=== PATIENT | female | born 1945 | race Caucasian/White ===

== ENCOUNTER 2020-08-25 13:16 | Emergency (ER) | payer MEDICARE, SELFPAY ==
[2020-08-25] VITALS (12 sets, daily range): BP systolic 143–194; BP diastolic 70–112; PULSE 69–114; RESP 18–33; TEMP 36.7; O2SAT 84–100; BMI 46.3
--- NOTE | 2020-08-25 14:34 | XR_ITS ---
WS: [id number] PORTABLE CHEST HISTORY: dyspnea/cough COMPARISON: 08/12/2012 Bilateral patchy scattered opacifications and interstitial thickening. New since 08/12/2012. Lung volu mes are slightly decreased. No pleural effusion or pneumothorax. Cardiac size: Normal. Mediastinum/Aorta: Mild atherosclerosis aorta. No osseous abnormality seen. XR/XR chest 1V portable [id number] IMPRESSION: Bilateral interstitial thickening and patchy opacifications. Consistent with mi ld fluid overload or viral pneumonia.
--- NOTE | 2020-08-25 15:05 | W.ED.COVID ---
Documented by User: Milton Storm DO 08/28/20 06:34 HPI - COVID General: Chief Complaint: Shortness of Breath/Dyspnea Stated Complaint: COVID SYMPTOMS Time Seen by Provider: 08/25/20 15:05 Triage information: Has fever, cough or shortness of breath. No known COVID + exposure last 14 days History of Present Illness: HPI Narrative: 75 yo female female presents emergency room with complaint of cough and shortness of breath. 2 weeks ago she had known exposure to COVID-19. She normally is not on oxygen. She presents today with increasing cough and shortness of breath early on in the course she had some diarrhea but that is already resolved. She denies fevers or chills cough is been nonproductive. MD complaint: reported COVID exposure and has COVID symptoms Prior covid testing: no COVID 19 common symptoms: positive fever(s), chills, cough, non-productive cough, dyspnea, fatigue and body aches; negative throat pain, nasal congestion, nausea, vomiting or diarrhea COVID 19 other sytmptoms: positive chest pressure, requiring oxygen and lethargy; negative chest pain Onset (ago): day(s) Severity: severe Pertinent comorbid conditions: diabetes, hypertension, COPD/respiratory disease and obesity Treatment prior to arrival: none COVID Results: SARS-CoV-2 Antigen (Rapid) Positive (Negative) H 08/25/20 16:10 08/25/20 Review of Systems Const: Reports: fever(s), chills, body aches and fatigue ENMT: Denies: throat pain, ear or mastoid pain, nasal discharge or nasal congestion Card: Denies: chest pain, edema, dyspnea on exertion or orthopnea Resp: Reports: dyspnea and non-productive cough GI: Denies: abdominal pain, nausea, vomiting, hematemesis, coffee ground emesis, diarrhea, constipation, bloating, hematochezia or melena : Denies: flank pain, difficulty voiding, dysuria, urinary frequency or urinary urgency Skin/Breast: Denies: rash or pruritus PFSH ED PFSH: Medical History (Updated 08/25/20 @ 17:34 by Milton Storm DO) COPD (chronic obstructive pulmonary disease) Diabetes mellitus Hypertension Physical Exam Const: COMMON NORMALS: no acute distress GENERAL APPEARANCE: cooperative and comfortable ORIENTATION/CONSCIOUSNESS: Yes awake, Yes oriented to person, Yes oriented to place and Yes oriented to time HENMT: COMMON NORMALS: normocephalic, atraumatic and hearing grossly normal bilaterally HEAD & SCALP: normocephalic and atraumatic Eye: COMMON NORMALS: Equal, round and reactive pupils present, EOMs intact bilaterally, conjunctivae normal and no scleral icterus CONJUNCTIVA: Yes conjunctivae normal PUPIL: Yes Equal, round and reactive pupils present Neck/C-Spine: COMMON NORMALS: no JVD Resp: AUSCULTATION: rhonchi and wheezes Cardio: COMMON NORMALS: no JVD, regular rate, regular rhythm and No murmurs present (Cardio) RATE: regular rate RHYTHM: regular rhythm GI: COMMON NORMALS: Soft to palpation and No hepatosplenomegaly present AUSCULTATION: Yes normoactive bowel sounds PALPATION: Yes Soft to palpation, No Tenderness to palpation present (GI), No Guarding due to palpation present (GI) and Yes No hepatosplenomegaly present Extremity: COMMON NORMALS: normal to inspection, capillary refill normal, no clubbing, cyanosis or edema, no calf tenderness and no pedal edema Neuro: SENSORIUM/ORIENTATION: Yes oriented to person, Yes oriented to place and Yes oriented to time Skin: COMMON NORMALS: no rashes or lesions noted GENERAL SKIN EXAM: no rashes or lesions noted Course Vital Signs: Vital signs: Vital Signs Temperature 98.1 F 08/26/20 02:32 Pulse Rate 93 08/26/20 02:32 Respiratory Rate 25 H 08/26/20 02:32 Blood Pressure 170/97 08/26/20 02:32 Pulse Oximetry 92 08/26/20 02:32 MDM - COVID MDM Narrative: Medical decision making narrative: Patient will require VICU due to increased oxygen needs. She has been given remdesivir and dexamethasone as well as Lovenox because her D-dimer is greater than 20. At this time are waiting on a CTA of the chest anticipate transfer to appropriate facility once bed is found. Care transferred to Dr. Denton at change of shift. Lab Data: Labs: Lab Results 08/25/20 08/25/20 08/25/20 Range/Units 15:32 15:32 15:32 WBC 9.0 (4.0-10.0) 10^3/ uL RBC 3.87 L (4.1-5.3) 10^6/u L Hgb 10.9 L (11.5-15.3) g/dL Hct 35.3 L (37.0-47.0) % MCV 91.2 (81-99) fL MCH 28.2 (28.0-34.0) pg MCHC 30.9 (30.0-36.0) g/dL RDW 15.5 H (12.1-15.1) % Plt Count 152 (130-400) 10^3/c mm MPV 11.1 H (7.4-10.4) fL Neut % (Auto) 72.9 % Lymph % (Auto) 9.0 % Graves % (Auto) 13.5 % Eos % (Auto) 1.9 % Baso % (Auto) 0.4 % Neut # (Auto) 6.56 (1.8-7.7) 10^3/u L Lymph # (Auto) 0.8 (0.8-4.8) 10^3/u L Graves # (Auto) 1.2 H (0.2-0.9) 10^3/u L Eos # (Auto) 0.2 (0.0-0.8) 10^3/u L Baso # (Auto) 0.0 (0.0-0.1) 10^3/u L Nucleated RBC % (a uto) 0.6 % Nucleated RBCs # 0.1 /100WBC Fibrinogen 426 (174-498) mg/dL D-Dimer >= 20.00 H (0-0.59) ug/mIFE U Specimen Type Sample Site ABG pH (7.35-7.45) ABG pCO2 (35-45) mmHg ABG pO2 (80.0-100.0) mmH g ABG HCO3 (22-26) mmol/L ABG Base Excess (-2.0-2.0) mmol/ L Silas Test Hematocrit (37-47) % O2 Delivery Device O2 Liters/Min % FiO2 % Special Effects Technician ID Sodium 142 (136-145) mmol/L Potassium 3.6 (3.5-5.1) mmol/L Chloride 102 (98-107) mmol/L Carbon Dioxide 25 (22-29) mmol/L Anion Gap 18.6 (5-19) BUN 27 H (8-23) mg/dL Creatinine 1.0 H (0.5-0.9) mg/dL GFR Calculation Not Reportable Glucose 277 H (65-115) mg/dL POC Glucose (70-110) mg/dL Calculated Osmolal ity 309 H (285-295) mOsm/k g Lactic Acid (0.5-2.2) mmol/L Calcium 9.1 (8.5-10.5) mg/dL Total Bilirubin 0.5 (0.15-1.2) mg/dL AST 16 (0-32) U/L ALT 12 (0-33) U/L Alkaline Phosphata se 122 H (35-105) IU/L Lactate Dehydrogen ase 485 H (135-214) U/L C-Reactive Protein 226.8 H (0.0-4.9) mg/L Total Protein 6.9 (6.6-8.7) g/dL Albumin 3.3 L (3.5-5.2) g/dL Globulin 3.6 (1.3-4.6) g/dL Procalcitonin 0.29 (0-0.5) ng/mL SARS-CoV-2 Ag (Rap id) (Negative) 08/25/20 08/25/20 08/25/20 Range/Units 15:32 16:10 16:37 WBC (4.0-10.0) 10^3/ uL RBC (4.1-5.3) 10^6/u L Hgb (11.5-15.3) g/dL Hct (37.0-47.0) % MCV (81-99) fL MCH (28.0-34.0) pg MCHC (30.0-36.0) g/dL RDW (12.1-15.1) % Plt Count (130-400) 10^3/c mm MPV (7.4-10.4) fL Neut % (Auto) % Lymph % (Auto) % Graves % (Auto) % Eos % (Auto) % Baso % (Auto) % Neut # (Auto) (1.8-7.7) 10^3/u L Lymph # (Auto) (0.8-4.8) 10^3/u L Graves # (Auto) (0.2-0.9) 10^3/u L Eos # (Auto) (0.0-0.8) 10^3/u L Baso # (Auto) (0.0-0.1) 10^3/u L Nucleated RBC % (a uto) % Nucleated RBCs # /100WBC Fibrinogen (174-498) mg/dL D-Dimer (0-0.59) ug/mIFE U Specimen Type Arterial Sample Site Radial, left ABG pH 7.38 (7.35-7.45) ABG pCO2 44.8 (35-45) mmHg ABG pO2 73.7 L (80.0-100.0) mmH g ABG HCO3 26.6 H (22-26) mmol/L ABG Base Excess 1.2 (-2.0-2.0) mmol/ L Silas Test Pos Hematocrit 33.6 L (37-47) % O2 Delivery Device Nc O2 Liters/Min % FiO2 36.0 % Special Effects Technician ID Cak Sodium (136-145) mmol/L Potassium (3.5-5.1) mmol/L Chloride (98-107) mmol/L Carbon Dioxide (22-29) mmol/L Anion Gap (5-19) BUN (8-23) mg/dL Creatinine (0.5-0.9) mg/dL GFR Calculation Glucose (65-115) mg/dL POC Glucose (70-110) mg/dL Calculated Osmolal ity (285-295) mOsm/k g Lactic Acid 1.9 (0.5-2.2) mmol/L Calcium (8.5-10.5) mg/dL Total Bilirubin (0.15-1.2) mg/dL AST (0-32) U/L ALT (0-33) U/L Alkaline Phosphata se (35-105) IU/L Lactate Dehydrogen ase (135-214) U/L C-Reactive Protein (0.0-4.9) mg/L Total Protein (6.6-8.7) g/dL Albumin (3.5-5.2) g/dL Globulin (1.3-4.6) g/dL Procalcitonin (0-0.5) ng/mL SARS-CoV-2 Ag (Rap id) Positive H (Negative) 08/25/20 08/26/20 08/26/20 Range/Units 20:24 00:41 02:01 WBC (4.0-10.0) 10^3/ uL RBC (4.1-5.3) 10^6/u L Hgb (11.5-15.3) g/dL Hct (37.0-47.0) % MCV (81-99) fL MCH (28.0-34.0) pg MCHC (30.0-36.0) g/dL RDW (12.1-15.1) % Plt Count (130-400) 10^3/c mm MPV (7.4-10.4) fL Neut % (Auto) % Lymph % (Auto) % Graves % (Auto) % Eos % (Auto) % Baso % (Auto) % Neut # (Auto) (1.8-7.7) 10^3/u L Lymph # (Auto) (0.8-4.8) 10^3/u L Graves # (Auto) (0.2-0.9) 10^3/u L Eos # (Auto) (0.0-0.8) 10^3/u L Baso # (Auto) (0.0-0.1) 10^3/u L Nucleated RBC % (a uto) % Nucleated RBCs # /100WBC Fibrinogen (174-498) mg/dL D-Dimer (0-0.59) ug/mIFE U Specimen Type Arterial Sample Site Brachial, right ABG pH 7.37 (7.35-7.45) ABG pCO2 44.1 (35-45) mmHg ABG pO2 78.0 L (80.0-100.0) mmH g ABG HCO3 25.6 (22-26) mmol/L ABG Base Excess 0.1 (-2.0-2.0) mmol/ L Silas Test Pos Hematocrit 33.8 L (37-47) % O2 Delivery Device Nc O2 Liters/Min 6.0 % FiO2 44.0 % Special Effects Technician ID [id number] Sodium (136-145) mmol/L Potassium (3.5-5.1) mmol/L Chloride (98-107) mmol/L Carbon Dioxide (22-29) mmol/L Anion Gap (5-19) BUN (8-23) mg/dL Creatinine (0.5-0.9) mg/dL GFR Calculation Glucose (65-115) mg/dL POC Glucose 344 284 (70-110) mg/dL Calculated Osmolal ity (285-295) mOsm/k g Lactic Acid (0.5-2.2) mmol/L Calcium (8.5-10.5) mg/dL Total Bilirubin (0.15-1.2) mg/dL AST (0-32) U/L ALT (0-33) U/L Alkaline Phosphata se (35-105) IU/L Lactate Dehydrogen ase (135-214) U/L C-Reactive Protein (0.0-4.9) mg/L Total Protein (6.6-8.7) g/dL Albumin (3.5-5.2) g/dL Globulin (1.3-4.6) g/dL Procalcitonin (0-0.5) ng/mL SARS-CoV-2 Ag (Rap id) (Negative) COVID Results: SARS-CoV-2 Antigen (Rapid) Positive (Negative) H 08/25/20 16:10 08/25/20 Discharge Plan Discharge Patient Disposition: Xfer Short-Term Hosp Clinical Impression: Pneumonia due to 2019-nCoV, Diabetes mellitus, COPD (chronic obstructive pulmonary disease), Hypertension Condition: Stable Referrals: Chinmay Mendoza [Primary Care Provider] - Coding Level of Care Code ED Telecommunications Equipment Installer for Chg Fwd Exam Comprehensive Documented by User: Abisai Denton DO 08/26/20 04:41 HPI - COVID General: Chief Complaint: Shortness of Breath/Dyspnea Stated Complaint: COVID SYMPTOMS Time Seen by Provider: 08/25/20 15:05 COVID Results: SARS-CoV-2 Antigen (Rapid) Positive (Negative) H 08/25/20 16:10 08/25/20 PFS ED PFSH: Medical History (Updated 08/25/20 @ 17:34 by Milton Storm DO) COPD (chronic obstructive pulmonary disease) Diabetes mellitus Hypertension Course Vital Signs: Vital signs: Vital Signs Temperature 98.1 F 08/26/20 02:32 Pulse Rate 93 08/26/20 02:32 Respiratory Rate 25 H 08/26/20 02:32 Blood Pressure 170/97 08/26/20 02:32 Pulse Oximetry 92 08/26/20 02:32 MDM - COVID MDM Narrative: Medical decision making narrative: 75-year-old female checked out to me at shift change by Dr. Storm. This lady is COVID-19 positive. She does not have a pulmonary embolus, but does have significant infiltrates on CTA. She is requiring quite a bit of oxygen, 5 to 6 L by oxygen mask at this point. Her blood pressure is 165/89. We have no viral ICU beds available in our hospital system currently. We have called multiple facilities. We have an accepting physician at bed at [facility]. She has been quite stable here, but has desaturations frequently with any activity such as getting up to the bedside commode. She is received remdesivir here, as well as dexamethasone. She is awaiting EMS transfer. Helicopter transfer has been requested, but denied due to weather. Lab Data: Labs: Lab Results 08/25/20 08/25/20 08/25/20 Range/Units 15:32 15:32 15:32 WBC 9.0 (4.0-10.0) 10^3/ uL RBC 3.87 L (4.1-5.3) 10^6/u L Hgb 10.9 L (11.5-15.3) g/dL Hct 35.3 L (37.0-47.0) % MCV 91.2 (81-99) fL MCH 28.2 (28.0-34.0) pg MCHC 30.9 (30.0-36.0) g/dL RDW 15.5 H (12.1-15.1) % Plt Count 152 (130-400) 10^3/c mm MPV 11.1 H (7.4-10.4) fL Neut % (Auto) 72.9 % Lymph % (Auto) 9.0 % Graves % (Auto) 13.5 % Eos % (Auto) 1.9 % Baso % (Auto) 0.4 % Neut # (Auto) 6.56 (1.8-7.7) 10^3/u L Lymph # (Auto) 0.8 (0.8-4.8) 10^3/u L Graves # (Auto) 1.2 H (0.2-0.9) 10^3/u L Eos # (Auto) 0.2 (0.0-0.8) 10^3/u L Baso # (Auto) 0.0 (0.0-0.1) 10^3/u L Nucleated RBC % (a uto) 0.6 % Nucleated RBCs # 0.1 /100WBC Fibrinogen 426 (174-498) mg/dL D-Dimer >= 20.00 H (0-0.59) ug/mIFE U Specimen Type Sample Site ABG pH (7.35-7.45) ABG pCO2 (35-45) mmHg ABG pO2 (80.0-100.0) mmH g ABG HCO3 (22-26) mmol/L ABG Base Excess (-2.0-2.0) mmol/ L Silas Test Hematocrit (37-47) % O2 Delivery Device O2 Liters/Min % FiO2 % Special Effects Technician ID Sodium 142 (136-145) mmol/L Potassium 3.6 (3.5-5.1) mmol/L Chloride 102 (98-107) mmol/L Carbon Dioxide 25 (22-29) mmol/L Anion Gap 18.6 (5-19) BUN 27 H (8-23) mg/dL Creatinine 1.0 H (0.5-0.9) mg/dL GFR Calculation Not Reportable Glucose 277 H (65-115) mg/dL POC Glucose (70-110) mg/dL Calculated Osmolal ity 309 H (285-295) mOsm/k g Lactic Acid (0.5-2.2) mmol/L Calcium 9.1 (8.5-10.5) mg/dL Total Bilirubin 0.5 (0.15-1.2) mg/dL AST 16 (0-32) U/L ALT 12 (0-33) U/L Alkaline Phosphata se 122 H (35-105) IU/L Lactate Dehydrogen ase 485 H (135-214) U/L C-Reactive Protein 226.8 H (0.0-4.9) mg/L Total Protein 6.9 (6.6-8.7) g/dL Albumin 3.3 L (3.5-5.2) g/dL Globulin 3.6 (1.3-4.6) g/dL Procalcitonin 0.29 (0-0.5) ng/mL SARS-CoV-2 Ag (Rap id) (Negative) 08/25/20 08/25/20 08/25/20 Range/Units 15:32 16:10 16:37 WBC (4.0-10.0) 10^3/ uL RBC (4.1-5.3) 10^6/u L Hgb (11.5-15.3) g/dL Hct (37.0-47.0) % MCV (81-99) fL MCH (28.0-34.0) pg MCHC (30.0-36.0) g/dL RDW (12.1-15.1) % Plt Count (130-400) 10^3/c mm MPV (7.4-10.4) fL Neut % (Auto) % Lymph % (Auto) % Graves % (Auto) % Eos % (Auto) % Baso % (Auto) % Neut # (Auto) (1.8-7.7) 10^3/u L Lymph # (Auto) (0.8-4.8) 10^3/u L Graves # (Auto) (0.2-0.9) 10^3/u L Eos # (Auto) (0.0-0.8) 10^3/u L Baso # (Auto) (0.0-0.1) 10^3/u L Nucleated RBC % (a uto) % Nucleated RBCs # /100WBC Fibrinogen (174-498) mg/dL D-Dimer (0-0.59) ug/mIFE U Specimen Type Arterial Sample Site Radial, left ABG pH 7.38 (7.35-7.45) ABG pCO2 44.8 (35-45) mmHg ABG pO2 73.7 L (80.0-100.0) mmH g ABG HCO3 26.6 H (22-26) mmol/L ABG Base Excess 1.2 (-2.0-2.0) mmol/ L Silas Test Pos Hematocrit 33.6 L (37-47) % O2 Delivery Device Nc O2 Liters/Min % FiO2 36.0 % Special Effects Technician ID Cak Sodium (136-145) mmol/L Potassium (3.5-5.1) mmol/L Chloride (98-107) mmol/L Carbon Dioxide (22-29) mmol/L Anion Gap (5-19) BUN (8-23) mg/dL Creatinine (0.5-0.9) mg/dL GFR Calculation Glucose (65-115) mg/dL POC Glucose (70-110) mg/dL Calculated Osmolal ity (285-295) mOsm/k g Lactic Acid 1.9 (0.5-2.2) mmol/L Calcium (8.5-10.5) mg/dL Total Bilirubin (0.15-1.2) mg/dL AST (0-32) U/L ALT (0-33) U/L Alkaline Phosphata se (35-105) IU/L Lactate Dehydrogen ase (135-214) U/L C-Reactive Protein (0.0-4.9) mg/L Total Protein (6.6-8.7) g/dL Albumin (3.5-5.2) g/dL Globulin (1.3-4.6) g/dL Procalcitonin (0-0.5) ng/mL SARS-CoV-2 Ag (Rap id) Positive H (Negative) 08/25/20 08/26/20 08/26/20 Range/Units 20:24 00:41 02:01 WBC (4.0-10.0) 10^3/ uL RBC (4.1-5.3) 10^6/u L Hgb (11.5-15.3) g/dL Hct (37.0-47.0) % MCV (81-99) fL MCH (28.0-34.0) pg MCHC (30.0-36.0) g/dL RDW (12.1-15.1) % Plt Count (130-400) 10^3/c mm MPV (7.4-10.4) fL Neut % (Auto) % Lymph % (Auto) % Graves % (Auto) % Eos % (Auto) % Baso % (Auto) % Neut # (Auto) (1.8-7.7) 10^3/u L Lymph # (Auto) (0.8-4.8) 10^3/u L Graves # (Auto) (0.2-0.9) 10^3/u L Eos # (Auto) (0.0-0.8) 10^3/u L Baso # (Auto) (0.0-0.1) 10^3/u L Nucleated RBC % (a uto) % Nucleated RBCs # /100WBC Fibrinogen (174-498) mg/dL D-Dimer (0-0.59) ug/mIFE U Specimen Type Arterial Sample Site Brachial, right ABG pH 7.37 (7.35-7.45) ABG pCO2 44.1 (35-45) mmHg ABG pO2 78.0 L (80.0-100.0) mmH g ABG HCO3 25.6 (22-26) mmol/L ABG Base Excess 0.1 (-2.0-2.0) mmol/ L Silas Test Pos Hematocrit 33.8 L (37-47) % O2 Delivery Device Nc O2 Liters/Min 6.0 % FiO2 44.0 % Special Effects Technician ID [id number] Sodium (136-145) mmol/L Potassium (3.5-5.1) mmol/L Chloride (98-107) mmol/L Carbon Dioxide (22-29) mmol/L Anion Gap (5-19) BUN (8-23) mg/dL Creatinine (0.5-0.9) mg/dL GFR Calculation Glucose (65-115) mg/dL POC Glucose 344 284 (70-110) mg/dL Calculated Osmolal ity (285-295) mOsm/k g Lactic Acid (0.5-2.2) mmol/L Calcium (8.5-10.5) mg/dL Total Bilirubin (0.15-1.2) mg/dL AST (0-32) U/L ALT (0-33) U/L Alkaline Phosphata se (35-105) IU/L Lactate Dehydrogen ase (135-214) U/L C-Reactive Protein (0.0-4.9) mg/L Total Protein (6.6-8.7) g/dL Albumin (3.5-5.2) g/dL Globulin (1.3-4.6) g/dL Procalcitonin (0-0.5) ng/mL SARS-CoV-2 Ag (Rap id) (Negative) COVID Results: SARS-CoV-2 Antigen (Rapid) Positive (Negative) H 08/25/20 16:10 08/25/20 Discharge Plan Discharge Patient Disposition: Xfer Short-Term Hosp Clinical Impression: Pneumonia due to 2019-nCoV, Diabetes mellitus, COPD (chronic obstructive pulmonary disease), Hypertension Condition: Stable Referrals: Chinmay Mendoza [Primary Care Provider] - Coding Level of Care Code ED Telecommunications Equipment Installer for Chg Fwd Exam Comprehensive
--- NOTE | 2020-08-25 15:40 | CTR_ITS ---
PROCEDURE INFORMATION: Exam: CT Angiography Chest With Contrast Exam date and time: 08/25/2020 5:56 PM Age: 75 years old Clinical indication: Cough and shortness of breath; Patient HX: Covid+ w cough and SOB; Additional info: Dyspnea TECHNIQUE: Imaging protocol: Computed tomographic angiography of the chest with intravenous contrast. 3D rendering (Not supervised by radiologist): MIP and/or 3D reconstructed images were created by the technologist. Radiation optimization: All CT scans at this facility use at least one of these dose optimization techniques: automated exposure control; mA and/or kV adjustment per patient size (includes targeted exams where dose is matched to clinical indication); or iterative reconstruction. Contrast material: VISI 320; Contrast volume: 58 ml; Contrast route: INTRAVENOUS (IV); COMPARISON: CR XR chest 1V portable [id number] 08/25/2020 2:44 PM RADIATION DOSE METRICS: Total DLP (mGy-cm): 520.82 FINDINGS: Pulmonary arteries: There is no pulmonary embolus. Aorta: Unremarkable. No aortic aneurysm. No aortic dissection. Lungs: Bilateral multifocal ground-glass/airspace opacities are noted in the lungs. Pleural space: Unremarkable. No pneumothorax. No pleural effusion. Heart: The heart is enlarged. Lymph nodes: Multiple subcentimeter lymph nodes are noted in the mediastinum. There is no pathologic adenopathy. Gallbladder and bile ducts: There has been a cholecystectomy. There is pneumobilia. Bones/joints: Unremarkable. No acute fracture. Soft tissues: Unremarkable. CT/CT angio chest PE protcl [id number] IMPRESSION: 1. There is no pulmonary embolus. 2. Bilateral multifocal ground-glass/airspace opacities are noted in the lungs. Commonly reported imaging features of COVID-19 pneumonia are present. Other processes such as influenza pneumonia and organizing pneumonia, as can be seen with drug toxicity and connective tissue disease, can cause a similar imaging pattern. (Reference: Meir) REFERENCES: Meir Lopez, et al., Radiological Society of [place] Expert Consensus Statement on Reporting Chest CT Findings Related to COVID-19. Endorsed by the Society of Thoracic Radiology, the [place] [employer], and RSNA. Published December 29, 2019. Radiation Dose CTDIVOL = (mGy): DLP = 520.82 (mGy-cm)
[2020-08-25 15:48] LABS: Basophils % 0.4 %; Eosinophils # 0.2 10^3/uL (0.0-0.8); Eosinophils % 1.9 %; Hematocrit 35.3 % (37.0-47.0); Hemoglobin 10.9 g/dL (11.5-15.3); Lymphocytes # 0.8 10^3/uL (0.8-4.8); Mean Corpuscular HGB Conc 30.9 g/dL (30.0-36.0); Mean Corpuscular Hemoglobin 28.2 pg (28.0-34.0); Mean Corpuscular Volume 91.2 fL (81-99); Mean Platelet Volume 11.1 fL (7.4-10.4); Monocytes # 1.2 10^3/uL (0.2-0.9); Monocytes % 13.5 %; Neutrophils # 6.56 10^3/uL (1.8-7.7); Neutrophils % 72.9 %; Nucleated Red Blood Cells # 0.1 /100WBC; Nucleated Red Blood Cells % 0.6 %; Platelet Count 152 10^3/cmm (130-400); Red Blood Count 3.87 10^6/uL (4.1-5.3); Red Cell Distribution Width 15.5 % (12.1-15.1)
[2020-08-25 15:59] LABS: Fibrinogen 426 mg/dL (174-498)
[2020-08-25 16:12] LABS: D Dimer >= 20.00 ug/mIFEU (0-0.59)
[2020-08-25] MEDS: dexamethasone 4 mg/mL INJ 6 MG IVP (16:18)
[2020-08-25 16:19] LABS: Procalcitonin 0.29 ng/mL (0-0.5)
[2020-08-25 16:25] LABS: Lactic Sepsis W/Reflex 1.9 mmol/L (0.5-2.2)
--- NOTE | 2020-08-25 16:32 | ECG_ITS ---
[facility] Test Date: 2020-08-25 Pat Name: Aga Dalton Department: Room: Gender: Female Systems Integration Analyst: : 1945 Requested By: Milton Silva Order Number: [id number] Philipp MD: Madiha Ryan M.D. Measurements Intervals [place] Rate: 103 P: 48 [place]: 148 QRS: -1 QRSD: 90 T: 31 QT: 337 QTc: 443 Interpretive Statements SINUS TACHYCARDIA MODERATE ST DEPRESSION [0.05+ mV ST DEPRESSION] No previous ECG available for comparison Electronically Signed On 08-25-2020 19:45:57 SCHOOL CHILDCARE ATTENDANT by Madiha Ryan M.D. [id number]
[2020-08-25 16:48] LABS: SARS Covid-2 Antigen Positive (Negative)
[2020-08-25 16:49] LABS: ABG PCO2 44.8 mmHg (35-45); ABG PH Result 7.38 (7.35-7.45); Arterial Blood Gas Hematocrit 33.6 % (37-47); Base Excess ABG 1.2 mmol/L (-2.0-2.0); Blood Gas Allen Test Pos; Blood Gas Operator Identificat CAK; Blood Gas Sample Site Radial, left; Blood Gas Sample Type Arterial; HCO3 ABG 26.6 mmol/L (22-26); Oxygen Device NC; PO2 ABG 73.7 mmHg (80.0-100.0)
[2020-08-25 17:27] LABS: Alanine Aminotransferase 12 U/L (0-33); Albumin Level 3.3 g/dL (3.5-5.2); Alkaline Phosphatase 122 IU/L (35-105); Anion Gap 18.6 (5-19); Aspartate Amino Transferase 16 U/L (0-32); Blood Urea Nitrogen 27 mg/dL (8-23); C Reactive Protein 226.8 mg/L (0.0-4.9); Calcium 9.1 mg/dL (8.5-10.5); Carbon Dioxide 25 mmol/L (22-29); Chloride 102 mmol/L (98-107); Globulin 3.6 g/dL (1.3-4.6); Glucose 277 mg/dL (65-115); Lactate Dehydrogenase 485 U/L (135-214); Osmolality Calculated 309 mOsm/kg (285-295); Potassium 3.6 mmol/L (3.5-5.1); Sodium 142 mmol/L (136-145); Total Bilirubin 0.5 mg/dL (0.15-1.2); Total Protein 6.9 g/dL (6.6-8.7)
[2020-08-25] MEDS: iodixanol 320 mg/mL 100mL Btl IV (18:00)
[2020-08-25] MEDS: LORazepam 2 mg/mL INJ 1 mL 1 MG IVP (18:20)
[2020-08-25] MEDS: enoxaparin 120 mg/0.8 mL Syringe SUBCUT (18:21)
--- NOTE | 2020-08-25 19:50 | ECG_ITS ---
[facility] Test Date: 2020-08-25 Pat Name: Aga Dalton Department: Room: Gender: Female Senior Principal Process Engineer: : 1945 Requested By: Abisai Hanson Order Number: [id number] Segal MD: Madiha Ryan M.D. Measurements Intervals [place] Rate: 111 P: 44 OR: 168 QRS: -9 QRSD: 93 T: 22 QT: 348 QTc: 474 Interpretive Statements SINUS TACHYCARDIA POSSIBLE LEFT ATRIAL ENLARGEMENT [-0.1mV P WAVE IN V1/V2] MODERATE ST DEPRESSION [0.05+ mV ST DEPRESSION] Compared to ECG 08/25/2020 16:49:17 No significant changes Electronically Signed On 08-25-2020 23:18:02 PORTFOLIO CONSULTANT by Madiha Ryan M.D. [id number] f
--- NOTE | 2020-08-25 20:05 | PC.NURSE ---
While giving patient her medication she started asking if we found that pill out there. When she was asked what she meant patient began telling me to go out and tell him to measure that and starting asking if Karen was coming in. Physician notified of change in mental status.
[2020-08-25] MEDS: metoprolol tartrate 1 mg/1 mL SDV 5 mL 5 MG IV ×2 (20:06→23:23)
[2020-08-25 20:35] LABS: ABG PCO2 44.1 mmHg (35-45); ABG PH Result 7.37 (7.35-7.45); Arterial Blood Gas Hematocrit 33.8 % (37-47); Base Excess ABG 0.1 mmol/L (-2.0-2.0); Blood Gas Allen Test Pos; Blood Gas Sample Site Brachial, right; Blood Gas Sample Type Arterial; HCO3 ABG 25.6 mmol/L (22-26); Oxygen Device NC
[2020-08-25] MEDS: enalaprilat 1.25 mg/mL Inj IVP (23:23)
[2020-08-26] VITALS: BP 174/74; PULSE 95; RESP 29; O2SAT 98
[2020-08-26 00:15] VITALS: BP 174/74; PULSE 93; RESP 26; O2SAT 97
[2020-08-26 00:45] VITALS: BP 141/82; PULSE 92; RESP 26; O2SAT 97
[2020-08-26 00:46] LABS: Glucose Point of Care 344 mg/dL (70-110)
[2020-08-26 01:00] VITALS: BP 126/86; PULSE 106; RESP 15; O2SAT 94
[2020-08-26] MEDS: insulin regular-human 100 units/1 mL 6 UNIT IVP (01:00)
[2020-08-26 01:30] VITALS: BP 164/73; PULSE 92; RESP 27; O2SAT 97
[2020-08-26 02:08] LABS: Glucose Point of Care 284 mg/dL (70-110)
[2020-08-26] MEDS: insulin regular-human 100 units/1 mL 8 UNIT IVP (02:16)
[2020-08-26 02:32] VITALS: BP 170/97; PULSE 93; RESP 25; TEMP 36.7; O2SAT 92
--- NOTE | 2020-08-26 03:27 | PC.SOCIAL ---
Multiple facilities contacted seeking a [facility] ICU bed. Availability at [facility], they spoke to Dr. Denton and accepted.
== END 2020-08-26 02:32 | disposition short-term general hospital (02) ==
PROVIDERS: Family Medicine; Emergency Provider Emergency Medicine; PCP Family Medicine
DX: J44.0 Chronic obstructive pulmonary disease with (acute) lower respiratory infection (principal); J12.89 Other viral pneumonia; U07.1 COVID-19; E11.9 Type 2 diabetes mellitus without complications; I10 Essential (primary) hypertension
CPT/HCPCS: 12345; 36415; 36416; 36600; 71045; 71275; 80053; 82803; 82962; 83605; 83615; 84145; 85025; 85378; 85384; 86140; 87426; 93005; 96365; 96372; 96375; 96376; 99284; 99285; J1100; J1650; J1815; J2060; J3490; Q9967

== ENCOUNTER → 2021-02-12 08:52 | Outpatient (BNVA) | payer MEDICARE, SELFPAY | PROVIDERS: PCP Family Medicine; Visit Provider Nurse Practitioner Family | DX: M15.4 Erosive (osteo)arthritis (principal); M79.645 Pain in left finger(s) | CPT/HCPCS: 73140; 84550 ==

== ENCOUNTER → 2022-09-12 16:57 | Outpatient (BNVA) | payer MEDICARE, SELFPAY | PROVIDERS: PCP Family Medicine; Visit Provider Family Medicine | DX: L03.011 Cellulitis of right finger (principal); K92.1 Melena; E10.69 Type 1 diabetes mellitus with other specified complication | CPT/HCPCS: 83550; 85025 ==

== ENCOUNTER → 2022-12-09 10:49 | Outpatient (BNVA) | payer MEDICARE, SELFPAY | PROVIDERS: PCP Family Medicine; Visit Provider Podiatrist Foot & Ankle Surgery | DX: I73.9 Peripheral vascular disease, unspecified (principal); E10.69 Type 1 diabetes mellitus with other specified complication; B35.1 Tinea unguium; L84 Corns and callosities | CPT/HCPCS: 11056; 11721; 73630; 99204 ==

== ENCOUNTER → 2023-01-08 09:57 | Outpatient (BNVA) | payer MEDICARE, SELFPAY | PROVIDERS: PCP Family Medicine; Visit Provider Family Medicine | DX: R10.2 Pelvic and perineal pain (principal); R82.998 Other abnormal findings in urine; E11.9 Type 2 diabetes mellitus without complications; N39.0 Urinary tract infection, site not specified | CPT/HCPCS: 81003; 83036; 87086 ==

== ENCOUNTER 2023-01-14 08:40 | Outpatient (CLI) | payer MEDICARE, SELFPAY ==
--- NOTE | 2023-01-14 09:00 | USCV_ITS ---
Aga Dalton Age: 78 Gender: F : 1945 Exam Date: 01/14/2023 09:11 Ordering Phys: Chinmay Segovia DPM Technologist: Exam Location: [facility] [place] Indication: pad RIGHT LEFT Brachial 182.00 mmHg Brachial 178.00 mmHg Pressure (mmHg) Waveform Pressure (mmHg) Waveform 220.00 BARREL CLEANER 220.00 220.00 DPA 220.00 70.00 Pre-Exercise Toe Pressure 64.00 0.38 Pre-Exercise Toe/Brachial Index 0.35 FINDINGS Noncompressible ankle vessels bilaterally Preexercise toe-brachial index of 0.38 on the right and 0.35 on the left CONCLUSIONS 1. Features of extensive arterial sclerosis bilaterally 2. Abnormal toe brachial indices bilaterally suggesting moderate peripheral arterial disease possibly involving the distal vessels Dr Jeet Lynn MD [facility] (Electronically Signed) Final Date: 14 January 2023 17:21 S
== END 2023-01-14 08:41 | disposition home or self-care (01) ==
LOC: RAD 08:44
PROVIDERS: PCP Family Medicine; Visit Provider Podiatrist Foot & Ankle Surgery
DX: I73.9 Peripheral vascular disease, unspecified (principal); I25.10 Atherosclerotic heart disease of native coronary artery without angina pectoris
CPT/HCPCS: 93923

== ENCOUNTER → 2023-01-27 09:26 | Outpatient (BNVA) | payer MEDICARE, SELFPAY | PROVIDERS: PCP Family Medicine; Visit Provider Family Medicine | DX: N39.0 Urinary tract infection, site not specified (principal); M25.511 Pain in right shoulder; M25.512 Pain in left shoulder; E10.69 Type 1 diabetes mellitus with other specified complication; J44.9 Chronic obstructive pulmonary disease, unspecified; E11.9 Type 2 diabetes mellitus without complications; I10 Essential (primary) hypertension; K92.1 Melena | CPT/HCPCS: 80053; 81003; 83540; 85025 ==

== ENCOUNTER → 2023-02-10 11:39 | Outpatient (BNVA) | payer MEDICARE, SELFPAY | PROVIDERS: PCP Family Medicine; Visit Provider Family Medicine | DX: M75.31 Calcific tendinitis of right shoulder (principal); M25.511 Pain in right shoulder | CPT/HCPCS: 73030 ==

== ENCOUNTER → 2023-04-09 14:35 | Outpatient (BNVA) | payer MEDICARE, SELFPAY | PROVIDERS: PCP Family Medicine; Visit Provider Nurse Practitioner Family | DX: R82.998 Other abnormal findings in urine (principal); R06.02 Shortness of breath | CPT/HCPCS: 71046; 81003; 87077; 87086; 87184 ==

== ENCOUNTER → 2023-07-11 16:07 | Outpatient (BNVA) | payer MEDICARE, SELFPAY | PROVIDERS: PCP Family Medicine; Visit Provider Nurse Practitioner Family | DX: I10 Essential (primary) hypertension; E10.69 Type 1 diabetes mellitus with other specified complication | CPT/HCPCS: 80053; 80061; 83036 ==

== ENCOUNTER → 2023-08-04 10:20 | Outpatient (BNVA) | payer MEDICARE, SELFPAY | PROVIDERS: PCP Family Medicine; Visit Provider Podiatrist Foot & Ankle Surgery | DX: B35.1 Tinea unguium (principal); E11.8 Type 2 diabetes mellitus with unspecified complications; I73.9 Peripheral vascular disease, unspecified; L84 Corns and callosities; Z79.4 Long term (current) use of insulin | CPT/HCPCS: 11721 ==

== ENCOUNTER 2023-08-11 14:54 | Outpatient (CLI) | payer MEDICARE, SELFPAY ==
[2023-08-11 15:37] LABS: Urine Appearance Hazy (CLEAR); Urine Color Yellow (Yellow); pH Urine 6 (5-7)
[2023-08-11 15:38] LABS: Add Urine Culture? Yes; Add Urine Microscopic? YES; Bacteria Urine 3+ /hpf; Bilirubin Urine Neg (Negative); Blood Urine Neg (Negative); Glucose Urine UA Norm (Normal); Ketones Urine 1+ (Negative); Leukocyte Esterase Urine 1+ (Negative); Nitrate Urine Negative (Negative); Protein Urine Neg (Negative); Squamous Epithelial Cell Urine 0-4 /hpf (0-5); Urobilinogen Urine Norm (Negative); WBC Urine >100 /hpf (0-5)
== END 2023-08-11 14:55 | disposition home or self-care (01) ==
LOC: LAB 14:58
PROVIDERS: PCP Family Medicine; Visit Provider Family Medicine
DX: Z01.89 Encounter for other specified special examinations (principal)
CPT/HCPCS: 81001; 87077; 87086; 87186

== ENCOUNTER → 2023-09-30 09:56 | Outpatient (BNVA) | payer MEDICARE, SELFPAY | PROVIDERS: PCP Family Medicine; Visit Provider Nurse Practitioner Family | DX: R10.9 Unspecified abdominal pain (principal); N39.0 Urinary tract infection, site not specified; R31.9 Hematuria, unspecified; E10.69 Type 1 diabetes mellitus with other specified complication; I10 Essential (primary) hypertension; Z71.3 Dietary counseling and surveillance | CPT/HCPCS: 81003; 87077; 87086; 87184 ==

== ENCOUNTER → 2023-10-31 10:41 | Outpatient (BNVA) | payer MEDICARE, MEDICAID, SELFPAY | PROVIDERS: PCP Family Medicine; Visit Provider Nurse Practitioner Family | DX: E10.69 Type 1 diabetes mellitus with other specified complication (principal); I10 Essential (primary) hypertension | CPT/HCPCS: 83036 ==

== ENCOUNTER → 2023-12-02 10:59 | Outpatient (BNVA) | payer MEDICARE, MEDICAID, SELFPAY | PROVIDERS: PCP Family Medicine; Visit Provider Nurse Practitioner Family | DX: R39.9 Unspecified symptoms and signs involving the genitourinary system (principal) | CPT/HCPCS: 81000; 81003; 87077; 87086; 87184 ==

== ENCOUNTER → 2024-01-01 10:53 | Outpatient (BNVA) | payer MEDICARE, SELFPAY | PROVIDERS: PCP Family Medicine; Referring Provider Family Medicine; Visit Provider Podiatrist Foot & Ankle Surgery | DX: B35.1 Tinea unguium (principal); E10.69 Type 1 diabetes mellitus with other specified complication; I73.9 Peripheral vascular disease, unspecified; L84 Corns and callosities; Z79.4 Long term (current) use of insulin | CPT/HCPCS: 11721 ==

== ENCOUNTER 2024-01-16 13:15 | Outpatient (CLI) | payer MEDICARE, SELFPAY ==
--- NOTE | 2024-01-16 14:30 | XR_ITS ---
WS: [id number] DEXA (DUAL ENERGY X-RAY ABSORPTIOMETRY) Bone mineral density was performed using a [employer] machine. HISTORY: Z78.0 - Asymptomatic menopausal state COMPARISON: None available. Lumbar spine BMD (L1-L4): 1.472 g/cm2 T score: 2.4 Z score: 3.1 Left forearm BMD: 0.727 g/cm2. T score: -1.7 Z score: 1.1 IMPRESSION: OSTEOPENIA based upon the WHO classification for females.
== END 2024-01-16 13:16 | disposition home or self-care (01) ==
LOC: RAD 13:16
PROVIDERS: PCP Family Medicine; Visit Provider Nurse Practitioner Family
DX: Z78.0 Asymptomatic menopausal state (principal); M85.80 Other specified disorders of bone density and structure, unspecified site
CPT/HCPCS: 77080

== ENCOUNTER → 2024-01-26 10:43 | Outpatient (BNVA) | payer MEDICARE, SELFPAY | PROVIDERS: PCP Family Medicine; Visit Provider Nurse Practitioner Family | DX: R10.9 Unspecified abdominal pain (principal); R30.9 Painful micturition, unspecified; M10.9 Gout, unspecified; K92.1 Melena | CPT/HCPCS: 81000; 84550; 85025; 87077; 87086; 87184 ==

== ENCOUNTER → 2024-02-27 10:18 | Outpatient (BNVA) | payer MEDICARE, SELFPAY | PROVIDERS: PCP Family Medicine; Visit Provider Nurse Practitioner Family | DX: R79.82 Elevated C-reactive protein (CRP) (principal); M25.50 Pain in unspecified joint; M15.2 Bouchard's nodes (with arthropathy); M15.1 Heberden's nodes (with arthropathy); M19.042 Primary osteoarthritis, left hand; M19.041 Primary osteoarthritis, right hand | CPT/HCPCS: 73130; 80053; 85651; 86038; 86140; 86200; 86431 ==

== ENCOUNTER → 2024-06-21 10:28 | Outpatient (BNVA) | payer MEDICARE, SELFPAY | PROVIDERS: PCP Nurse Practitioner Family; Visit Provider Family Medicine | DX: N39.0 Urinary tract infection, site not specified (principal) | CPT/HCPCS: 81000; 81003; 87086 ==

== ENCOUNTER → 2024-08-04 10:20 | Outpatient (BNVA) | payer MEDICARE, SELFPAY | PROVIDERS: PCP Family Medicine; Visit Provider Family Medicine | DX: I10 Essential (primary) hypertension (principal); E55.9 Vitamin D deficiency, unspecified; I77.6 Arteritis, unspecified; N39.0 Urinary tract infection, site not specified; E10.69 Type 1 diabetes mellitus with other specified complication; R30.9 Painful micturition, unspecified | CPT/HCPCS: 80053; 80061; 81003; 82306; 82607; 83036; 84443; 85025; 85651; 86038; 86431; 87077; 87086; 87184 ==

== ENCOUNTER → 2024-10-13 09:35 | Outpatient (BNVA) | payer MEDICARE, SELFPAY | PROVIDERS: PCP Family Medicine; Visit Provider Family Medicine | DX: R30.0 Dysuria (principal); E10.69 Type 1 diabetes mellitus with other specified complication; J44.9 Chronic obstructive pulmonary disease, unspecified; E55.9 Vitamin D deficiency, unspecified; N39.0 Urinary tract infection, site not specified; L08.9 Local infection of the skin and subcutaneous tissue, unspecified; L03.011 Cellulitis of right finger; R79.89 Other specified abnormal findings of blood chemistry | CPT/HCPCS: 80053; 81000; 82306; 82607; 83036; 84443; 87086 ==

== ENCOUNTER → 2025-01-04 14:08 | Outpatient (BNVA) | payer MEDICARE, SELFPAY | PROVIDERS: PCP Family Medicine; Visit Provider Nurse Practitioner Family | DX: L30.9 Dermatitis, unspecified (principal); L60.3 Nail dystrophy; L85.3 Xerosis cutis; L94.2 Calcinosis cutis; I73.00 Raynaud's syndrome without gangrene; L57.8 Other skin changes due to chronic exposure to nonionizing radiation; L57.0 Actinic keratosis; Z08 Encounter for follow-up examination after completed treatment for malignant neoplasm; Z85.828 Personal history of other malignant neoplasm of skin | CPT/HCPCS: 99204 ==

== ENCOUNTER 2025-01-06 11:51 | Outpatient (CLI) | payer MEDICARE, SELFPAY ==
[2025-01-06 12:49] LABS: Erythrocyte Sedimentation Rate 8 mm/hr (0-15)
[2025-01-06 12:58] LABS: C Reactive Protein 3.2 mg/L (0.0-4.9); Calcium 9.4 mg/dL (8.5-10.5)
[2025-01-07 07:21] LABS: Centromere B Antibody <1.0 NEG AI (<1.0 NEG); SCL 70 <1.0 NEG AI (<1.0 NEG)
== END 2025-01-06 11:52 | disposition home or self-care (01) ==
PROVIDERS: PCP Family Medicine; Visit Provider Dermatology
DX: M34.1 CR(E)ST syndrome (principal)
CPT/HCPCS: 36415; 82310; 85651; 86140; 86235

== ENCOUNTER → 2025-01-13 10:41 | Outpatient (BNVA) | payer MEDICARE, SELFPAY | PROVIDERS: PCP Family Medicine; Visit Provider Family Medicine | DX: R30.0 Dysuria (principal) | CPT/HCPCS: 81000; 87086 ==

== ENCOUNTER → 2025-01-19 10:23 | Outpatient (BNVA) | payer MEDICARE, SELFPAY | PROVIDERS: PCP Family Medicine; Visit Provider Dermatology | DX: L98.499 Non-pressure chronic ulcer of skin of other sites with unspecified severity (principal); I73.00 Raynaud's syndrome without gangrene; M34.1 CR(E)ST syndrome; Z08 Encounter for follow-up examination after completed treatment for malignant neoplasm; Z85.828 Personal history of other malignant neoplasm of skin | CPT/HCPCS: 99214 ==

== ENCOUNTER → 2025-03-01 13:25 | Outpatient (BNVA) | payer MEDICARE, SELFPAY | PROVIDERS: PCP Family Medicine; Visit Provider Internal Medicine Rheumatology | DX: M34.1 CR(E)ST syndrome (principal); W57.XXXA Bitten or stung by nonvenomous insect and other nonvenomous arthropods, initial encounter; M19.071 Primary osteoarthritis, right ankle and foot; M79.672 Pain in left foot | CPT/HCPCS: 36415; 73630; 80076; 82306; 82565; 83036; 83520; 85025; 85651; 86140; 86160; 86162; 86235; 86255; 86376; 86480; 86618; 86666; 86704; 86757; 86803; 87340 ==

== ENCOUNTER → 2025-03-16 11:52 | Outpatient (BNVA) | payer MEDICARE, SELFPAY | PROVIDERS: PCP Family Medicine; Visit Provider Family Medicine | DX: R19.7 Diarrhea, unspecified (principal); A04.72 Enterocolitis due to Clostridium difficile, not specified as recurrent | CPT/HCPCS: 87493 ==

== ENCOUNTER 2025-03-17 12:46 | Outpatient (CLI) | payer MEDICARE, SELFPAY ==
--- NOTE | 2025-03-17 13:15 | CTR_ITS ---
PROCEDURE INFORMATION: Exam: CT Chest Without Contrast; Diagnostic Exam date and time: 03/17/2025 1:08 PM Age: 80 years old Clinical indication: Condition or disease; Lung condition and disease; Other: Cr(e)st syndrome; Follow up crest syndrom; Additional info: M34.1 - cr(e)st syndrome TECHNIQUE: Imaging protocol: Diagnostic computed tomography of the chest without contrast. Radiation optimization: All CT scans at this facility use at least one of these dose optimization techniques: automated exposure control; mA and/or kV adjustment per patient size (includes targeted exams where dose is matched to clinical indication); or iterative reconstruction. COMPARISON: CT angio chest PE protcl [id number] 08/25/2020 5:49 PM RADIATION DOSE METRICS: Total DLP (mGy-cm): 495.72 FINDINGS: Lungs: There is no consolidation. Minimal subpleural reticular opacity in the lung bases consistent with subsegmental atelectasis. Mild tracheobronchial calcification. No significant wall thickening or luminal narrowing. Mild peripheral bronchiectasis in both lower lobes. Moderate mosaic perfusion of the lung parenchyma diffusely bilaterally. Pleural spaces: There is no pleural effusion or pneumothorax. Heart: There is mild cardiac enlargement. Marked mitral annular calcification. There is no pericardial effusion. Coronary arteries: There is mild coronary artery calcification. Lymph nodes: There is no mediastinal or hilar lymphadenopathy. Vasculature: There is mild aortic atherosclerotic disease. Gallbladder and biliary ducts: Pneumobilia noted. Cholecystectomy noted. Bones/joints: Bones are unremarkable. Soft tissues: The extrathoracic soft tissues are unremarkable. 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
== END 2025-03-17 12:47 | disposition home or self-care (01) ==
LOC: RAD 12:49
PROVIDERS: PCP Family Medicine; Visit Provider Internal Medicine Rheumatology
DX: M34.1 CR(E)ST syndrome (principal); Z86.16 Personal history of COVID-19
CPT/HCPCS: 71250

== ENCOUNTER → 2025-04-04 10:10 | Outpatient (BNVA) | payer MEDICARE, SELFPAY | PROVIDERS: PCP Family Medicine; Visit Provider Family Medicine | DX: R30.0 Dysuria (principal); N39.0 Urinary tract infection, site not specified | CPT/HCPCS: 81000; 87086 ==

== ENCOUNTER 2025-04-26 14:34 | Emergency (ER) | payer OTHER, MEDICAID, SELFPAY ==
--- OUTSIDE RECORDS SUMMARY | 2024-10-15 02:30 | XMS_ITS ---
Author Organization [facility] Address [address] [place] [address] Care Team Providers Care Mangle Catcher Name Role Phone Dr Ganga Marley DO Primary Care Provider Talib Villagran Unavailable [phone] Christian Zhong Unavailable Unavailable Joseluis Ganin Unavailable [phone] REASON FOR VISIT 3m. repeat EGD for GAVE Encounters Encounter Location Date Provider Diagnosis [facility] [address] [address] 10/15/2024 Abodunrin Badtawny Plan Of Treatment No Information Progress Notes * Aga DALTON RDOB: [birth year] (80 yo F)Acc No.[id number]:10/15/2024 History and Physical Patient: John galan Aga Dozier Provider: Shasta Gan MD :1945 A ge:79 Y S ex:Female Date:10/15/2024 Address:[address], [id number] Pcp:Dr Ganga Marley DO Subjective: * Chief Complaints: * 3 m. repeat EGD for GAVE * Electronic signature of Carl Gan MD on 04/26/2025 at 02:44 PM CDT Sign off status: Pending * Provider: Shasta Gan MD Date: 0 10/15/2024 Generated for Suhaili cynthia/Faalisa/eTransmitting on: 0 04/26/2025 02:44 PM CDT
[2025-04-26 14:39] VITALS: PULSE 83; RESP 16; TEMP 36.8; O2SAT 95; BMI 33.3
--- OUTSIDE RECORDS SUMMARY | 2025-04-26 14:44 | XMS_ITS | Encounter Summary ---
Author Organization [facility] Address [address] [place] [address] Care Team Providers Care Facer Operator Name Role Phone Chinmay Mendoza MD Primary Care Provider [phone] Encounter Details Date Type Department Care Team (Late st Contact Info) Description 03/27/1999 Outpatient Historical [facility] O[facility]-[place] [address] [place] [address] Nidia Gallardo MD [address] [facility], [facility] [address] [place] [address] Observ-suspect cond NEC (Primary Dx); Uterovaginal prolapse, unspecified; 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 Social History Tobacco Use Types Packs/Day Years Used Date Smoking Tobacco: Never Assessed Comments Unknown Sex and Gender Information Value Date Recorded Sex Assigned at Not on file 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 Gender Identity Not on file Sexual Orientation Not on file documented as of this encounter Plan of Treatment Not on file documented as of this encounter Visit Diagnoses Diagnosis Observ-suspect cond NEC- Primary Observation and evaluation for other specified suspected conditions Uterovaginal prolapse, unspecified 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 documented in this encounter Care Teams Facer Operator Relationship Specialty Start Date End Date Chinmay Mendoza MD [address] [place] [phone] PCP - General Family Practice 06/22/19 documented as of this encounter
--- OUTSIDE RECORDS SUMMARY | 2025-04-26 14:44 | XMS_ITS | Encounter Summary ---
Author Organization [facility] Address [address] [place] [address] Care Team Providers Care Industrial Automation Engineer Name Role Phone Chinmay Mendoza MD Primary Care Provider Encounter Details Date Type Department Care Team (Late st Contact Info) Description 03/08/1999 Outpatient Historical [facility] OBGYN[place] [address] [place] [address] Nidia Gallardo MD [address] 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 Gender Identity Not on file Sexual Orientation Not on file documented as of this encounter Plan of Treatment Not on file documented as of this encounter Visit Diagnoses Diagnosis Observ-suspect cond NEC- Primary Observation and evaluation for other specified suspected conditions 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 Uterovaginal prolapse, unspecified documented in this encounter Care Teams Industrial Automation Engineer Relationship Specialty Start Date End Date Chinmay Mendoza MD [address] [place] [phone] PCP - General Family Practice 06/22/19 documented as of this encounter
--- OUTSIDE RECORDS SUMMARY | 2025-04-26 14:44 | XMS_ITS | Encounter Summary ---
Author Organization [facility] Address [address] [place] [address] Care Team Providers Care Sap Bpc Architect Name Role Phone Chinmay Mendoza MD Primary Care Provider [phone] Encounter Details Date Type Department Care Team (Late st Contact Info) Description 05/10/1999 Outpatient Historical [facility]BGYN-[place] [address] [place] [phone] Nidia Gallardo MD [address] [facility] [address] [place] [address] Follow-up examination following surgery (Primary Dx); 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; Candidiasis of vulva and vagina Social History Tobacco Use Types Packs/Day Years Used Date Smoking Tobacco: Never Assessed Comments Unknown Sex and Gender Information Value Date Recorded Sex Assigned at Not on file 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
--- OUTSIDE RECORDS SUMMARY | 2025-04-26 14:44 | XMS_ITS | Encounter Summary ---
Author Organization [facility] Address [address] [place] [address] Care Team Providers Care Business Executive Name Role Phone Chinmay Mendoza MD Primary Care Provider Encounter Details Date Type Department Care Team (Latest Contact Info) Description 02/12/[address] 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
--- OUTSIDE RECORDS SUMMARY | 2025-04-26 14:44 | XMS_ITS | Encounter Summary ---
Author Organization [facility] Address [address] [place] [address] Care Team Providers Care Anesthesiology Physician Name Role Phone Chinmay Mendoza MD Primary Care Provider Reason for Referral * Outpatient Services (Routine) - Closed Specialty Diagnoses / Procedures Referred By Gayatri gillette Referred To Contact Radiology Diagnoses Choledocholithiasis Abnormal findings on diagnostic imaging of liver and biliary tract Procedures US GUIDE NEEDLE PLACEMENT Florian Quintero MD [address] [phone] Phone: tel: fax: [facility] Ultrasound [address] [place] [address] Phone: tel: fax: Referral ID Status Reason Start Date Expiration Date Visits Re quested Visits Authorized [id number] Closed 06/23/2018 07/24/2019 1 1 Encounter Details Date Type Department Care Team (Late st Contact Info) Description 06/23/2018 Ancillary Orders [facility] Gastroenterology- [place] [address] 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 Procedure Note Brayan Hamlin MD - 06/23/2018 Findings are included on separately dictated percutaneous transhepatic cholangiogram report. us Florian Quintero MD US ORDERABLES Final Result documented in this encounter Visit Diagnoses Diagnosis Choledocholithiasis Calculus of bile duct without mention of cholecystitis or obstruction Abnormal findings on diagnostic imaging of liver and biliary tract Choledocholithiasis Calculus of bile duct without mention of cholecystitis or obstruction Abnormal findings on diagnostic imaging of liver and biliary tract documented in this encounter Care Teams Anesthesiology Physician Relationship Specialty Start Date End Date Chinmay Mendoza MD [address] [place] [phone] PCP - General Family Practice 06/22/19 documented as of this encounter
--- OUTSIDE RECORDS SUMMARY | 2025-04-26 14:44 | XMS_ITS | Encounter Summary ---
Author Organization [facility] Address [address] [place] [address] Care Team Providers Care Drum Sander Offbearer Name Role Phone Chinmay Mendoza MD Primary Care Provider Encounter Details Date Type Department Care Team (Latest Contact Info) Description 03/27/1999 Outpatient Historical [facility] Urology- [place] 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
--- OUTSIDE RECORDS SUMMARY | 2025-04-26 14:44 | XMS_ITS | Patient Health Record ---
Author Organization [facility] Address [address] [place] [address] Care Team Providers Care Production Associate Name Role Phone Dr Ganga Marley DO Primary Care Provider Talib Villagran Unavailable [phone] Christian Zhong Unavailable Unavailable Leonardo Gan Unavailable [phone] Migration, Provider Unavailable Unavailable Christian Zhong Unavailable [phone] Thalia Callejas Unavailable [phone] Allergies Allergen (clinical drug ingredient) Drug/Non Drug Allergy documented on EMR Reaction Allergy Type Onset Date Status Levaquin Unknown Drug Allergy Active codeine Codeine Unknown Drug Allergy Active Results Component Value Reference Range Flag Notes IP[facility] Saliva Drug Screen Reviewed date:09/22/2024 11:15:03 AM Interpretation: Performing Lab: Notes/Report: Urine Drug Screen (cup read) - [id number] Reviewed date:01/19/2025 12:09:05 PM Interpretation: Performing Lab: Notes/Report: BZO + OXY + Urine Confirmation Panel (in strument) - [id number] Reviewed date:01/26/2025 02:50:38 PM Interpretation: Performing Lab: Notes/Report: 6-Acetylmorphine 0 <6 ng/mL N This jackie t was developed and its performance characteristics determined by [facility]. It has not been cleared or approved by the U.S. Food and Drug Administration. 7-Aminoclonazepam 0 <60 ng/mL N This te st was developed and its performance characteristics determined by [facility]. It has not been cleared or approved by the U.S. Food and Drug Administration. Alprazolam 0 <60 ng/mL N This test was developed and its performance characteristics determined by [facility]. It has not been cleared or approved by the U.S. Food and Drug Administration. Amphetamine 0 <75 ng/mL N This test was developed and its performance characteristics determined by [facility]. It has not been cleared or approved by the U.S. Food and Drug Administration. aOH-Alprazolam 0 <60 ng/mL N This test was developed and its performance characteristics determined by [facility]. It has not been cleared or approved by the U.S. Food and Drug Administration. Buprenorphine 0.0 <7.5 ng/mL N This test w as developed and its performance characteristics determined by [facility]. It has not been cleared or approved by the U.S. Food and Drug Administration. Norbuprenorphine 0.0 <37.5 ng/mL N This te st was developed and its performance characteristics determined by [facility]. It has not been cleared or approved by the U.S. Food and Drug Administration. Carisoprodol 0 <75 ng/mL N This test wa s developed and its performance characteristics determined by [facility]. It has not been cleared or approved by the U.S. Food and Drug Administration. Codeine 0 <75 ng/mL N This test was developed and its performance characteristics determined by [facility]. It has not been cleared or approved by the U.S. Food and Drug Administration. EDDP 0 <75 ng/mL N This test was developed and its performance characteristics determined by [facility]. It has not been cleared or approved by the U.S. Food and Drug Administration. Fentanyl 0 <6 ng/mL N This test was developed and its performance characteristics determined by [facility]. It has not been cleared or approved by the U.S. Food and Drug Administration. Hydrocodone 0 <75 ng/mL N This test was developed and its performance characteristics determined by [facility]. It has not been cleared or approved by the U.S. Food and Drug Administration. Hydromorphone 0 <75 ng/mL N This test w as developed and its performance characteristics determined by [facility]. It has not been cleared or approved by the U.S. Food and Drug Administration. Lorazepam 0 <60 ng/mL N This test was developed and its performance characteristics determined by [facility]. It has not been cleared or approved by the U.S. Food and Drug Administration. MDMA 0 <75 ng/mL N This test was developed and its performance characteristics determined by [facility]. It has not been cleared or approved by the U.S. Food and Drug Administration. Meperidine 0.0 <37.5 ng/mL N This test was developed and its performance characteristics determined by [facility]. It has not been cleared or approved by the U.S. Food and Drug Administration. Meprobamate 0 <75 ng/mL N This test was developed and its performance characteristics determined by [facility]. It has not been cleared or approved by the U.S. Food and Drug Administration. Methamphetamine 0 <75 ng/mL N This test was developed and its performance characteristics determined by [facility]. It has not been cleared or approved by the U.S. Food and Drug Administration. Methadone 0 <75 ng/mL N This test was developed and its performance characteristics determined by [facility]. It has not been cleared or approved by the U.S. Food and Drug Administration. Morphine 0 <75 ng/mL N This test was developed and its performance characteristics determined by [facility]. It has not been cleared or approved by the U.S. Food and Drug Administration. Nordiazepam 0 <60 ng/mL N This test was developed and its performance characteristics determined by [facility]. It has not been cleared or approved by the U.S. Food and Drug Administration. Norfentanyl 0 <6 ng/mL N This test was developed and its performance characteristics determined by [facility]. It has not been cleared or approved by the U.S. Food and Drug Administration. Normeperidine 0.0 <37.5 ng/mL N This test was developed and its performance characteristics determined by [facility]. It has not been cleared or approved by the U.S. Food and Drug Administration. O-desmethyltramadol 0 <75 ng/mL N This test was developed and its performance characteristics determined by [facility]. It has not been cleared or approved by the U.S. Food and Drug Administration. Oxazepam 0 <60 ng/mL N This test was developed and its performance characteristics determined by [facility]. It has not been cleared or approved by the U.S. Food and Drug Administration. Oxycodone 1341.8 <37.5 ng/mL H This test was developed and its performance characteristics determined by [facility]. It has not been cleared or approved by the U.S. Food and Drug Administration. Oxymorphone 0 <75 ng/mL N This test was developed and its performance characteristics determined by [facility]. It has not been cleared or approved by the U.S. Food and Drug Administration. Phencyclidine 0.0 <7.5 ng/mL N This test w as developed and its performance characteristics determined by [facility]. It has not been cleared or approved by the U.S. Food and Drug Administration. Tapentadol 0.0 <37.5 ng/mL N This test was developed and its performance characteristics determined by [facility]. It has not been cleared or approved by the U.S. Food and Drug Administration. Temazepam 0 <60 ng/mL N This test was developed and its performance characteristics determined by [facility]. It has not been cleared or approved by the U.S. Food and Drug Administration. Tramadol 0 <75 ng/mL N This test was developed and its performance characteristics determined by [facility]. It has not been cleared or approved by the U.S. Food and Drug Administration. Norhydrocodone 0 <75 ng/mL N This test was developed and its performance characteristics determined by [facility]. It has not been cleared or approved by the U.S. Food and Drug Administration. Noroxycodone >2500 <38 ng/mL > This test wa s developed and its performance characteristics determined by [facility]. It has not been cleared or approved by the U.S. Food and Drug Administration. Pregabalin 6077 <225 ng/mL H This test was developed and its performance characteristics determined by [facility]. It has not been cleared or approved by the U.S. Food and Drug Administration. Gabapentin 0 <225 ng/mL N This test was developed and its performance characteristics determined by [facility]. It has not been cleared or approved by the U.S. Food and Drug Administration. Benzoylecgonine 0.0 <37.5 ng/mL N This jackie t was developed and its performance characteristics determined by [facility]. It has not been cleared or approved by the U.S. Food and Drug Administration. 4-Hydroxy Xylazine 0 <25 ng/mL N This t est was developed and its performance characteristics determined by [facility]. It has not been cleared or approved by the U.S. Food and Drug Administration. Glucometer WBG--[id number] Reviewed date:06/21/2024 01:52:41 PM Interpretation: Performing Lab: Notes/Report: Glucometer WBG 124 65-110 MG/DL HI Asymptom atic~Meter: [id number]~Wireless Sales Consultant: [id number] KRISTI STEELE Glucometer WBG--[id number] Reviewed date:09/22/2024 05:11:15 PM Interpretation: Performing Lab: Notes/Report: Glucometer WBG 146 65-110 MG/DL HI Asymptom atic~Meter: [id number]~Wireless Sales Consultant: [id number] TANVI PATINO Tox Results Reviewed date:01/26/2025 03:30:57 PM Interpretation: Performing Lab: Notes/Report: Reason For Referral No Information Medications Medication SIG (Take, Route, Frequency, Duration) Notes Start Date End Date Status Eye Multivit (lutein-zeaxan) *Reorder from [facility] for eRx and Interaction Alerts* Active pantoprazole *Reorder from [facility] for eRx and Interaction Alerts* Not-Taking Estradiol 0.1 MG/GM Cream as directed Vaginal Active Oxygen - Home Use 2 L NC PRN A ctive cholecalciferol (vitamin D3) *Reorder from [facility] for eRx and Interaction Alerts* Active Betamethasone Dipropionate *Pick strength-form from [facility] for eRX* Not-Taking Ondansetron *Pick strength-form from [facility] for eRX* Not-Taking Atenolol 25 MG Tablet 1 tablet Orally Once a day Unknown Flonase Allergy Relief 50 MCG/ACT Suspension 1 spray in each nostril Nasally Once a day Active Aspirin EC 81 MG Tablet Delayed Release 1 tablet Orally Once a day Unknown Ferrous Sulfate *Pick strength-form from [facility] for eRX* Active Famotidine *Pick strength-form from [facility] for eRX* Active Acetaminophen 325 MG Capsule 2 capsules prn Orally every 6 hrs Unknown Atenolol *Pick strength-form from [facility] for eRX* Not-Taking Aspirin *Pick strength-form from [facility] for eRX* Not-Taking Omeprazole 20 MG Capsule Delayed Release 1 capsule 30 minutes before morning meal Orally Once a day Active Albuterol Sulfate HFA 108 (90 Base) MCG/ACT Aerosol Solution 2 puffs prn Inhalation every 6 hours Active NovoLIN N FlexPen 100 UNIT/ML Suspension Pen-injector as directed Subcutaneous Active Vitamin C *Pick strength-form from [facility] for eRX* Not-Taking Vitamin B 12 500 MCG Tablet 2 tablet Orally Once a day Active tramadol *Reorder from [facility] for eRx and Interaction Alerts* Not-Taking rOPINIRole HCl 1 MG Tablet 1 tablet 1 to 3 hours before bedtime Orally Once a day Active Zinc Citrate *Pick strength-form from [facility] for eRX* Not-Taking Vitamin E *Pick strength-form from [facility] for eRX* Not-Taking Vitamin D3 25 MCG (1000 UT) Tablet 1 tablet Orally Once a day Active Naloxone *Reorder from [facility] for eRx and Interaction Alerts* Not-Taking traMADol HCl 50 MG Tablet 1 tablet as needed Orally Once a day Unknown Loratadine 10 MG Tablet 1 tablet Orally Once a day Active Lantus SoloStar 100 UNIT/ML Solution Pen-injector as directed Subcutaneous Active Ipratropium-Albuterol 0.5-2.5 (3) MG/3ML Solution 3 mL as needed Inhalation every 6 hrs Active Acetaminophen *Pick strength-form from [facility] for eRX* Active Pregabalin 200 MG Capsule 1 capsule 1 to 3 hours before bedtime Orally Once a day Active Potassium Chloride ER 10 MEQ Tablet Extended Release 1 tablet with food Orally Twice a day Active NIFEdipine ER 30 MG Tablet Extended Release 24 Hour 1 tablet on an empty stomach Orally Once a day Active Pentoxifylline ER 400 MG Tablet Extended Release 1 tablet with meals Orally Twice a day Not-Taking Vision Formula 2 - Capsule as directed Orally Unknown Trelegy Ellipta 200-62.5-25 MCG/ACT Aerosol Powder Breath Activated 1 puff Inhalation Once a day Unknown Indomethacin 50 MG Capsule 1 capsule with food or milk Orally Twice a day Not-Taking HYDROcodone-Acetamino phen 5-325 MG Tablet 1 tablet as needed Orally every 6 hrs Not-Taking glipiZIDE 10 MG Tablet 1 tablet 30 minutes before breakfast Orally Once a day Active Furosemide 40 MG Tablet 1 tablet Orally Once a day Active Ondansetron HCl 4 MG Tablet 1 tablet Orally every 8 hours Unknown Narcan 4 MG/0.1ML Liquid as directed Nasally Unknown Cyanocobalamin 100 MCG Tablet as directed Orally Unknown Betamethasone Dipropionate 0.05 % Ointment 1 application Externally Once a day Unknown Pregabalin 100 MG Capsule 1 capsule Orally Once a day in the morning Unknown Pentoxifylline ER 400 MG Tablet Extended Release 1 tablet with meals Orally Twice a day Unknown Social History Tobacco Use: Social History Observation Description Date Details (start date - stop date) Never Smoker NA - NA Social History Drugs/Alcohol: Social Info Question Answer Notes Alcohol Screen (Audit-C) Did you have a drink containing alcohol in the past year? No Points 0 Interpretation Negative Tobacco Use: Social Info Question Answer Notes Tobacco Control (Standard) Tobacco use: Nonsmoker Additional Details Category Social Info Options Details Drugs/Alcohol: Do you drink alcohol? 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) Active confirmed Problem Age-related osteoporosis (970221337) Age-related osteoporosis without current pathological fracture (M81.0) Active confirmed Problem Late effect of medical and surgical care complication (495008866) Pain due to internal orthopedic prosthetic devices, implants and grafts, sequela (T84.84XS) Active confirmed Problem Long-term current use of insulin (614653831) meterman (current) use of insulin (Z79.4) Active confirmed Problem Artificial knee joint present (299548004575) Presence of left artificial knee joint (Z96.652) Active confirmed Problem Cervical disc disorder (105788444) DDD (degenerative disc disease), cervical (M50.30) Active confirmed Problem C-reactive protein abnormal (059906573) CRP elevated (R79.82) Active confirmed Problem Post-laminectomy syndrome (89488654) Failed back syndrome of lumbar spine (M96.1) Active confirmed Problem Morbid obesity (256205783) Morbid obesity (E66.01) Active confirmed Problem Gastric ulcer without hemorrhage, without perforation AND without obstruction (34906037) Gastric ulcer without hemorrhage or perforation, unspecified chronicity (K25.9) Active confirmed Problem Chronic obstructive pulmonary disease (14729986) COPD, mild (J44.9) Active confirmed Problem Abnormal gait (03999773) Abnormality of gait and mobility (R26.9) Active confirmed Problem Angiodysplasia of duodenum (486309906) 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) Active confirmed Problem Cervical fusion syndrome (5380523) Cervical fusion syndrome (Q76.1) Active confirmed Problem Localized, primary osteoarthritis of the shoulder region (656896894) Osteoarthritis of shoulder, unspecified laterality, unspecified osteoarthritis type (M19.019) Active confirmed Problem Fracture of vertebra due to osteoporosis with routine healing (M80.08XD) Active confirmed Problem Chronic multifocal osteomyelitis of left femur (M86.352) Active confirmed Vital Signs Height-cm 165.10 cm 01/19/2025 Weight-kg 92.53 kg 11/22/2024 Height 65.00 in 01/19/2025 Weight 204 lbs 11/22/2024 BMI 33.94 kg/m2 11/22/2024 Encounters Encounter Location Date Provider Diagnosis [facility] [address] [place] [address] 06/18/2024 Abodutamerain Malik GAVE (gastric antral vascular ectasia) K31.819 [facility] [address] [address] 09/21/2024 Abodunrin Malik GAVE (gastric antral vascular ectasia) K31.819 [facility] [address] [address] 07/01/2024 Thalia Callejas [facility] [place] [address] [place] [address] 09/15/2024 Talib Galicia Chronic pain syndrome G89.4 ; DDD (degenerative disc disease), cervical M50.30 ; Osteoarthritis of shoulder, unspecified laterality, unspecified osteoarthritis type M19.019 ; Fracture of vertebra due to osteoporosis with routine healing M80.08XD and meterman (current) use of opiate analgesic Z79.891 [facility] [address] [place] [address] 11/22/2024 Talib Galicia Chronic pain syndrome G89.4 ; DDD (degenerative disc disease), cervical M50.30 ; Fracture of vertebra due to osteoporosis with routine healing M80.08XD ; Arthritis of right shoulder M19.011 and meterman (current) use of opiate analgesic Z79.891 [facility] [address] [address] 01/19/2025 Talib Galicia Chronic pain syndrome G89.4 ; DDD (degenerative disc disease), cervical M50.30 ; Fracture of vertebra due to osteoporosis with routine healing M80.08XD ; Arthritis of right shoulder M19.011 and [facility] (current) use of opiate analgesic Z79.891 [facility] 0 0 07/31/2024 Provider Migration [facility] 0 0 08/01/2024 Provider Migration [facility] [address] [place] [address] 04/28/2024 [facility] [address] [place] [address] 06/22/2024 [facility] GAVE (gastric antral vascular ectasia) K31.819 [facility] [address] [place] [address] 08/02/2024 [facility] [address] [address] 08/23/2024 Talib Galicia [facility] [address] [address] 09/01/2024 Talib Galicia Chronic pain syndrome G89.4 [facility] [address] [place] [address] 10/18/2024 Christian Zhong [facility] [address] [address] 11/15/2024 Talib Galicia Assessments Encounter Date Diagnosis (ICD Code) Assessment Notes Treatment Notes Treatment Clinical Notes Section Notes 06/18/2024 GAVE (gastric antral vascular ectasia) (ICD-10 - K31.819) Repeat EGD today for repeat GAVE treatment. 09/15/2024 Chronic pain syndrome (ICD-10 - G89.4) I had a nice visit with the patient today regarding her chronic pain issues. She says she is doing alright and the pain medication works for her when she takes some Tylenol with it so we discussed just switching her over to the Percocet and she figured this was a reasonable option. We will try that and cut down the quantity because she doesn't take 3 per day every day. We will see her back in a couple of months. 09/21/2024 GAVE (gastric antral vascular ectasia) (ICD-10 - K31.819) EGD today. 11/22/2024 Chronic pain syndrome (ICD-10 - G89.4) I had a nice visit with the patient today regarding her chronic pain issues. Overall, she seems to be doing about the same. It sounds like she has sometimes when the Percocet doesn't work as well as the oxycodone used to but after further discussion it was clear she was taking 1000mg of Tylenol at times with the oxycodone, so certainly this would account for some of the change there. She's going to try and take a Tylenol if necessary at times along with the Percocet, which would be fine at her current dosage. Otherwise we will continue these unchanged for the next couple of months and proceed accordingly. 11/22/2024 DDD (degenerative disc disease), cervical (ICD-10 - M50.30) 01/19/2025 Chronic pain syndrome (ICD-10 - G89.4) I had a nice visit with the patient today regarding her chronic pain issues. OVerall, she seems to be doing about the same. 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 She is supposed to have some results today to know a little bit further so hopefully they will be able to assist with her joint pain and controlling that.She is tolerating the medications well and she continues to use them 2-3 times a day and thinks everything is adequate from that standpoint. For now, we will continue her medications unchanged and proceed accordingly. 09/15/2024 DDD (degenerative disc disease), cervical (ICD-10 - M50.30) 06/22/2024 GAVE (gastric antral vascular ectasia) (ICD-10 - K31.819) 01/19/2025 DDD (degenerative disc disease), cervical (ICD-10 - M50.30) 11/22/2024 Fracture of vertebra due to osteoporosis with routine healing (ICD-10 - M80.08XD) 09/01/2024 Chronic pain syndrome (ICD-10 - G89.4) 09/15/2024 Osteoarthritis of shoulder, unspecified laterality, unspecified osteoarthritis type (ICD-10 - M19.019) 09/15/2024 Fracture of vertebra due to osteoporosis with routine healing (ICD-10 - M80.08XD) 01/19/2025 Fracture of vertebra due to osteoporosis with routine healing (ICD-10 - M80.08XD) 11/22/2024 Arthritis of right shoulder (ICD-10 - M19.011) 09/15/2024 [facility] (current) use of opiate analgesic (ICD-10 - Z79.891) 01/19/2025 Arthritis of right shoulder (ICD-10 - M19.011) 11/22/2024 meterman (current) use of opiate analgesic (ICD-10 - Z79.891) 01/19/2025 [facility] (current) use of opiate analgesic (ICD-10 - Z79.891) RECOMMEND URINE TESTING TODAY Urine drug screening will be performed today to monitor compliance with opioid therapy or to serve as a baseline screen for a patient who may be a candidate for opioid therapy in the future, pending UDS results. We will monitor with in-office testing (rapid testing) today and review the results prior to dispensing prescription. All positive results will be sent for quantitative analysis to ensure accuracy and quantify amounts. Any expected positive results that return negative will also be sent for quantitative analysis. Any questionable read or any medication we cannot test for in the office confidently will be sent for quantitative analysis, as well. Patient has been made aware of this policy and agrees to abide by our urine testing policy. 09/15/2024 Other Micky Thrasher am scribing for Talib Galicia. Talib Thrasher, personally performed the services described in this documentation, as scribed by Micky Palomares, and it is both accurate and complete. 11/22/2024 Micky Quiroga am scribing for Dr. Talib Galicia. I, Dr. Talib Galicia, personally performed the services described in this documentation, as scribed by Micky Palomares, and it is both accurate and complete. 01/19/2025 Other I, Micky Palomares, am scribing for Dr. Talib Galicia. I, Dr. Talib Galicia, personally performed the services described in this documentation, as scribed by Micky Palomares, and it is both accurate and complete. Plan Of Treatment Pending Test Test Name Order Date Lumbosacral Spine AP/Lat-[id number] 3 MRI Lumbar Spine w/o [id number] 08/21/20 23 MRI Lumbar Spine w/o Cont-[id number] 08/21/20 23 I[facility] Lumbosacral Spine AP/Lat - [id number] 09/06 Future Test Test Name Order Date EGD, Upper GI Diagnostic-[id number] 4 EGD, Upper GI Diagnostic-[id number] 4 EGD, Upper GI Diagnostic-[id number] 5 Insurance Providers Payer Name Payer Address Payer Phone Subscriber Number Group Number Insured Name Patient Relationship to Insured Coverage Start Date Coverage End Date [employer] Medicare Replacement [address] [address] [place] [address] [id number] Aga Dalton Self - patient is the insured Medical (General) History Medical History History ICD Code diabetes copd gerd neuropathy hypertension hyperlipidemia chronic pain nausea pancreatitis covid GAVE Watermelon stomach measles mumps Chicken Pox whooping cough (pertussis) Pneumonia anemia diabetes arthritis Back Trouble High Blood Pressure hemorrhoids bronchitis cancer Surgical History Surgery Date(Month/Year) appendectomy 1959 right ear surgery- masatoid 1970 cholecystectomy 1972 tubal ligastion 1972 back surgery 1983 knee surgery x 3 2012 [place] right hand 1996 bladder sling 1999 left breast biopsy 2003 right hip replacement 2004 left hip replacement 2004 back surgery 2004 Back surgeries x 3 Appendectomy Since 1958 Ear surgery Since 1969 Gallbladder removal Since 1972 Hysterectomy Since 1972 right carpal tunnel Since 1993 Bladder surgery Since 1998 Breast biopsy Since 2003 Left Hip Replacement Since 2003 right hip replacement Since 2003 Skin cancer surgery Since 2003 left knee replacement Since 2011 Finger amputation Since 2022 Hospitalization History Reason Date(Month/Year) see surgery list
--- OUTSIDE RECORDS SUMMARY | 2025-04-26 14:44 | XMS_ITS | Encounter Summary ---
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
--- OUTSIDE RECORDS SUMMARY | 2025-04-26 14:44 | XMS_ITS | Encounter Summary ---
Author Organization [facility] Address [address] [place] [address] Care Team Providers Care Plastics Fabricator Name Role Phone Chinmay Mendoza MD Primary Care Provider Encounter Details Date Type Department Care Team (Late st Contact Info) Description 05/28/1999 Outpatient Historical [facility] [address] [place] [phone] Nidia Gallardo MD [address] [facility], [facility] [address] [place] [address] Follow-up examination following surgery (Primary Dx); 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 Social History Tobacco Use Types Packs/Day Years Used Date Smoking Tobacco: Never Assessed Comments Unknown Sex and Gender Information Value Date Recorded Sex Assigned at Not on file 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
--- OUTSIDE RECORDS SUMMARY | 2025-04-26 14:44 | XMS_ITS | Encounter Summary ---
Author Organization [facility] Address [address] [place] [address] Care Team Providers Care Radiology Therapist Name Role Phone Chinmay Mendoza MD Primary Care Provider Encounter Details Date Type Department Care Team (Late st Contact Info) Description 06/23/2018 Ancillary Orders [facility] Imaging Services [address] 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
--- OUTSIDE RECORDS SUMMARY | 2025-04-26 14:44 | XMS_ITS | Encounter Summary ---
Author Organization [facility] Address [address] [place] [address] Care Team Providers Care Salvationist Name Role Phone Chinmay Mendoza MD Primary Care Provider [phone] Encounter Details Date Type Department Care Team (Latest Contact Info) Description 02/19/1999 Outpatient Historical [facility] [address] [facility] [address] [place] [address] Jacquelyn Brody MD NO ADDRESS ON FILE Family history of malignant neoplasm of breast (Primary Dx) Social History Tobacco Use Types Packs/Day Years Used Date Smoking Tobacco: Never Assessed Comments Unknown Sex and Gender Information Value Date Recorded Sex Assigned at Not on file 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
--- OUTSIDE RECORDS SUMMARY | 2025-04-26 14:44 | XMS_ITS | Encounter Summary ---
Author Organization [facility] Address [address] [place] [address] Care Team Providers Care Environmental Sampler Name Role Phone Chinmay Mendoza MD Primary Care Provider [phone] Encounter Details Date Type Department Care Team (Late st Contact Info) Description 02/11/2020 Ancillary Orders [facility] Medicine [address] [address] Jasmyn Atkins FNP NO ADDRESS ON FILE Acute hip pain, bilateral Social History Tobacco Use Types Packs/Day Years Used Date Smoking Tobacco: Never Smokeless Tobacco: Never Alcohol Use Standard Drinks/Week Comments No 0 (1 standard drink = 0.6 oz pur e alcohol) Comments No Sex and Gender Information Value Date Recorded Sex Assigned at Not on file 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 No / Unsure 02/08/2020 1:01 PM CDT documented as of this encounter Plan of Treatment Not on file documented as of this encounter Results * XR HIPS BILATERAL 2 VIEWS (02/11/2020 7:29 AM CDT) Anatomical Region Laterality Modality Lower Extremity Computed Radiogr aphy 02/11/2020 7:30 AM CDT Impressions 02/11/2020 7:43 AM CDT IMPRESSION: Please see below. Exam: XR HIPS BILATERAL 2 VIEWS Date/Time of Exam: 02/11/2020 7:29 AM Reason For Exam: See Diagnosis. Diagnosis: Acute hip pain, bilateral; Acute hip pain, bilateral. 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 No apparent acute osseous pathology of imaged skeleton. 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 IMPRESSION: No apparent acute pathology. Narrative Procedure Note Janell Chester MD - 02/11/2020 IMPRESSION: Please see below. Exam: XR HIPS BILATERAL 2 VIEWS Date/Time of Exam: 02/11/2020 7:29 AM Reason For Exam: See Diagnosis. Diagnosis: Acute hip pain, bilateral; Acute hip pain, bilateral. 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 No apparent acute osseous pathology of imaged skeleton. 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 IMPRESSION: No apparent acute pathology. Jasmyn Atkins MAKEUP ARTIST DIAGNOSTIC IMAGING ORDERAB LES Final Result documented in this encounter Visit Diagnoses Diagnosis Acute hip pain, bilateral Acute hip pain, bilateral documented in this encounter Additional Health Concerns Assessment Noted Time PHQ-9 Depression Total Score: 2 02/08/20 20 4:00 PM CDT documented as of this encounter Care Teams Environmental Sampler Relationship Specialty Start Date End Date Chinmay Mendoza MD [facility] [address] [phone] PCP - General Family Practice 06/22/19 documented as of this encounter
--- OUTSIDE RECORDS SUMMARY | 2025-04-26 14:45 | XMS_ITS | Encounter Summary ---
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 (Primary Dx) Social History Tobacco Use Types Packs/Day Years Used Date Smoking Tobacco: Never Assessed Comments Unknown Sex and Gender Information Value Date Recorded Sex Assigned at Not on file 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
--- OUTSIDE RECORDS SUMMARY | 2025-04-26 14:45 | XMS_ITS | Encounter Summary ---
Author Organization [facility] Address [address] [place] [address] Care Team Providers Care Brief Writer Name Role Phone Chinmay Mendoza MD Primary Care Provider [phone] Encounter Details Date Type Department Care Team (Late st Contact Info) Description 02/22/2000 Outpatient Historical [facility] [address] 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
--- OUTSIDE RECORDS SUMMARY | 2025-04-26 14:45 | XMS_ITS | Encounter Summary ---
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 (Primary Dx) Social History Tobacco Use Types Packs/Day Years Used Date Smoking Tobacco: Never Assessed Comments Unknown Sex and Gender Information Value Date Recorded Sex Assigned at Not on file Legal Sex Female 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
--- OUTSIDE RECORDS SUMMARY | 2025-04-26 14:45 | XMS_ITS | Clinical Summary ---
Author Organization [facility] Zeenat Address [address] [address] Care Team Providers Care Fire Prevention Chief Name Role Phone Chinmay Mendoza MD Primary Care Provider [phone] Allergies Active Allergy Reactions Criticality Noted Date Comments Codeine Nausea and Vomiting Low 03/26/2018 Levofloxacin Seizure High 03/26/2018 Medications vit A/C/E/zinc/selen ium/copper (VISION FORMULA ORAL) Take by mouth. Activ e ferrous sulfate (Iron) 325 mg (65 mg iron) Capsule, Sustained Release Take 325 mg by mouth. Active cyanocobalamin, vitamin B-12, (VITAMIN B-12) 5,000 mcg Tablet, Sublingual Place under tongue. Active cholecalciferol, vitamin D3, (VITAMIN D3 ORAL) Take by mouth. Activ e pravastatin (PRAVACHOL) 10 mg tabletIndication s:Type 2 diabetes mellitus with diabetic polyneuropathy, with long-term current use of insulin ([facility]),Dyslip idemia, goal LDL below 70 Take 1 Tablet (10 mg) by mouth daily at bedtime. 90 Tablet 3 03/13/20 20 Active budesonide-formo teroL (SYMBICORT) 160-4.5 mcg/actuation HFA Aerosol InhalerIndicatio ns:Chronic obstructive pulmonary disease, unspecified COPD type (CMS/HCC),Shortn ess of breath at rest Take 2 Puffs by inhalation 2 times daily. 12 Gram 3 03/13/20 20 Active fluticasone propionate (FLONASE) 50 mcg/spray [place], Suspension nasal inhalerIndicatio ns:Acute maxillary sinusitis, recurrence not specified Administer 1 [place] in each nostril 2 times daily. 16 Gram 2 03/13/20 20 Active HYDROcodone-acet aminophen (NORCO) 5-325 mg tabletIndication s:Chronic pain syndrome,Fibromy algia,History of left knee replacement Take 1 Tablet by mouth 4 times daily as needed for Pain. 30 day supply Max Daily Amount: 4 Tablets 60 Tablet 03/17/20 20 Active Insulin Syringe-Needle U-100 0.3 mL 31 gauge x 5/16 Syringe Test twice daily 100 Each 3 06/19/20 20 Active Nebulizer & Compressor For Neb DeviceIndication s:Chronic obstructive pulmonary disease, unspecified COPD type (CMS/HCC) For PRN breathing treatments for shortness of breath 1 Each 08/24/20 20 Active ipratropium-albu teroL (DUONEB) 0.5 mg-3 mg(2.5 mg base)/3 mL Solution for NebulizationIndi cations:Chronic obstructive pulmonary disease, unspecified COPD type (CMS/HCC) Take 3 mL by inhalation every 4 hours as needed for Shortness of Breath. 90 Each 08/24/20 20 Active Nebulizer Accessories KitIndications:C hronic obstructive pulmonary disease, unspecified COPD type (CMS/HCC) For breathing treatments every 4 hours duoneb as needed for shortness of breath 1 Kit 08/24/20 Active albuterol HFA 90 mcg inhaler Take 2 Puffs by inhalation. 09/03/20 20 Active loratadine (CLARITIN) 10 mg tablet Take 10 mg by mouth. Active Iron 18 mg Tablet Take 1 Tablet by mouth. Active furosemide (LASIX) 20 mg tablet Take 20 mg by mouth 2 times daily. Active lisinopriL (PRINIVIL) 10 mg tabletIndication s:Essential hypertension Take 1 Tablet (10 mg) by mouth daily. 90 Tablet 3 10/02/20 20 Active glipiZIDE (GLUCOTROL) 10 mg tabletIndication s:Type 2 diabetes mellitus with diabetic polyneuropathy, with long-term current use of insulin (CMS/HCC) Take 1 Tablet (10 mg) by mouth 2 times daily with meals. 180 Tablet 3 10/02/20 20 Active rOPINIRole (REQUIP) 1 mg tabletIndication s:Restless leg syndrome TAKE 1 TABLET EVERY DAY 90 Tablet 3 10/02/20 20 Active insulin glargine (Lantus Solostar U-100 Insulin) 100 unit/mL pen syringeIndicatio ns:Type 2 diabetes mellitus with diabetic polyneuropathy, with long-term current use of insulin ([facility]) Inject 24 Units by subcutaneous injection daily at bedtime. 15 mL 6 10/02/20 20 Active insulin regular (NovoLIN R Regular U-100 Insuln) 100 unit/mL vialIndications: Type 2 diabetes mellitus with diabetic polyneuropathy, with long-term current use of insulin ([facility]) INJECT 10 TO 15 UNITS SUBCUTANEOUSLY TWICE DAILY NEEDED FOR HIGH SUGAR DIRECTED. DISCARD VIAL 42 DAYS AFTER OPENING 30 mL 2 10/02/20 20 Active traMADoL (ULTRAM) 50 mg tabletIndication s:Fibromyalgia,C hronic pain syndrome,General ized abdominal pain Take 1 Tablet (50 mg) by mouth every 6 hours as needed for Pain. 60 Tablet 2 10/03/20 20 Active pregabalin (LYRICA) 100 mg Capsule Take 1 Capsule (100 mg) by mouth daily in the morning. 90 Capsule 1 11/07/19 21 Active ondansetron (Zofran ODT) 4 mg Tablet, Rapid DissolveIndicati ons:Bilious vomiting with nausea Take 1 Tablet (4 mg) by mouth every 8 hours as needed for Nausea/Emesis. Dissolve tablet on top of tongue, then swallow with saliva. 30 Tablet 1 12/07/19 21 Active Insulin Malo, Disposable, (Lite Touch Insulin Pen Malo) 31 gauge x 5/16 Needle Daily with insulin 100 Each 2 01/11/20 21 Active blood sugar diagnostic (True Metrix Glucose Test Strip) StripIndications :Type 2 diabetes mellitus with diabetic polyneuropathy, with long-term current use of insulin ([facility]) CHECK BLOOD SUGARS TWICE A DAY AND NEEDED. 300 Strip 2 01/11/20 21 Active pregabalin (LYRICA) 200 mg Capsule Take 1 tablet by mouth once daily in the evening (in addition to 100 mg in the morning) 90 Capsule 1 01/12/20 21 Active Additional Information Patient taking differently: 100 mg, Take 1 tablet by mouth once daily in the evening (in addition to 100 mg in the morning), Reported on 03/21/2021 Blood-Glucose MeterIndications :Type 2 diabetes mellitus with diabetic polyneuropathy, with long-term current use of insulin ([facility]) Check blood sugars twice a day and as needed. DX: E11.42 uses insulin 100 Each 2 01/20/20 21 Active famotidine (PEPCID) 20 mg tabletIndication s:RUQ abdominal pain,Bilious vomiting with nausea Take 1 Tablet (20 mg) by mouth 2 times daily. 180 Tablet 1 03/15/20 21 Active omeprazole (PriLOSEC) 20 mg Capsule, Delayed Release(E.C.)Ind ications:RUQ abdominal pain,Bilious vomiting with nausea Take 1 Capsule (20 mg) by mouth 2 times daily before meals. 180 Capsule 1 03/15/20 21 Active potassium chloride (MICRO-K EXTENCAPS) 10 mEq Extended Release capsule Take 2 Capsules (20 mEq) by mouth daily. 180 Capsule 3 03/15/20 21 Active oxygen home deliveryIndicati ons:Severe hypoxemia Home Oxygen Concentrator yes at 2 L/M Rest, 2 L/M Activity, - L/M Sleep, Delivery Device: Nasal Cannula Portability: yes, 2 L/M Rest, 2 L/M Activity, May provide device best for patient needs(E system,home fill, conserving device) Length of Need: 99 months 1 Each 03/15/20 21 Active overnight pulse oximetryIndicati ons:Severe hypoxemia Overnight pulse oximetry: One time overnight pulse oximetry test on room air or oxygen liter flow: Room air 1 Each 03/15/20 21 Active naloxone (NARCAN) 4 mg/spray [place], Non-Aerosol EMERGENCY USE ONLY: Administer 1 spray (4 mg) in one nostril one time. May repeat in alternating nostrils every 2-3 min until responsive or EMS arrives. 2 Each 3 03/16/20 21 Active acetaminophen (TYLENOL) 325 mg tablet Take 2 Tablets (650 mg) by mouth every 6 hours as needed for Other (See Comment) (See admin instructions). 03/23/20 21 Active aspirin (ECOTRIN EC) 81 mg Tablet, Delayed Release (E.C.) Take 1 Tablet (81 mg) by mouth daily. 03/24/20 21 Active amLODIPine (NORVASC) 5 mg tablet Take 1 Tablet (5 mg) by mouth daily. 30 Tablet 03/24/20 21 Active oxygen home delivery Home Oxygen Concentrator yes at 0 L/M Rest, 2 L/M Activity, 0 L/M Sleep, Delivery Device: Nasal Cannula Portability: yes, 0 L/M Rest, 2 L/M Activity, May provide device best for patient needs(E system,home fill, conserving device) Length of Need: 99 months 1 Each 03/23/20 21 Active Insulin Syringe-Needle U-100 (Droplet Insulin Syringe) 1 mL 30 gauge x 1/2 Syringe USE TWICE DAILY 200 Each 04/04/20 21 Active Active Problems Problem Noted Date Diagnosed Date Chest pain 03/21/2021 Dyspnea on exertion 03/21/2021 Leg swelling 03/21/2021 Pain of finger of left hand 03/21/2021 Left-sided chest wall pain 03/21/2021 Respiratory failure 03/16/2021 Heart palpitations 11/24/2020 Other primary thrombocytopenia 09/10/2020 Vitamin D deficiency 07/13/2020 Vitamin B12 deficiency (non anemic) 07/13/2020 Dyslipidemia, goal LDL below 70 03/13/2020 Chronic pain of both hips 03/13/2020 Chronic diarrhea 03/13/2020 External hemorrhoids 03/13/2020 COPD 02/08/2020 Bilateral hand pain 01/05/2019 Knee instability, left 01/05/2019 Decreased ambulation status 01/05/2019 Morbid obesity with BMI of 45.0-49.9, adult 07/07 Overview (07/28/2018): Per Ka[facility] DOS 10. Type 2 diabetes mellitus wit h diabetic polyneuropathy, with long-term current use of insulin 03/26/2018 Essential hypertension 03/26/2018 Chronic GERD 03/26/2018 Peripheral edema 03/26/2018 Venous stasis dermatitis of left lower extremity 03/26/2018 History of left knee replacement 03/26/2018 Iron deficiency 03/26/2018 Fibromyalgia 03/26/2018 Chronic pain syndrome 03/26/2018 Immunizations Immunization Administration Dates Next Due (PNEUMOVAX 23)(50 YRS UP) PN EUMOCOCCAL POLYSACCHARIDE (PPV23) 0.5 ML, IM 03/26/2018 (PREVNAR 13)(6 WKS UP) PNEUM OCOCCAL CONJUGATE (PCV13) 0.5 ML, IM 07/15/2019 INFLUENZA VACCINE HIGH DOSE QUADRIVALENT 65 YR U P PF IM 07/13/2020 Influenza Vaccine High Dose 65+ Yrs IM 9 Family History Medical History Relation Name Comments Heart Disease Father Diabetes Mother Hypertension Mother Stroke Mother Colon Cancer Neg Hx Relation Name Status Comments Father Mother Social History Tobacco Use Types Packs/Day Years Used Date Smoking Tobacco: Never Smokeless Tobacco: Never Alcohol Use Standard Drinks/Week Comments No 0 (1 standard drink = 0.6 oz pur e alcohol) Comments No Sex and Gender Information Value Date Recorded Sex Assigned at Not on file Legal Sex Female 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 Gender Identity Not on file Sexual Orientation Not on file Last Filed Vital Signs Vital Sign Reading Time Taken Comments Blood Pressure 128/72 03/27/2021 2:04 PM CDT Pulse 72 03/27/2021 2:04 PM CDT Temperature 36.1 C (96.9 F) 03/27/2021 2:04 PM CDT Respiratory Rate 22 03/23/2021 11:26 AM CDT Oxygen Saturation 91% 03/27/2021 2:04 PM CDT Inhaled Oxygen Concentration - - Weight 128.8 kg (284 lb) 03/23/2021 4:50 AM CDT Height 165.1 cm (5' 5 ) 03/27/2021 2:04 PM CDT Body Mass Index 47.26 03/21/2021 12:18 PM CDT Plan of Treatment Health Maintenance Due Date Last Done Comments DTAP/TDAP/TD VACCINES (1 - Tdap) 1962 ZOSTER VACCINE (1 of 2) 1993 OSTEOPOROSIS SCREENING 01/07/2008 RSV VACCINE (60+ or ) (1 - 1-dose 75+ series) 2018 DIABETES ANNUAL FOOT EXAM 03/26/2019 03/26/2018, DIABETES MICROALBUMIN ANNUAL SCREEN 07/13/2021 07/13/2020, 01/05/2019, 03/26/2018, Additional history exists DIABETES HBA1C Q 6 MONTHS 09/14/20212020, 08/26/2020, 07/13/2020, Additional history exists LDL CHOLESTEROL ANNUAL 03/15/2022 , 07/13/2020, 09/23/2019, Additional history exists DIABETES ANNUAL RETINAL EXAM 04/04/2023, 09/10/2021, 07/13/2020 Medicare Ad[place]age ([place]) Preventative Visit/Annual Wellness Visit 10/06/2024 INFLUENZA VACCINE (#1) 2025 07/13/2020, 2018 COLORECTAL SCREENING Discontinued 03/22/2002 Colorectal Cancer Screening Discontinued PNEUMOCOCCAL VACCINE 50+ YEARS Completed 07/15/2019 , 03/26/2018 FIT-DNA Q 3 years Discontinued FIT/FOBT Q 1 year Discontinued Flex Sig/CT Colonography Q 5 years Discontinued Procedures Procedure Name Priority Date/Time Associated Diagnosis Comments LIPID PANEL Routine 03/15/2021 3:35 PM CDT Pain and swelling of lower leg, left HEMOGLOBIN A1C Routine 03/15/2021 10:00 AM CDT MICROALBUMIN/CREATIN INE RATIO, RANDOM UR Routine 07/13/2020 9:37 AM CDT Essential hypertension Dyslipidemia, goal LDL below 70 Type 2 diabetes mellitus with diabetic polyneuropathy, with long-term current use of insulin ([facility]) DIABETES FOOT EXAM Routine 03/26/2018 from Last 3 Months or Most Recently Relevant to Health Maintenance Results * (ABNORMAL) LIPID PANEL (03/15/2021 3:35 PM CDT) CHOLESTEROL 151 <200 mg/dL [facility] HDL 48(L) > OR = 50 mg/dL [facility] TRIGLYCERIDE 95 <150 mg/dL [facility] LDL CALCULATED 84 mg/dL (calc) [facility] Comment: Reference range: <100 Desirable range <100 mg/dL for primary prevention; <70 mg/dL for patients with CHD or diabetic patients with > or = 2 CHD risk factors. LDL-C is now calculated using the Corin calculation, which is a validated novel method providing better accuracy than the Friedewald equation in the estimation of LDL-C. Rehan BEAUCHAMP et al. LAW. 2013;310(19): 9597-2937 (http://education.[employer]/faq/LOL346) CHOL/HDL RATIO 3.1 <5.0 (calc) [facility] TOTAL NON-HDL CHOL(LDL+VLDL) 103 <130 mg/dL (calc) [facility] Comment: For patients with diabetes plus 1 major ASCVD risk factor, treating to a non-HDL-C goal of <100 mg/dL (LDL-C of <70 mg/dL) is considered a therapeutic option. Test Performed at: [facility] [address] [facility] [place] [address] James Shaw D.O., MPH Blood 03/15/2021 3:35 PM CDT 03/16/2021 3:17 AM CDT Jasmyn Atkins [facility] CHEMISTRY ORDERABLES Final Result Performing Organization Address [facility]/ZIP Co de Phone Number [facility] [place] [address] [place] [address] * (ABNORMAL) HEMOGLOBIN A1C (03/15/2021 10:00 AM CDT) HEMOGLOBIN A1C 7.3(H) <5.7 % of total Hgb [facility] Comment: For someone without known diabetes, a hemoglobin A1c value of 6.5% or greater indicates that they may have diabetes and this should be confirmed with a follow-up test. For someone with known diabetes, a value <7% indicates that their diabetes is well controlled and a value greater than or equal to 7% indicates suboptimal control. A1c targets should be individualized based on duration of diabetes, age, comorbid conditions, and other considerations. Currently, no consensus exists regarding use of hemoglobin A1c for diagnosis of diabetes for children. Test Performed at: [facility] [address] [place] [address] James Shaw D.O., MPH 03/15/2021 10:0 0 AM CDT 03/19/2021 11:59 PM CDT Jasmyn Atkins [facility] CHEMISTRY ORDERABLES Final Result [facility] [address] [place] [place] [address] * MICROALBUMIN/CREATININE RATIO, RANDOM UR (07/13/2020 9:37 AM CDT) MICROALBUMIN, URINE <1.2 No Reference Range mg/dL 07/13/2020 9:54 PM CDT [facility] CREATININE, URINE 177.6 29.0 - 226.0 mg/dL 07/13/2020 9:54 PM CDT [facility] Comment:Reference Range vari es with fluid intake and diet. MICROALBUMIN/C REAT RATIO, UR <6.8 <25.0 mg/g 07/13/2020 9:54 PM CDT [facility] Urine URINE SPECIMEN OBTAINED BY CLEAN CATCH PROCEDURE / Unknown Collection / Unknown 07/13/2020 9:37 AM CDT 07/13/2020 8:03 PM CDT Narrative [facility] - 07/13/2020 9:54 PM CDT Condition Microalbumin/Creat ratio Normal Males <17 Normal Females <25 Microalbuminuria Males 17-299 Microalbuminuria Females 25-299 Overt proteinuria >=300 Jasmyn Atkins MANAGER UI URINE ORDERABLES Final Res ult [facility] CLIA# [id number] [address] [place] [address] * DIABETES FOOT EXAM (03/26/2018) Abstract Spg Provider HEALTH MAINTENANCE Final R esult from Last 3 Months or Most Recently Relevant to Health Maintenance Insurance [facility] Direct PLUS [id number] O Advance Directives For more information, please contact: [phone] * Full Code (Latest Code Status on File) Date Activated Date Inactivated Comments 03/21/2021 3:39 AM 03/23/2021 8:00 PM * Full Code Date Activated Date Inactivated Comments 06/23/2018 11:42 AM 06/23/2018 4:28 PM * Full Code Date Activated Date Inactivated Comments 06/23/2018 8:28 AM 06/23/2018 11:28 AM * Full Code Date Activated Date Inactivated Comments 06/23/2018 6:57 AM 06/23/2018 8:28 AM * Full Code Date Activated Date Inactivated Comments 05/20/2018 12:13 PM 05/20/2018 4:55 PM Care Teams Fire Prevention Chief Relationship Specialty Start Date End Date Chinmay Mendoza MD [address] [place] [address] NEEL Epperson [phone] PCP - General Family Practice 06/22/19
--- OUTSIDE RECORDS SUMMARY | 2025-04-26 14:45 | XMS_ITS | Encounter Summary ---
Author Organization [facility] Address [address] [place] [address] Care Team Providers Care Stack Matcher Name Role Phone Chinmay Mendoza MD Primary Care Provider Encounter Details Date Type Department Care Team (Latest Contact Info) Description 03/22/2002 Outpatient [facility] Gastroenterology[address] [place] [address] Peter Couch MD NO ADDRESS ON FILE Benign ruthie lg bowel (Primary Dx); PERS HX COLONIC POLYPS Social History Tobacco Use Types Packs/Day Years Used Date Smoking Tobacco: Never Assessed Comments Unknown Sex and Gender Information Value Date Recorded Sex Assigned at Not on file Legal 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
--- OUTSIDE RECORDS SUMMARY | 2025-04-26 14:45 | XMS_ITS | Encounter Summary ---
Author Organization [facility] Address [address] [facility] Attn: [place] [address] Care Team Providers Care Film Cleaner Name Role Phone Chinmay Mendoza MD Primary Care Provider [phone] Encounter Details Date Type Department Care Team (Late st Contact Info) Description 01/07/2000 Inpatient Historical Nidia Gallardo MD [address] [facility], [facility] [address] [place] [address] Social History Tobacco Use Types Packs/Day Years Used Date Smoking Tobacco: Never Assessed Comments Unknown Sex and Gender Information Value Date Recorded Sex Assigned at Not on file 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
--- OUTSIDE RECORDS SUMMARY | 2025-04-26 14:45 | XMS_ITS | Encounter Summary ---
Author Organization [facility] Address [address] [place] [address] Care Team Providers Care Scrum Project Manager Name Role Phone Chinmay Mendoza MD Primary Care Provider Encounter Details Date Type Department Care Team (Late st Contact Info) Description 01/07/2000 Outpatient Historical [facility] O[facility]-[place] [address] [place] [phone] Nidia Gallardo MD [address] 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
--- OUTSIDE RECORDS SUMMARY | 2025-04-26 14:45 | XMS_ITS | Encounter Summary ---
Author Organization [facility] Address [address] [facility] Attn: [place] [address] Care Team Providers Care Head Filter Press Tender Name Role Phone Chinmay Mendoza MD Primary Care Provider Encounter Details Date Type Department Care Team (Late st Contact Info) Description 12/13/1999 Outpatient Historical Fuad Mendez MD [address] [facility] [place] [address] [place] [phone] Social History Tobacco Use Types Packs/Day Years Used Date Smoking Tobacco: Never Assessed Comments Unknown Sex and Gender Information Value Date Recorded Sex Assigned at Not on file Legal Sex Female 3:37 AM RECOVERY RN Gender Identity Not on file Sexual Orientation Not on file documented as of this encounter Plan of Treatment Not on file documented as of this encounter Visit Diagnoses Not on filedocumented in this encounter Care Teams Head Filter Press Tender Relationship Specialty Start Date End Date Chinmay Mendoza MD [facility] [address] [phone] PCP - General Family Practice 06/22/19 documented as of this encounter
--- OUTSIDE RECORDS SUMMARY | 2025-04-26 14:45 | XMS_ITS | Encounter Summary ---
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 (Primary Dx) Social History Tobacco Use Types Packs/Day Years Used Date Smoking Tobacco: Never Assessed Comments Unknown Sex and Gender Information Value Date Recorded Sex Assigned at Not on file Legal Sex Female 3:37 AM CORN CUTTER Gender Identity Not on file Sexual Orientation Not on file documented as of this encounter Plan of Treatment Not on file documented as of this encounter Visit Diagnoses Diagnosis 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- Primary documented in this encounter Care Teams Indigo Mixer Relationship Specialty Start Date End Date Chinmay Mendoza MD [address] [place] [phone] PCP - General Family Practice 06/22/19 documented as of this encounter
--- OUTSIDE RECORDS SUMMARY | 2025-04-26 14:45 | XMS_ITS | Encounter Summary ---
Author Organization [facility] Address [address] [place] [address] Care Team Providers Care Collection Systems Worker Name Role Phone Chinmay Mendoza MD Primary Care Provider [phone] Encounter Details Date Type Department Care Team (Late st Contact Info) Description 02/22/2000 Outpatient Historical [facility] OBGYN-[place] [address] [place] [phone] Nidia Gallardo MD [address] [facility], [facility] [address] [place] [address] Follow-up examination following surgery (Primary Dx); 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 Social History Tobacco Use Types Packs/Day Years Used Date Smoking Tobacco: Never Assessed Comments Unknown Sex and Gender Information Value Date Recorded Sex Assigned at Not on file Legal Sex Female 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
--- OUTSIDE RECORDS SUMMARY | 2025-04-26 14:45 | XMS_ITS | Encounter Summary ---
Author Organization [facility] Address [address] [facility] Attn: [place] [address] Care Team Providers Care Office Assistant Receptionist Name Role Phone Chinmay Mendoza MD Primary Care Provider [phone] Encounter Details Date Type Department Care Team (Late st Contact Info) Description 03/22/2002 Outpatient Historical Peter Couch MD NO ADDRESS ON FILE Social History Tobacco Use Types Packs/Day Years Used Date Smoking Tobacco: Never Assessed Comments Unknown Sex and Gender Information Value Date Recorded Sex Assigned at Not on file Legal Sex Female 3:37 AM ORDER PACKER Gender Identity Not on file Sexual Orientation Not on file documented as of this encounter Plan of Treatment Not on file documented as of this encounter Visit Diagnoses Not on filedocumented in this encounter Care Teams Office Assistant Receptionist Relationship Specialty Start Date End Date Chinmay Mendoza MD [address] [place] [address] [place] [phone] PCP - General Family Practice 06/22/19 documented as of this encounter
--- OUTSIDE RECORDS SUMMARY | 2025-04-26 14:45 | XMS_ITS | Encounter Summary ---
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 (Primary Dx) Social History Tobacco Use Types Packs/Day Years Used Date Smoking Tobacco: Never Assessed Comments Unknown Sex and Gender Information Value Date Recorded Sex Assigned at Not on file 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
--- OUTSIDE RECORDS SUMMARY | 2025-04-26 14:45 | XMS_ITS | Encounter Summary ---
Author Organization [facility] Address [address] [facility] Attn: [place] [address] Care Team Providers Care Auto Porter Name Role Phone Chinmay Mendoza MD Primary Care Provider [phone] Encounter Details Date Type Department Care Team (Late st Contact Info) Description 01/22/2000 Outpatient Historical Valentin Shaw MD [address] [facility] [address] [place] [address] Social History Tobacco Use Types Packs/Day Years Used Date Smoking Tobacco: Never Assessed Comments Unknown Sex and Gender Information Value Date Recorded Sex Assigned at Not on file 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
--- OUTSIDE RECORDS SUMMARY | 2025-04-26 14:45 | XMS_ITS | Encounter Summary ---
Author Organization [facility] Address [address] [place] [address] Care Team Providers Care Fruit Bar Maker Name Role Phone Chinmay Mendoza MD Primary Care Provider Encounter Details Date Type Department Care Team (Late st Contact Info) Description 01/22/2000 Outpatient Historical [facility] OBGYN-[place] [address] [place] [phone] Nidia Gallardo MD [address] 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
--- OUTSIDE RECORDS SUMMARY | 2025-04-26 14:45 | XMS_ITS | Encounter Summary ---
Author Organization [facility] Address [address] [place] [address] Care Team Providers Care Associate Pastor Name Role Phone Chinmay Mendoza MD Primary Care Provider Encounter Details Date Type Department Care Team (Latest Contact Info) Description 12/13/1999 Outpatient Historical [facility] Urology- [address] Entrance [address], 3rd [place] [address] Fuad Mendez MD [facility] [address] [place] [address] Mixed incontinence urge and stress (male)(female) (Primary Dx) Social History Tobacco Use Types Packs/Day Years Used Date Smoking Tobacco: Never Assessed Comments Unknown Sex and Gender Information Value Date Recorded Sex Assigned at Not on file 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
--- NOTE | 2025-04-26 15:10 | W.ED.BACK ---
HPI - Back Pain/Injury General: Chief Complaint: Back Pain/Injury Stated Complaint: Back pain Time Seen by Provider: 04/26/25 14:52 History of Present Illness: 80-year-old female presents emergency room complaining of back pain began 3 weeks ago she bent over felt a popping sensation in her low back radiates over towards the right lower back. No urinary retention or fecal incontinence denies dysuria urgency or frequency no fever sweats or chills. Associated symptoms: Deny abdominal pain, chills, dysuria, fever(s) or urinary urgency Related Data Home Medications ?Medication ?Instructions ?Recorded ?Confirmed furosemide 40 mg tablet 40 mg PO DAILY 08/25/20 04/18/25 ropinirole 1 mg tablet 1 mg PO DAILY 08/25/20 04/18/25 loratadine 10 mg capsule (Allergy 10 mg PO DAILY 03/01/25 04/18/25 Relief (loratadine)) potassium chloride 10 mEq 10 meq PO BID 03/01/25 04/18/25 capsule,extended release Previous Rx's ?Medication ?Instructions ?Recorded diabetic shoes with 3 inserts #1 ea 01/01/24 cholecalciferol (vitamin D3) 125 125 mcg PO DAILY #90 caps 01/26/24 mcg (5,000 unit) capsule alcohol swabs (DropSafe Alcohol See Rx Instructions .Route 11/11/24 Prep Pads) .COMPLEX #300 swabs blood sugar diagnostic (True #300 strips 11/11/24 Metrix Glucose Test Strip) insulin syringe-needle U-100 0.3 #300 ea 11/11/24 mL 31 gauge x 5/16 (Droplet Insulin Syringe) lancets 33 gauge (TRUEplus Lancets) #300 ea 11/11/24 pen needle, diabetic 31 gauge x #100 ea 11/11/24 5/16 (Pen Needle) mycophenolate mofetil 500 mg 500 mg PO BID #60 tabs 03/14/25 tablet (CellCept) insulin glargine 100 unit/mL (3 18 unit (0.18 mL) SUBCUT DAILY #15 03/29/25 mL) subcutaneous pen (Lantus mL Solostar U-100 Insulin) nifedipine 30 mg tablet,extended 30 mg PO DAILY #90 tabs 03/29/25 release omeprazole 20 mg capsule,delayed 20 mg PO DAILY #90 caps 03/29/25 release pregabalin 200 mg capsule 200 mg PO DAILY #90 caps 03/29/25 amoxicillin 875 mg-potassium 1 tab PO BID #14 tabs 04/04/25 clavulanate 125 mg tablet azithromycin 250 mg tablet See Rx Instructions PO .COMPLEX #6 04/04/25 (Zithromax Z-Drake) tabs ipratropium 0.5 mg-albuterol 3 mg 3 ml inhalation Q4H PRN wheezing 04/04/25 (2.5 mg base)/3 mL nebulization #90 mL soln oxycodone-acetaminophen 5 mg-325 1 tab PO Q8H PRN pain 30 days #90 04/04/25 mg tablet tabs prednisone 20 mg tablet See Rx Instructions .Route 04/04/25 .COMPLEX #11 tabs insulin regular human 100 unit/mL See Rx Instructions .Route 04/25/25 injection solution (Humulin R .COMPLEX #10 mL Regular U-100 Insulin) Allergies Allergy/AdvReac Type Severity Reaction Status Date / Time codeine Allergy Intermediate Unknown Verified 04/18/25 14:49 levofloxacin Allergy ADR-Seizure Verified 04/18/25 14:49 Review of Systems Const: Denies: fever(s) or chills Card: Denies: chest pain Resp: Denies: dyspnea GI: Denies: abdominal pain : Denies: dysuria, urinary frequency or urinary urgency Musc: Reports: back pain; Denies: neck pain or extremity pain Skin/Breast: Denies: rash PFSH ED PFSH: Medical History Immunization counseling Tick bite High risk medication use CREST syndrome Scleroderma, 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 History of skin cancer Hypertension COPD (chronic obstructive pulmonary disease) Diabetes mellitus Surgical History History of appendectomy History of hip replacement, total bilateral History of hysterectomy History of bladder repair surgery Previous back surgery Social History Smoking and tobacco/nicotine status: never used tobacco/nicotine Alcohol intake: never Substance/Drug Use: never Female Reproductive History: Spontaneous abortions: No Physical Exam Const: GENERAL APPEARANCE: cooperative ORIENTATION/CONSCIOUSNESS: Yes awake, Yes oriented to person, Yes oriented to place and Yes oriented to time HENMT: COMMON NORMALS: normocephalic, atraumatic and hearing grossly normal bilaterally HEAD & SCALP: normocephalic and atraumatic Resp: COMMON NORMALS: normal respiratory effort, No retractions, No use of accessory muscles and clear to auscultation bilaterally AUSCULTATION: clear to auscultation bilaterally Cardio: COMMON NORMALS: regular rate, regular rhythm and No murmurs present (Cardio) RATE: regular rate RHYTHM: regular rhythm GI: COMMON NORMALS: Soft to palpation and No hepatosplenomegaly present AUSCULTATION: Yes normoactive bowel sounds PALPATION: Yes Soft to palpation, No Tenderness to palpation present (GI), No Guarding due to palpation present (GI) and Yes No hepatosplenomegaly present Extremity: COMMON NORMALS: normal to inspection, capillary refill normal, no clubbing, cyanosis or edema, no calf tenderness and no pedal edema Neuro: SENSORIUM/ORIENTATION: Yes oriented to person, Yes oriented to place and Yes oriented to time Skin: COMMON NORMALS: no rashes or lesions noted GENERAL SKIN EXAM: no rashes or lesions noted Course Vital Signs: Vital signs: Vital Signs Temperature 98.3 F 04/26/25 14:39 Pulse Rate 83 04/26/25 14:39 Respiratory Rate 16 04/26/25 14:39 Pulse Oximetry 95 04/26/25 14:39 Oxygen Delivery Me thod Nasal Cannula 04/26/25 14:39 Oxygen Flow Rate 2 04/26/25 14:39 MDM - Back Pain/Injury Medical Decision Making CT shows a L2 compression fracture. L3 compression fracture old or date. Will discharge patient home continue to use the oxycodone will set her up for outpatient evaluation with spine surgery for consideration of kyphoplasty. Medical Records I reviewed the patient's medical records. Labs I reviewed the patient's lab results. Radiology Impressions Lumbar Spine CT 04/26/25 15:14 IMPRESSION: 1. Acute L2 compression fracture with 3.6 mm retropulsion of the posterior superior endplate. Loss of height by approximately 20%. 2. Very slight anterior wedging of L3. Age-indeterminate fracture. 3. Multilevel osteophytic ridging and disc bulging and facet arthritis throughout the lumbar spine. No high-grade central stenosis. All radiology interpretation(s) finalized by discharge Discharge Plan Discharge Patient Disposition: Home Clinical Impression: Compression fracture of lumbar vertebra Condition: Stable Prescriptions: No Action (DME) diabetic shoes with 3 inserts See Rx Instructions .Route .MEDSUPPLY Qty: 1 0RF Rx Instructions: As directed to HOME medical supply cholecalciferol (vitamin D3) 125 mcg (5,000 unit) capsule 125 mcg PO DAILY Qty: 90 3RF potassium chloride 10 mEq capsule, extended release 10 meq PO BID Allergy Relief (loratadine) 10 mg capsule 10 mg PO DAILY prednisone 20 mg tablet See Rx Instructions .Route .COMPLEX Qty: 11 0RF Rx Instructions: Take 2 tabs PO x 3 days, then 1 tab PO x 3 days, then 1/2 tab x 3 days. amoxicillin-pot clavulanate 875-125 mg tablet 1 tab PO BID Qty: 14 0RF azithromycin [Zithromax Z-Drake] 250 mg tablet See Rx Instructions PO .COMPLEX Qty: 6 0RF Rx Instructions: take 500 mg today (day 1), then 250 mg for 4 days (days 2-5) PO ipratropium-albuterol 0.5 mg-3 mg(2.5 mg base)/3 mL solution for nebulization 3 ml inhalation Q4H PRN (Reason: wheezing) Qty: 90 0RF oxycodone-acetaminophen 5-325 mg tablet 1 tab PO Q8H PRN (Reason: pain) 30 Days Qty: 90 0RF (DME) pen needle, diabetic [Pen Needle] 31 gauge x 5/16 needle See Rx Instructions .MEDSUPPLY Qty: 100 12RF Rx Instructions: Use as directed for insulin administration (DME) insulin syringe-needle U-100 [Droplet Insulin Syringe] 0.3 mL 31 gauge x 5/16 syringe See Rx Instructions .ROUTE .COMPLEX Qty: 300 3RF Dose Instruction: USE DIRECTED Rx Instructions: USE DIRECTED (DME) True Metrix Glucose Test Strip Strip See Rx Instructions .ROUTE .COMPLEX Qty: 300 3RF Dose Instruction: USE DIRECTED Rx Instructions: USE DIRECTED (DME) lancets [TRUEplus Lancets] 33 gauge misc See Rx Instructions .ROUTE .COMPLEX Qty: 300 3RF Dose Instruction: USE DIRECTED Rx Instructions: USE DIRECTED alcohol swabs [DropSafe Alcohol Prep Pads] Pads, Medicated See Rx Instructions .ROUTE .COMPLEX Qty: 300 3RF Dose Instruction: USE DIRECTED Rx Instructions: USE DIRECTED mycophenolate mofetil [CellCept] 500 mg tablet 500 mg PO BID Qty: 60 3RF pregabalin 200 mg capsule 200 mg PO DAILY Qty: 90 0RF Lantus Solostar U-100 Insulin 100 unit/mL (3 mL) insulin pen 18 unit SUBCUT DAILY Qty: 15 3RF nifedipine 30 mg tablet extended release 30 mg PO DAILY Qty: 90 3RF omeprazole 20 mg capsule,delayed release(DR/EC) 20 mg PO DAILY Qty: 90 3RF Humulin R Regular U-100 Insuln 100 unit/mL solution See Rx Instructions .ROUTE .COMPLEX Qty: 10 10RF Dose Instruction: INJECT DIRECTED BS 0-150:0U, 151-200:2U, 201-250:4U, 251-300: 6U, 301-350:8U, 351-400:10U, 401+ CALL DR OR GO TO ER IF OFFICE CLOSED, MAX 30U/DAY Rx Instructions: INJECT DIRECTED BS 0-150:0U, 151-200:2U, 201-250:4U, 251-300: 6U, 301-350:8U, 351-400:10U, 401+ CALL DR OR GO TO ER IF OFFICE CLOSED, MAX 30U/DAY furosemide 40 mg tablet 40 mg PO DAILY ropinirole 1 mg tablet 1 mg PO DAILY Discharge Orders: Discharge ED (Routine); Ordered 04/26/25 Ordered By: Milton Storm Referrals: Ganga Marley, [Primary Care Provider, Family Practice] Discharge Diet: Usual diet Discharge Activity: Increase activity as tolerated Patient Instructions: Vertebral Compression Fracture (ED), Opioid Safety, Pain Management, Patient Portal & Niall Instructions Activity Restrictions/Additional Instructions: Thank you for choosing [facility] for your healthcare needs today. It is very important that you follow up as instructed or that you return to the Emergency Department should you have concerns or if your condition changes or worsens in any way. You were seen in the emergency room with complaints of pain in your low back CT shows a new acute compression fracture in your back. Case management make arrangements for you to follow-up with orthopedic spine surgery to evaluate for kyphoplasty. Use the oxycodone you have previously been prescribed for pain avoid lifting bending or stooping Print Language: Irish Coding Level of Care Code ED Measurement Technician for Nathan Grady
--- NOTE | 2025-04-26 15:14 | CT_ITS ---
WS: [id number] CT LUMBAR SPINE, noncontrast. HISTORY: pain - popping sensation TECHNIQUE: Contiguous 2.0 mm axial imaging are performed. Sagittal and coronal reformats are submitted and reviewed. All CT scans at [facility] use at least one of these dose optimization techniques: automated exposure control; mA and/or kV adjustment per patient size (includes targeted exams where dose is matched to clinical indication); or iterative reconstruction. IV contrast: None DLP: 886.14 mGy.cm COMPARISON: None available. Straightening of the normal lumbar lordosis. L2 anterolisthesis by 3 mm. L2: Acute L2 fracture with loss of height involving the anterior superior endplate by approximately 20%. Vacuum disc phenomenon at L1-2. There is slight retropulsion of the posterior endplate by 3.6 mm. There is very slight anterior wedging superior endplate of L3. L1-2: Mild osteophytic ridging. Mild annular disc bulging. Posterior retropulsion of the superior endplate of L2 with mild encroachment upon the thecal sac. Mild central and subarticular recess and foraminal stenosis. L2-3: Diffuse annular disc bulging with osteophytic ridging. Marked facet arthritis. Mild central, subarticular recess and foraminal stenosis. L3-4: Mild annular disc bulging, osteophytic ridging and facet arthritis. Mild central and subarticular recess narrowing. L4-5: Diffuse annular disc bulging with osteophytic ridging. Ligamentum flavum and facet arthritis. Mild bilateral subarticular recess encroachment and mild bilateral foraminal stenosis. L5-S1: Diffuse osteophytic ridging and facet arthritis. Osteophyte contact on the S1 nerve roots. Mild bilateral subarticular recess and foraminal stenosis. Prior cholecystectomy. Mild atherosclerosis aorta. Splenic artery atherosclerotic disease. Mesenteric arteries are calcified. Visualized sacrum is intact. Osteopenia. CT/CT lumbar spine wo con* [id number] IMPRESSION: 1. Acute L2 compression fracture with 3.6 mm retropulsion of the posterior sup erior endplate. Loss of height by approximately 20%. 2. Very slight anterior wedging of L3. Age-indeterminate fracture. 3. Multilevel osteophytic ridging and disc bulging and facet arthritis through out the lumbar spine. No high-grade central stenosis.
[2025-04-26 16:00] VITALS: BP 180/70; PULSE 78; O2SAT 92
[2025-04-26 16:30] VITALS: RESP 18
[2025-04-26] MEDS: oxyCODONE 5 mg IR Tab/Cap 10 MG PO (16:30)
[2025-04-26 16:53] VITALS: BP 147/68; PULSE 66; O2SAT 95
--- NOTE | 2025-04-27 12:37 | PC.NURSE ---
Ortho referral sent
== END 2025-04-26 16:54 | disposition home or self-care (01) ==
PROVIDERS: Emergency Provider Family Medicine; PCP Family Medicine
DX: S32.020A Wedge compression fracture of second lumbar vertebra, initial encounter for closed fracture (principal); Z79.4 Long term (current) use of insulin; E11.9 Type 2 diabetes mellitus without complications; J44.9 Chronic obstructive pulmonary disease, unspecified; I10 Essential (primary) hypertension; X58.XXXA Exposure to other specified factors, initial encounter
CPT/HCPCS: 72131; 99284; J9999

== ENCOUNTER → 2025-04-28 14:22 | Outpatient (BNVA) | payer OTHER, MEDICAID, SELFPAY | PROVIDERS: PCP Family Medicine; Visit Provider Orthopaedic Surgery | DX: S32.020A Wedge compression fracture of second lumbar vertebra, initial encounter for closed fracture (principal); X58.XXXA Exposure to other specified factors, initial encounter | CPT/HCPCS: 72100; 99203 ==

== ENCOUNTER → 2025-05-04 09:46 | Outpatient (BNVA) | payer OTHER, MEDICAID, SELFPAY | PROVIDERS: PCP Family Medicine; Visit Provider Podiatrist Foot & Ankle Surgery | DX: E10.69 Type 1 diabetes mellitus with other specified complication (principal); B35.1 Tinea unguium; I73.9 Peripheral vascular disease, unspecified; L84 Corns and callosities; L03.90 Cellulitis, unspecified; E10.621 Type 1 diabetes mellitus with foot ulcer; L97.512 Non-pressure chronic ulcer of other part of right foot with fat layer exposed; L97.522 Non-pressure chronic ulcer of other part of left foot with fat layer exposed; Z79.4 Long term (current) use of insulin | CPT/HCPCS: 11721; 99214 ==

== ENCOUNTER → 2025-06-28 11:06 | Outpatient (BNVA) | payer OTHER, MEDICAID, SELFPAY | PROVIDERS: PCP Family Medicine; Visit Provider Podiatrist Foot & Ankle Surgery | DX: E08.621 Diabetes mellitus due to underlying condition with foot ulcer (principal); L97.502 Non-pressure chronic ulcer of other part of unspecified foot with fat layer exposed | CPT/HCPCS: 87070; 87075; 87205 ==

== ENCOUNTER → 2025-07-07 09:52 | Outpatient (BNVA) | payer OTHER, MEDICAID, SELFPAY | PROVIDERS: PCP Family Medicine; Visit Provider Internal Medicine Rheumatology | DX: M34.9 Systemic sclerosis, unspecified (principal); M34.1 CR(E)ST syndrome; Z79.899 Other long term (current) drug therapy; W57.XXXA Bitten or stung by nonvenomous insect and other nonvenomous arthropods, initial encounter; Z71.85 Encounter for immunization safety counseling; Z86.39 Personal history of other endocrine, nutritional and metabolic disease | CPT/HCPCS: 36415; 73130; 73502; 80076; 82565; 85025; 85651; 86140; 86480; 99213; 99215 ==

== ENCOUNTER → 2025-07-28 10:38 | Outpatient (BNVA) | payer OTHER, MEDICAID, SELFPAY | PROVIDERS: PCP Family Medicine; Visit Provider Podiatrist Foot & Ankle Surgery | DX: I73.9 Peripheral vascular disease, unspecified (principal); B35.1 Tinea unguium; E10.69 Type 1 diabetes mellitus with other specified complication; L84 Corns and callosities; E10.621 Type 1 diabetes mellitus with foot ulcer; L97.512 Non-pressure chronic ulcer of other part of right foot with fat layer exposed; L03.116 Cellulitis of left lower limb; Z79.4 Long term (current) use of insulin; Z79.85 Long-term (current) use of injectable non-insulin antidiabetic drugs | CPT/HCPCS: 99214 ==

== ENCOUNTER → 2025-08-01 13:59 | Outpatient (BNVA) | payer OTHER, MEDICAID, SELFPAY | PROVIDERS: PCP Family Medicine; Visit Provider Thoracic Surgery (Cardiothoracic Vascular Surgery) | DX: E11.52 Type 2 diabetes mellitus with diabetic peripheral angiopathy with gangrene (principal); E11.621 Type 2 diabetes mellitus with foot ulcer; L97.512 Non-pressure chronic ulcer of other part of right foot with fat layer exposed; L97.511 Non-pressure chronic ulcer of other part of right foot limited to breakdown of skin; L97.522 Non-pressure chronic ulcer of other part of left foot with fat layer exposed; L97.521 Non-pressure chronic ulcer of other part of left foot limited to breakdown of skin; L89.312 Pressure ulcer of right buttock, stage 2 | CPT/HCPCS: 11042; 97597; 99203; A6210; A6212 ==

== ENCOUNTER 2025-08-04 11:13 | Emergency (ER) | payer OTHER, MEDICAID, SELFPAY ==
[2025-08-04] VITALS (10 sets, daily range): BP systolic 151–192; BP diastolic 65–89; PULSE 76–89; RESP 20–22; TEMP 36.9; O2SAT 83–100; BMI 31.6
--- NOTE | 2025-08-04 11:31 | W.ED.GENADLT ---
HPI - General Adult General: Chief complaint: Shortness of Breath/Dyspnea Stated complaint: migraine (sent by fabiano) Time Seen by Provider: 08/04/25 11:30 History of Present Illness: 80-year-old female patient presents emergency room with complaint of headache. She usually cannot walk she uses an electric wheelchair she uses oxygen continuously at home. No recent falls. She she has a frontal headache bilaterally. She also knows her blood pressure has been up lately no chest pain. No productive cough Associated symptoms: Reports dyspnea; Deny chest pain or rash Related Data Home Medications ?Medication ?Instructions ?Recorded ?Confirmed loratadine 10 mg capsule (Allergy 10 mg PO DAILY 03/01/25 08/04/25 Relief (loratadine)) Previous Rx's ?Medication ?Instructions ?Recorded diabetic shoes with 3 inserts #1 ea 01/01/24 cholecalciferol (vitamin D3) 125 125 mcg PO DAILY #90 caps 01/26/24 mcg (5,000 unit) capsule alcohol swabs (DropSafe Alcohol See Rx Instructions .Route 11/11/24 Prep Pads) .COMPLEX #300 swabs blood sugar diagnostic (True #300 strips 11/11/24 Metrix Glucose Test Strip) insulin syringe-needle U-100 0.3 #300 ea 11/11/24 mL 31 gauge x 5/16 (Droplet Insulin Syringe) lancets 33 gauge (TRUEplus Lancets) #300 ea 11/11/24 pen needle, diabetic 31 gauge x #100 ea 11/11/24 5/16 (Pen Needle) insulin glargine 100 unit/mL (3 18 unit (0.18 mL) SUBCUT DAILY #15 03/29/25 mL) subcutaneous pen (Lantus mL Solostar U-100 Insulin) nifedipine 30 mg tablet,extended 30 mg PO DAILY #90 tabs 03/29/25 release omeprazole 20 mg capsule,delayed 20 mg PO DAILY #90 caps 03/29/25 release ipratropium 0.5 mg-albuterol 3 mg 3 ml inhalation Q4H PRN wheezing 04/04/25 (2.5 mg base)/3 mL nebulization #90 mL soln insulin regular human 100 unit/mL See Rx Instructions .Route 04/25/25 injection solution (Humulin R .COMPLEX #10 mL Regular U-100 Insulin) furosemide 40 mg tablet 40 mg PO .COMPLEX #60 tabs 05/03/25 alcohol swabs 1 pad topical DIRECTED #200 ea 05/13/25 blood sugar diagnostic (Blood #200 ea 05/13/25 Glucose Test strips) blood-glucose meter #1 ea 05/13/25 lancets #200 ea 05/13/25 hospital bed #1 ea 06/15/25 potassium chloride 10 mEq 10 meq PO QDAY #100 caps 06/23/25 capsule,extended release ondansetron 4 mg disintegrating 4 mg PO Q8H PRN nausea and 07/06/25 tablet vomiting #30 tabs mycophenolate mofetil 500 mg 500 mg PO BID #180 tabs 07/07/25 tablet (CellCept) oxycodone-acetaminophen 10 mg-325 1 tab PO Q6H PRN pain 30 days #120 07/15/25 mg tablet tabs doxycycline hyclate 100 mg tablet 100 mg PO BID #14 tabs 08/01/25 pentoxifylline 400 mg 400 mg PO TID #90 tabs 08/01/25 tablet,extended release pregabalin 200 mg capsule 200 mg PO DAILY #90 caps 08/01/25 ropinirole 1 mg tablet 1 mg PO DAILY 90 days #90 tabs 08/02/25 semaglutide 0.25 mg or 0.5 mg (2 See Rx Instructions .Route 08/02/25 mg/3 mL) subcutaneous pen injector .COMPLEX #3 mL (Ozempic) metoprolol succinate 25 mg 25 mg PO DAILY #30 tabs 08/04/25 tablet,extended release 24 hr (Toprol XL) Allergies Allergy/AdvReac Type Severity Reaction Status Date / Time codeine Allergy Intermediate Unknown Verified 08/04/25 09:35 levofloxacin Allergy ADR-Seizure Verified 08/04/25 09:35 Review of Systems Const: Denies: fever(s) or chills Card: Denies: chest pain Resp: Reports: dyspnea; Denies: productive cough or non-productive cough GI: Denies: abdominal pain : Denies: dysuria, urinary frequency or urinary urgency Musc: Denies: neck pain or back pain Skin/Breast: Denies: rash PFSH ED PFSH: Medical History Immunization counseling Tick bite High risk medication use CREST syndrome Scleroderma, 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 History of skin cancer Hypertension COPD (chronic obstructive pulmonary disease) Diabetes mellitus Surgical History History of appendectomy History of hip replacement, total bilateral History of hysterectomy History of bladder repair surgery Previous back surgery Social History Smoking and tobacco/nicotine status: never used tobacco/nicotine Alcohol intake: never Substance/Drug Use: never Female Reproductive History: Spontaneous abortions: No Physical Exam Const: GENERAL APPEARANCE: cooperative ORIENTATION/CONSCIOUSNESS: Yes awake, Yes oriented to person, Yes oriented to place and Yes oriented to time HENMT: COMMON NORMALS: normocephalic, atraumatic and hearing grossly normal bilaterally HEAD & SCALP: normocephalic and atraumatic Resp: COMMON NORMALS: normal respiratory effort, No retractions, No use of accessory muscles and clear to auscultation bilaterally AUSCULTATION: clear to auscultation bilaterally Cardio: COMMON NORMALS: regular rate, regular rhythm and No murmurs present (Cardio) RATE: regular rate RHYTHM: regular rhythm GI: COMMON NORMALS: Soft to palpation and No hepatosplenomegaly present AUSCULTATION: Yes normoactive bowel sounds PALPATION: Yes Soft to palpation, No Tenderness to palpation present (GI), No Guarding due to palpation present (GI) and Yes No hepatosplenomegaly present Extremity: COMMON NORMALS: normal to inspection, capillary refill normal, no clubbing, cyanosis or edema, no calf tenderness and no pedal edema Neuro: SENSORIUM/ORIENTATION: Yes oriented to person, Yes oriented to place and Yes oriented to time Skin: COMMON NORMALS: no rashes or lesions noted GENERAL SKIN EXAM: no rashes or lesions noted Course Vital Signs: Vital signs: Vital Signs Temperature 98.4 F 08/04/25 11:41 Pulse Rate 89 08/04/25 17:25 Respiratory Rate 20 H 08/04/25 13:25 Blood Pressure 155/65 08/04/25 17:25 Pulse Oximetry 100 08/04/25 17:25 Oxygen Delivery Me thod Nasal Cannula 08/04/25 17:00 Oxygen Flow Rate 3 08/04/25 13:23 [facility] - General Adult Medical Decision Making CT head negative. Laboratory test unremarkable blood gas did not show any significant hypoxia. States her headache is improved some CT will go ahead and discharge patient home. Follow-up with her primary care doctor. Reviewed findings with her including chest x-ray which was normal Medical Records I reviewed the patient's medical records. Lab Data I reviewed the patient's lab results. 08/04/25 14:43 08/04/25 14:43 Radiology Impressions Chest X-Ray 08/04/25 11:40 IMPRESSION: 1. No acute cardiopulmonary finding. Head CT 08/04/25 13:00 IMPRESSION: 1. No acute intracranial hemorrhage or edema. 2. Very mild cerebral cerebral atrophy and small vessel disease. 3. Prior LEFT mastoidectomy. Laboratory Results WBC 4.72 10^3/uL (3.29-11.43) 08/04/25 14:43 RBC 4.38 10^6/uL (3.85-5.65) 08/04/25 14:43 Hgb 11.80 g/dL (11.27-16.99) 08/04/25 14:43 Hct 40.4 % (36-47) 08/04/25 14:43 MCV 92.2 fl (85-98) 08/04/25 14:43 MCH 26.9 pg (27-33) L 08/04/25 14:43 MCHC 29.2 g/dL (30-55) L 08/04/25 14:43 RDW 15.2 % (12.1-15.1) H 08/04/25 14:43 Plt Count 147 10^3/cmm (157-399) L 08/04/25 14:43 MPV 11.3 fL (7.4-10.4) H 08/04/25 14:43 Neut % (Auto) 90.3 % 08/04/25 14:43 Lymph % (Auto) 5.9 % 08/04/25 14:43 Pershing % (Auto) 1.9 % 08/04/25 14:43 Eos % (Auto) 0.0 % 08/04/25 14:43 Baso % (Auto) 0.2 % 08/04/25 14:43 Neut # (Auto) 4.26 10^3/uL (1.8-7.7) 08/04/25 14:43 Lymph # (Auto) 0.3 10^3/uL (0.8-4.8) L 08/04/25 14:43 Pershing # (Auto) 0.1 10^3/uL (0.2-0.9) L 08/04/25 14:43 Eos # (Auto) 0.0 10^3/uL (0.0-0.8) 08/04/25 14:43 Baso # (Auto) 0.0 10^3/uL (0.0-0.1) 08/04/25 14:43 Nucleated RBC % (auto) 0 % 08/04/25 14:43 Nucleated RBCs # 0.0 /100WBC 08/04/25 14:43 Specimen Type Arterial 08/04/25 11:51 Sample Site Brachial, right 08/04/25 11:51 ABG pH 7.45 (7.35-7.45) 08/04/25 11:51 ABG pCO2 44.8 mmHg (35-45) 08/04/25 11:51 ABG pO2 108.0 mmHg (80.0-100.0) H 08/04/25 11:51 ABG PO2/FiO2 Ratio 337 08/04/25 11:51 ABG HCO3 31.3 mmol/L (22-26) H 08/04/25 11:51 ABG O2 Saturation 99.1 08/04/25 11:51 ABG Base Excess 6.5 mmol/L (-2.0-2.0) H 08/04/25 11:51 Silas Test Pos 08/04/25 11:51 A-a O2 Gradient 8.4 mmHg (5-10) 08/04/25 11:51 Hematocrit 34.2 % (37-47) L 08/04/25 11:51 Hgb O2 Saturation 97.4 % (95-100) 08/04/25 11:51 Carboxyhemoglobin 1.5 %THgb (0.4-20.1) 08/04/25 11:51 Methemoglobin 0.2 % (0.4-1.5) L 08/04/25 11:51 Total Hemoglobin 11.1 g/dL (12-16) L 08/04/25 11:51 Sodium 138.0 mmol/L (131-143) 08/04/25 11:51 Potassium 3.3 mmol/L (3.5-5.0) L 08/04/25 11:51 Glucose 153.0 mg/dL (70-115) H 08/04/25 11:51 Ionized Calcium 1.2 mmol/L (1.1-1.4) 08/04/25 11:51 O2 Delivery Device Nc 08/04/25 11:51 O2 Liters/Min 3.0 % 08/04/25 11:51 FiO2 32.0 % 08/04/25 11:51 Automotive Worker ID Monro 08/04/25 11:51 Sodium 134 mmol/L (136-145) L 08/04/25 14:43 Potassium 4.2 mmol/L (3.5-5.1) 08/04/25 14:43 Chloride 97 mmol/L (98-107) L 08/04/25 14:43 Carbon Dioxide 22 mmol/L (22-29) 08/04/25 14:43 Anion Gap 19.2 (5-19) H 08/04/25 14:43 BUN 12 mg/dL (8-23) 08/04/25 14:43 Creatinine 0.4 mg/dL (0.5-0.9) L 08/04/25 14:43 GFR Calculation Not Reportable 08/04/25 14:43 Glucose 163 mg/dL (65-115) H 08/04/25 14:43 Calculated Osmolality 281 mOsm/kg (285-295) L 08/04/25 14:43 Calcium 9.0 mg/dL (8.5-10.5) 08/04/25 14:43 Total Bilirubin 0.5 mg/dL (0.15-1.2) 08/04/25 14:43 AST 19 U/L (0-32) 08/04/25 14:43 ALT 7 U/L (0-33) 08/04/25 14:43 Alkaline Phosphatase 131 U/L (35-105) H 08/04/25 14:43 Total Protein 7.4 g/dL (6.6-8.7) 08/04/25 14:43 Albumin 3.7 g/dL (3.5-5.2) 08/04/25 14:43 Globulin 3.7 g/dL (1.3-4.6) 08/04/25 14:43 Influenza A (PCR) Negative (Negative) 08/04/25 11:43 Influenza Type B (PCR) Negative (Negative) 08/04/25 11:43 RSV (PCR) Negative (Negative) 08/04/25 11:43 SARS-CoV-2 (PCR) Negative (Negative) 08/04/25 11:43 All radiology interpretation(s) finalized by discharge Discharge Plan Discharge Patient Disposition: Home Clinical Impression: Headache, HTN (hypertension) Condition: Stable Prescriptions: New metoprolol succinate [Toprol XL] 25 mg tablet extended release 24 hr 25 mg PO DAILY Qty: 30 0RF No Action (DME) diabetic shoes with 3 inserts See Rx Instructions .Route .MEDSUPPLY Qty: 1 0RF Rx Instructions: As directed to HOME medical supply cholecalciferol (vitamin D3) 125 mcg (5,000 unit) capsule 125 mcg PO DAILY Qty: 90 3RF Allergy Relief (loratadine) 10 mg capsule 10 mg PO DAILY pentoxifylline 400 mg tablet extended release 400 mg PO TID Qty: 90 4RF Rx Instructions: must administer with a meal/food mycophenolate mofetil [CellCept] 500 mg tablet 500 mg PO BID Qty: 180 1RF ipratropium-albuterol 0.5 mg-3 mg(2.5 mg base)/3 mL solution for nebulization 3 ml inhalation Q4H PRN (Reason: wheezing) Qty: 90 0RF furosemide 40 mg tablet 40 mg PO .COMPLEX Qty: 60 5RF Rx Instructions: Take 40 mg PO two times a day x 5 days, then take one daily. (DME) pen needle, diabetic [Pen Needle] 31 gauge x 5/16 needle See Rx Instructions .MEDSUPPLY Qty: 100 12RF Rx Instructions: Use as directed for insulin administration (DME) insulin syringe-needle U-100 [Droplet Insulin Syringe] 0.3 mL 31 gauge x 5/16 syringe See Rx Instructions .ROUTE .COMPLEX Qty: 300 3RF Dose Instruction: USE DIRECTED Rx Instructions: USE DIRECTED (DME) True Metrix Glucose Test Strip Strip See Rx Instructions .ROUTE .COMPLEX Qty: 300 3RF Dose Instruction: USE DIRECTED Rx Instructions: USE DIRECTED (DME) lancets [TRUEplus Lancets] 33 gauge misc See Rx Instructions .ROUTE .COMPLEX Qty: 300 3RF Dose Instruction: USE DIRECTED Rx Instructions: USE DIRECTED alcohol swabs [DropSafe Alcohol Prep Pads] Pads, Medicated See Rx Instructions .ROUTE .COMPLEX Qty: 300 3RF Dose Instruction: USE DIRECTED Rx Instructions: USE DIRECTED Lantus Solostar U-100 Insulin 100 unit/mL (3 mL) insulin pen 18 unit SUBCUT DAILY Qty: 15 3RF nifedipine 30 mg tablet extended release 30 mg PO DAILY Qty: 90 3RF omeprazole 20 mg capsule,delayed release(DR/EC) 20 mg PO DAILY Qty: 90 3RF Humulin R Regular U-100 Insuln 100 unit/mL solution See Rx Instructions .ROUTE .COMPLEX Qty: 10 10RF Dose Instruction: INJECT DIRECTED BS 0-150:0U, 151-200:2U, 201-250:4U, 251-300: 6U, 301-350:8U, 351-400:10U, 401+ CALL DR OR GO TO ER IF OFFICE CLOSED, MAX 30U/DAY Rx Instructions: INJECT DIRECTED BS 0-150:0U, 151-200:2U, 201-250:4U, 251-300: 6U, 301-350:8U, 351-400:10U, 401+ CALL DR OR GO TO ER IF OFFICE CLOSED, MAX 30U/DAY (DME) blood-glucose meter Misc See Rx Instructions .MEDSUPPLY Qty: 1 0RF Rx Instructions: Use as directed for checking blood sugar. Check 5x day (DME) Blood Glucose Test Strip See Rx Instructions .MEDSUPPLY Qty: 200 12RF Rx Instructions: Use as directed with glucometer to check blood sugar. Check 5x day (DME) lancets Misc See Rx Instructions .MEDSUPPLY Qty: 200 12RF Rx Instructions: Use as directed to prick skin for blood sugar checks. Check 5x day alcohol swabs Pads, Medicated 1 pad topical DIRECTED Qty: 200 12RF Rx Instructions: Use as directed to clean skin prior to finger stick or medication injection. Check 5x day (DME) hospital bed See Rx Instructions .Route .MEDSUPPLY Qty: 1 0RF Rx Instructions: Adjustable hospital bed to assist with positioning, bed mobility, transfers and pain management. potassium chloride 10 mEq capsule, extended release 10 meq PO QDAY Qty: 100 3RF Rx Instructions: Take one capsule daily with Lasix, for hypokalemia. ondansetron 4 mg tablet,disintegrating 4 mg PO Q8H PRN (Reason: nausea and vomiting) Qty: 30 1RF oxycodone-acetaminophen 10-325 mg tablet 1 tab PO Q6H PRN (Reason: pain) 30 Days Qty: 120 0RF doxycycline hyclate 100 mg tablet 100 mg PO BID Qty: 14 0RF pregabalin 200 mg capsule 200 mg PO DAILY Qty: 90 1RF ropinirole 1 mg tablet 1 mg PO DAILY 90 Days Qty: 90 0RF Ozempic 0.25 mg or 0.5 mg (2 mg/3 mL) pen injector See Rx Instructions .ROUTE .COMPLEX Qty: 3 2RF Dose Instruction: INJECT 0.5 MG SUBCUTANEOUSLY ONCE WEEKLY Rx Instructions: INJECT 0.5 MG SUBCUTANEOUSLY ONCE WEEKLY Discharge Orders: Discharge ED (Routine); Ordered 08/04/25 Ordered By: Milton Storm Referrals: Ganga Marley DO [Primary Care Provider, Family Practice] Discharge Diet: Usual diet Discharge Activity: Resume usual activity Patient Instructions: Opioid Safety, Pain Management, Patient Portal & Niall Instructions Activity Restrictions/Additional Instructions: Thank you for choosing [facility] for your healthcare needs today. It is very important that you follow up as instructed or that you return to the Emergency Department should you have concerns or if your condition changes or worsens in any way. Emergency department visits are focused on emergent conditions, in some cases you may require further evaluation on an outpatient basis. You were seen in the emergency room with complaints of being short of breath. Your oxygen sat was normal on 2 L while you are in the emergency room. Your chest x-ray did not show any signs of pneumonia. (Please note that included in your discharge packet is information concerning opioid safety and pain management. This information is given to all patients were discharged from the ER regardless of their discharge diagnosis or the medicines they usually take or are prescribed.) Print Language: Czech Coding Level of Care Code ED Retail Store Manager for Nathan Grady
--- NOTE | 2025-08-04 11:40 | XR_ITS ---
WS: [id number] Exam: XR chest 1V portable [id number] Date/Time of Exam: 08/04/2025 11:40 AM Reason For Exam: dyspnea/cough Comparison 04/09/2023. Lungs are fully expanded and clear. Cardiomediastinal silhouette is unremarkable for technique. No pleural effusion. The mediastinum is normal in contour. 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 XR/XR chest 1V portable [id number] IMPRESSION: 1. No acute cardiopulmonary finding.
--- OUTSIDE RECORDS SUMMARY | 2025-08-04 11:53 | XMS_ITS | Encounter Summary ---
Author Organization [facility] Address [address] [place] [address] Care Team Providers Care Material Reprocessing Associate Name Role Phone Chinmay Mendoza MD Primary Care Provider Encounter Details Date Type Department Care Team (Late st Contact Info) Description 06/23/2018 Ancillary Orders [facility] Imaging Services [address] 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
--- OUTSIDE RECORDS SUMMARY | 2025-08-04 11:53 | XMS_ITS | Encounter Summary ---
Author Organization [facility] Address [address] [place] [address] Care Team Providers Care Parking Officer Name Role Phone Chinmay Mendoza MD Primary Care Provider [phone] Reason for Referral * Outpatient Services (Routine) - Closed Specialty Diagnoses / Procedures Referred By Gayatri gillette Referred To Contact Radiology Diagnoses Choledocholithiasis Abnormal findings on diagnostic imaging of liver and biliary tract Procedures US GUIDE NEEDLE PLACEMENT Florian Quintero MD [address] [address] Phone: tel: fax: [facility] Ultrasound [address] [place] [address] Phone: tel: fax: Referral ID Status Reason Start Date Expiration Date Visits Re quested Visits Authorized [id number] Closed 06/23/2018 07/24/2019 1 1 Encounter Details Date Type Department Care Team (Late st Contact Info) Description 06/23/2018 Ancillary Orders [facility] Gastroenterology- [facility] [address] [facility] [address] [place] [phone] Florian Quintero MD [address] [phone] Choledocholithiasis; Abnormal findings on diagnostic imaging of liver and biliary tract Social History Tobacco Use Types Packs/Day Years Used Date Smoking Tobacco: Never Smokeless Tobacco: Never Alcohol Use Standard Drinks/Week Comments No 0 (1 standard drink = 0.6 oz pur e alcohol) Comments No Sex and Gender Information Value Date Recorded Sex Assigned at Not on file 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
--- OUTSIDE RECORDS SUMMARY | 2025-08-04 11:53 | XMS_ITS | Clinical Summary ---
Author Organization [facility] Address [address] [place] [address] Care Team Providers Care Outpatient Surgery Rn Name Role Phone Unavailable Primary Care Provider Unavailabl e Allergies Active Allergy Reactions Criticality Noted Date Comments Codeine Nausea and Vomiting Low 03/26/2018 Levofloxacin Seizure High 03/26/2018 Medications No known medications Active Problems Problem Noted Date Diagnosed Date Recurrent UTI 07/25/2022 Chronic pain of both shoulders 06/18/2022 Cervicalgia 06/18/2022 Melena 02/06/2022 Hypokalemia 02/06/2022 Acute left flank pain 02/06/2022 Iron deficiency anemia 11/13/2021 Chronic bronchitis 07/25/2021 Chronic respiratory failure with hypoxia, on home O2 therapy 07/09/2021 Chest pain 03/21/2021 Dyspnea 03/21/2021 Leg swelling 03/21/2021 Pain of finger of left hand 03/21/2021 Left-sided chest wall pain 03/21/2021 Respiratory failure 03/16/2021 Heart palpitations 11/24/2020 Other primary thrombocytopenia 09/10/2020 CKD stage 2 due to type 2 diabetes mellitus 08/07 History of COPD 08/26/2020 Normocytic anemia 08/26/2020 Restless leg syndrome 08/26/2020 Vitamin D deficiency 07/13/2020 Vitamin B12 deficiency (non anemic) 07/13/2020 Dyslipidemia, goal LDL below 70 03/13/2020 Chronic pain of both hips 03/13/2020 Chronic diarrhea 03/13/2020 External hemorrhoids 03/13/2020 COPD 02/08/2020 Bilateral hand pain 01/05/2019 Decreased ambulation status 01/05/2019 Knee instability, left 01/05/2019 Morbid obesity with BMI of 45.0-49.9, adult 07/07 Overview (02/01/2021): Theodore Bonner ABHILASH 10. Type 2 diabetes mellitus wit h diabetic polyneuropathy, with long-term current use of insulin 03/26/2018 Essential hypertension 03/26/2018 Venous stasis dermatitis of left lower extremity 03/26/2018 Fibromyalgia 03/26/2018 Chronic GERD 03/26/2018 History of left knee replacement 03/26/2018 Chronic pain syndrome 03/26/2018 Peripheral edema 03/26/2018 Iron deficiency 03/26/2018 Immunizations Immunization Administration Dates Next Due (PNEUMOVAX 23)(50 YRS UP) PN EUMOCOCCAL POLYSACCHARIDE (PPV23) 0.5 ML, IM 03/26/2018 (PREVNAR 13)(6 WKS UP) PNEUM OCOCCAL CONJUGATE (PCV13) 0.5 ML, IM 07/15/2019 INFLUENZA VACCINE HIGH DOSE QUADRIVALENT 65 YR UP PF IM 07/13/2020,07/15/2019,07/20/2018 Influenza Seasonal Unspecifi ed Formulation IM 09/05/2021 Influenza Vaccine High Dose 65+ Yrs IM 9 Influenza, Unspecified Formulation 07/06/2020 Zoster Vaccine Live SQ 07/28/2013 Family History Medical History Relation Name Comments Heart Disease Father Diabetes Mother Hypertension Mother Stroke Mother Colon Cancer Neg Hx Relation Name Status Comments Father Mother Social History Tobacco Use Types Packs/Day Years Used Date Smoking Tobacco: Never Passive Smoke Exposure: Never Smokeless Tobacco: Never Tobacco Cessation:Counseling Given: Not Answered Alcohol Use Standard Drinks/Week Comments No 0 (1 standard drink = 0.6 oz pur e alcohol) Financial Resource Strain Answer Date R ecorded How hard is it for you to pa y for the very basics like food, housing, medical care, and heating? Not hard at all 02/14/2022 Food Insecurity Answer Date Recorded In the past 12 months, have you worried that your food would run out before you had money to buy more? Never true 02/14/2022 In the past 12 months, did y ou run out of food and didn't have money to buy more? Never true 02/14/2022 Transportation Needs Answer Date Record ed In the past 12 months, has l ack of transportation kept you from medical appointments or from getting medications? No 02/14/2022 Lack of Transportation (Non-Medical) Not on file 02/14/2022 Comments Unknown Sex and Gender Information Value Date Recorded Sex Assigned at Not on file Legal Sex Female 2:23 PM PHYSICAL SCIENCES PROFESSOR Gender Identity Not on file Sexual Orientation Not on file Last Filed Vital Signs Vital Sign Reading Time Taken Comments Blood Pressure 152/64 09/02/2022 9:55 AM PHYSICAL SCIENCES PROFESSOR Pulse 72 09/02/2022 9:55 AM PHYSICAL SCIENCES PROFESSOR Temperature 36.4 C (97.6 F) 09/02/2022 9:55 AM PHYSICAL SCIENCES PROFESSOR Respiratory Rate 20 09/02/2022 9:55 AM PHYSICAL SCIENCES PROFESSOR Oxygen Saturation 96% 02/14/2022 8:28 AM CDT Inhaled Oxygen Concentration - - Weight 117.9 kg (260 lb) 09/02/2022 9:55 AM PHYSICAL SCIENCES PROFESSOR reported Height 165.1 cm (5' 5 ) 09/02/2022 9:55 AM PHYSICAL SCIENCES PROFESSOR Body Mass Index 43.27 09/02/2022 9:55 AM PHYSICAL SCIENCES PROFESSOR Plan of Treatment Health Maintenance Due Date Last Done Comments DTAP/TDAP/TD VACCINES (1 - Tdap) 1962 OSTEOPOROSIS SCREENING 01/07/2008 ZOSTER VACCINE (2 of 3) 09/22/2013 07/28/2013 RSV VACCINE (60+ or ) (1 - 1-dose 75+ series) 2018 LDL CHOLESTEROL ANNUAL 11/13/2022 , 03/15/2021, 07/13/2020, Additional history exists DIABETES HBA1C Q 6 MONTHS 12/16/20222021, 11/13/2021, 03/15/2021, Additional history exists DIABETES MICROALBUMIN ANNUAL SCREEN 01/10/2023 01/10/2022, 07/13/2020, 01/05/2019, Additional history exists DIABETES ANNUAL RETINAL EXAM 04/04/2023, 09/10/2021, 07/13/2020, Additional history exists DIABETES ANNUAL FOOT EXAM 07/25/20232021, 03/26/2018, 03/26/2018, Additional history exists INFLUENZA VACCINE (#1) 2025 , 07/13/2020, 07/15/2019, Additional history exists PNEUMOCOCCAL VACCINE 50+ YEARS Completed 07/15/2019 , 03/26/2018 COLORECTAL SCREENING Discontinued 04/25/2021 Colorectal Cancer Screening Discontinued FIT-DNA Q 3 years Discontinued FIT/FOBT Q 1 year Discontinued Flex Sig/CT Colonography Q 5 years Discontinued Procedures Procedure Name Priority Date/Time Associated Diagnosis Comments HEMOGLOBIN A1C Routine 06/18/2022 9:23 AM CDT Type 2 diabetes mellitus with diabetic polyneuropathy, with long-term current use of insulin ([facility]) DIABETES EYE EXAM Routine 04/04/2022 MICROALBUMIN/CREATI NINE RATIO, RANDOM UR Routine 01/10/2022 10:18 AM CDT Type 2 diabetes mellitus with diabetic polyneuropathy, with long-term current use of insulin ([facility]) LIPID PANEL Routine 11/13/2021 9:27 AM PHYSICAL SCIENCES PROFESSOR Type 2 diabetes mellitus with diabetic polyneuropathy, with long-term current use of insulin ([facility]) Essential hypertension DIABETES FOOT EXAM 03/26/2018 12:00 AM CDT from Last 3 Months or Most Recently Relevant to Health Maintenance Results * (ABNORMAL) HEMOGLOBIN A1C (06/18/2022 9:23 AM CDT) HEMOGLOBIN A1C 6.6(H) <5.7 % of total Hgb [facility] Comment: For someone without known diabetes, a [...] A1c for diagnosis of diabetes for children. ESTIMATED AVERAGE GLUCOSE (MG/DL) 143 mg/dL [facility] ESTIMATED AVERAGE GLUCOSE (MMOL/L) 7.9 mmol/L [facility] Comment: Test Performed at: [facility] [address] [facility] [place] [address] James Shaw D.O., MPH Blood 06/18/2022 9:23 AM CDT 06/19/2022 2:55 AM CDT Jasmyn Atkins HOUSEKEEPER/LAUNDRY ASSISTANT CHEMISTRY ORDERABLES Final Result [facility] [phone] [facility] [address] [place] [address] * DIABETES EYE EXAM (04/04/2022) Abstract Provider HEALTH MAINTENANCE Final Resul t * MICROALBUMIN/CREATININE RATIO, RANDOM UR (01/10/2022 10:18 AM CDT) Creatinine, Urine 99 20 - 275 mg/dL [facility] MICROALBUMIN, URINE 0.9 See Note: mg/dL [facility] Comment: Reference Range: Reference Range Not established MICROALBUMIN/CREAT RATIO, UR 9 <30 mcg/mg creat [facility] Comment: The ADA defines abnormalities in albumin excretion as follows: Albuminuria Category Result (mcg/mg creatinine) Normal to Mildly increased <30 Moderately increased 30-299 Severely increased > OR = 300 The ADA recommends that at least two of three specimens collected within a 3-6 month period be abnormal before considering a patient to be within a diagnostic category. Test Performed at: [facility] [address] [facility] [place] [address] James Shaw D.O., MPH Urine URINE SPECIMEN OBTAINED BY CLEAN CATCH PROCEDURE / Unknown 01/10/2022 10:18 AM CDT 01/11/2022 8:33 AM CDT Jasmyn Atkins HOUSEKEEPER/LAUNDRY ASSISTANT URINE ORDERABLES Final Res ult [facility] [address] [place] [address] * (ABNORMAL) LIPID PANEL (11/13/2021 9:27 AM PHYSICAL SCIENCES PROFESSOR) CHOLESTEROL 173 <200 mg/dL [facility] HDL 45(L) > OR = 50 mg/dL [facility] TRIGLYCERIDE 95 <150 mg/dL [facility] LDL CALCULATED 109(H) mg/dL (calc) [facility] Comment: Reference range: <100 Desirable range <100 mg/dL for primary prevention; <70 mg/dL for patients with CHD or diabetic patients with > or = 2 CHD risk factors. LDL-C is now calculated using the Corin calculation, which is a validated novel method providing better accuracy than the Friedewald equation in the estimation of LDL-C. Rehan SS et al. LAW. 2013;310(19): 1238-2767 (http://education.[employer]/faq/WVK464) CHOL/HDL RATIO 3.8 <5.0 (calc) [facility] TOTAL NON-HDL CHOL(LDL+VLDL) 128 <130 mg/dL (calc) [facility] Comment: For patients with diabetes plus 1 major ASCVD risk factor, treating to a non-HDL-C goal of <100 mg/dL (LDL-C of <70 mg/dL) is considered a therapeutic option. Test Performed at: [facility] [address] [place] [address] James Shaw D.O., MPH Blood 11/13/2021 9:27 AM PHYSICAL SCIENCES PROFESSOR 11/14/2021 3:18 AM PHYSICAL SCIENCES PROFESSOR Jasmyn Atkins HOUSEKEEPER/LAUNDRY ASSISTANT CHEMISTRY ORDERABLES Final Result [facility] [address] [place] [address] * DIABETES FOOT EXAM (03/26/2018 12:00 AM CDT) Sgf Scanning HEALTH MAINTENANCE Final Result from Last 3 Months or Most Recently Relevant to Health Maintenance Insurance [facility] Advance Directives For more information, please contact: [phone] * Full Code (Latest Code Status on File) Date Activated Date Inactivated Comments 02/06/2022 1:43 AM 02/07/2022 7:42 PM * Full Code Date Activated Date Inactivated Comments 04/25/2021 12:03 PM 04/25/2021 4:50 PM
--- OUTSIDE RECORDS SUMMARY | 2025-08-04 11:53 | XMS_ITS | Encounter Summary ---
Author Organization [facility] Address [address] [place] [address] Care Team Providers Care Repair Weaver Name Role Phone Chinmay Mendoza MD Primary Care Provider [phone] Encounter Details Date Type Department Care Team (Latest Contact Info) Description 03/27/1999 Outpatient Historical [facility] Urology- [place] [address]tr[address], 3rd [place] [address] Fuad Mendez MD [address] [facility] [address] [place] [address] 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 (Primary Dx) Social History Tobacco Use Types Packs/Day Years Used Date Smoking Tobacco: Never Assessed Comments Unknown Sex and Gender Information Value Date Recorded Sex Assigned at Not on file Legal Sex Female 3:37 AM NURSE ORTHOPAEDIC Gender Identity Not on file Sexual Orientation Not on file documented as of this encounter Plan of Treatment Not on file documented as of this encounter Visit Diagnoses Diagnosis 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- Primary documented in this encounter Care Teams Repair Weaver Relationship Specialty Start Date End Date Chinmay Mendoza MD [address] [place] [phone] PCP - General Family Practice 06/22/19 documented as of this encounter
--- OUTSIDE RECORDS SUMMARY | 2025-08-04 11:53 | XMS_ITS | Encounter Summary ---
Author Organization [facility] Address [address] [place] [address] Care Team Providers Care Automotive Window Tinter Name Role Phone Chinmay Mendoza MD Primary Care Provider Encounter Details Date Type Department Care Team (Late st Contact Info) Description 03/08/1999 Outpatient Historical [facility] OBGYN-[place] [address] [place] [address] Nidia Gallardo MD [address] [facility], [facility] [address] [place] [address] Observ-suspect cond NEC (Primary Dx); 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; Uterovaginal prolapse, unspecified Social History Tobacco Use Types Packs/Day Years Used Date Smoking Tobacco: Never Assessed Comments Unknown Sex and Gender Information Value Date Recorded Sex Assigned at Not on file Legal Sex Female 3:37 AM EXECUTIVE CHAIRMAN Gender Identity Not on file Sexual Orientation Not on file documented as of this encounter Plan of Treatment Not on file documented as of this encounter Visit Diagnoses Diagnosis Observ-suspect cond NEC- Primary Observation and evaluation for other specified suspected conditions 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 Uterovaginal prolapse, unspecified documented in this encounter Care Teams Automotive Window Tinter Relationship Specialty Start Date End Date Chinmay Mendoza MD [address] [place] [phone] PCP - General Family Practice 06/22/19 documented as of this encounter
--- OUTSIDE RECORDS SUMMARY | 2025-08-04 11:53 | XMS_ITS | Encounter Summary ---
Author Organization [facility] Address [address] [place] [address] Care Team Providers Care Photographic Plate Maker Name Role Phone Chinmay Mendoza MD Primary Care Provider Encounter Details Date Type Department Care Team (Late st Contact Info) Description 05/28/1999 Outpatient Historical [facility] OBGYN-[place] [address] [place] [address] Nidia Gallardo MD [address] [facility], [facility] [address] [place] [address] Follow-up examination following surgery (Primary Dx); 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 Social History Tobacco Use Types Packs/Day Years Used Date Smoking Tobacco: Never Assessed Comments Unknown Sex and Gender Information Value Date Recorded Sex Assigned at Not on file Legal Sex Female 3:37 AM MANAGER EDUCATION Gender Identity Not on file Sexual Orientation Not on file documented as of this encounter Plan of Treatment Not on file documented as of this encounter Visit Diagnoses Diagnosis Follow-up examination following surgery- Primary 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 documented in this encounter Care Teams Photographic Plate Maker Relationship Specialty Start Date End Date Chinmay Mendoza MD [address] [place] [phone] PCP - General Family Practice 06/22/19 documented as of this encounter
--- OUTSIDE RECORDS SUMMARY | 2025-08-04 11:54 | XMS_ITS | Encounter Summary ---
Author Organization [facility] Address [address] [place] [address] Care Team Providers Care Manager Strategic Development Name Role Phone Chinmay Mendoza MD Primary Care Provider Encounter Details Date Type Department Care Team (Late st Contact Info) Description 12/04/1999 Outpatient Historical [facility] OBGYN-[place] [address] [place] [address] Nidia Gallardo MD [address] [facility], [facility] [address] [place] [address] 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 (Primary Dx) Social History Tobacco Use Types Packs/Day Years Used Date Smoking Tobacco: Never Assessed Comments Unknown Sex and Gender Information Value Date Recorded Sex Assigned at Not on file Legal Sex Female 3:37 AM MAGNETIC OBSERVER Gender Identity Not on file Sexual Orientation Not on file documented as of this encounter Plan of Treatment Not on file documented as of this encounter Visit Diagnoses Diagnosis 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- Primary documented in this encounter Care Teams Manager Strategic Development Relationship Specialty Start Date End Date Chinmay Mendoza MD [address] [place] [phone] PCP - General Family Practice 06/22/19 documented as of this encounter
--- OUTSIDE RECORDS SUMMARY | 2025-08-04 11:54 | XMS_ITS | Encounter Summary ---
Author Organization [facility] Address [address] [place] [address] Care Team Providers Care Organ Assembler Name Role Phone Chinmay Mendoza MD Primary Care Provider Encounter Details Date Type Department Care Team (Late st Contact Info) Description 06/12/1999 Outpatient Historical [facility] OBGYN-[place] [address] [place] [phone] Nidia Gallardo MD [address] [facility], [facility] [address] [place] [address] 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 (Primary Dx) Social History Tobacco Use Types Packs/Day Years Used Date Smoking Tobacco: Never Assessed Comments Unknown Sex and Gender Information Value Date Recorded Sex Assigned at Not on file Legal Sex Female 3:37 AM POWER PRESS OPERATOR Gender Identity Not on file Sexual Orientation Not on file documented as of this encounter Plan of Treatment Not on file documented as of this encounter Visit Diagnoses Diagnosis 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- Primary documented in this encounter Care Teams Organ Assembler Relationship Specialty Start Date End Date Chinmay Mendoza MD [address] [place] [phone] PCP - General Family Practice 06/22/19 documented as of this encounter
--- OUTSIDE RECORDS SUMMARY | 2025-08-04 11:54 | XMS_ITS | Encounter Summary ---
Author Organization [facility] Address [address] [place] [address] Care Team Providers Care Regional Sales Manager Name Role Phone Chinmay Mendoza MD Primary Care Provider Encounter Details Date Type Department Care Team (Latest Contact Info) Description 02/12/2002 Outpatient [facility] Gastroenterology[address] [place] [address] Peter Couch MD NO ADDRESS ON FILE GI SYSTEM SYMPTOMS OTHER (Primary Dx) Social History Tobacco Use Types Packs/Day Years Used Date Smoking Tobacco: Never Assessed Comments Unknown Sex and Gender Information Value Date Recorded Sex Assigned at Not on file Legal Sex Female 3:37 AM RECREATIONAL SPORTS DIRECTOR Gender Identity Not on file Sexual Orientation Not on file documented as of this encounter Plan of Treatment Not on file documented as of this encounter Visit Diagnoses Diagnosis Other symptoms involving digestive system(787.99)- Primary Other symptoms involving digestive system documented in this encounter Care Teams Regional Sales Manager Relationship Specialty Start Date End Date Chinmay Mendoza MD [address] [place] [phone] PCP - General Family Practice 06/22/19 documented as of this encounter
--- OUTSIDE RECORDS SUMMARY | 2025-08-04 11:54 | XMS_ITS | Encounter Summary ---
Author Organization [facility] Address [address] [place] [address] Care Team Providers Care Roll Operator Name Role Phone Chinmay Mendoza MD Primary Care Provider Encounter Details Date Type Department Care Team (Late st Contact Info) Description 11/06/1999 Outpatient Historical [facility] OBGYN-[place] [address] [place] [phone] Nidia Gallardo MD [address] [facility], [facility] [address] [place] [address] 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 (Primary Dx) Social History Tobacco Use Types Packs/Day Years Used Date Smoking Tobacco: Never Assessed Comments Unknown Sex and Gender Information Value Date Recorded Sex Assigned at Not on file Legal Sex Female 3:37 AM PRIVATE TUTORS AND TEACHERS Gender Identity Not on file Sexual Orientation Not on file documented as of this encounter Plan of Treatment Not on file documented as of this encounter Visit Diagnoses Diagnosis 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- Primary documented in this encounter Care Teams Roll Operator Relationship Specialty Start Date End Date Chinmay Mendoza MD [address] [place] [phone] PCP - General Family Practice 06/22/19 documented as of this encounter
--- OUTSIDE RECORDS SUMMARY | 2025-08-04 11:54 | XMS_ITS | Encounter Summary ---
Author Organization [facility] Address [address] [place] [address] Care Team Providers Care Director Of Enrollment Name Role Phone Chinmay Mendoza MD Primary Care Provider [phone] Encounter Details Date Type Department Care Team (Late st Contact Info) Description 12/18/2005 Outpatient [facility] Physical Med and Rehab[address] [place] [address] [address] Social History Tobacco Use Types Packs/Day Years Used Date Smoking Tobacco: Never Assessed Comments Unknown Sex and Gender Information Value Date Recorded Sex Assigned at Not on file Legal Sex Female 3:37 AM CAFETERIA OR LUNCHROOM CHECKER Gender Identity Not on file Sexual Orientation Not on file documented as of this encounter Plan of Treatment Not on file documented as of this encounter Visit Diagnoses Not on filedocumented in this encounter Care Teams Director Of Enrollment Relationship Specialty Start Date End Date Chinmay Mendoza MD [address] [place] [phone] PCP - General Family Practice 06/22/19 documented as of this encounter
--- OUTSIDE RECORDS SUMMARY | 2025-08-04 11:54 | XMS_ITS | Encounter Summary ---
Author Organization [facility] Address [address] [place] [address] Care Team Providers Care Telehealth Nurse Name Role Phone Chinmay Mendoza MD Primary Care Provider Encounter Details Date Type Department Care Team (Latest Contact Info) Description 03/22/2002 Outpatient [facility] Gastroenterology[address] [place] [address] Peter Couch MD NO ADDRESS ON FILE Benign ruthie lg bowel (Primary Dx); PERS HX COLONIC POLYPS Social History Tobacco Use Types Packs/Day Years Used Date Smoking Tobacco: Never Assessed Comments Unknown Sex and Gender Information Value Date Recorded Sex Assigned at Not on file Legal Sex Female 3:37 AM ACCOUNTING LECTURER Gender Identity Not on file Sexual Orientation Not on file documented as of this encounter Plan of Treatment Not on file documented as of this encounter Visit Diagnoses Diagnosis Benign ruthie lg bowel- Primary Benign neoplasm of colon Personal history of colonic polyps documented in this encounter Care Teams Telehealth Nurse Relationship Specialty Start Date End Date Chinmay Mendoza MD [address] [place] [phone] PCP - General Family Practice 06/22/19 documented as of this encounter
--- OUTSIDE RECORDS SUMMARY | 2025-08-04 11:54 | XMS_ITS | Encounter Summary ---
Author Organization [facility] Address [address] [facility] Attn: [place] [address] Care Team Providers Care Maintenance Helper Utility Engineer Name Role Phone Chinmay Mendoza MD Primary Care Provider [phone] Encounter Details Date Type Department Care Team (Late st Contact Info) Description 01/07/2000 Inpatient Historical Nidia Gallardo MD [address] [facility] [place] [address] [place] [address] Social History Tobacco Use Types Packs/Day Years Used Date Smoking Tobacco: Never Assessed Comments Unknown Sex and Gender Information Value Date Recorded Sex Assigned at Not on file Legal Sex Female 3:37 AM DIRECTOR VETERINARY Gender Identity Not on file Sexual Orientation Not on file documented as of this encounter Plan of Treatment Not on file documented as of this encounter Visit Diagnoses Not on filedocumented in this encounter Care Teams Maintenance Helper Utility Engineer Relationship Specialty Start Date End Date Chinmay Mendoza MD [address] [place] [phone] PCP - General Family Practice 06/22/19 documented as of this encounter
--- OUTSIDE RECORDS SUMMARY | 2025-08-04 11:54 | XMS_ITS | Encounter Summary ---
Author Organization [facility] Address [address] [facility] Attn: [place] [address] Care Team Providers Care Advertising Agent Name Role Phone Chinmay Mendoza MD Primary Care Provider Encounter Details Date Type Department Care Team (Late st Contact Info) Description 12/13/1999 Outpatient Historical Fuad Mendez MD [address] [facility] D[address] [place] [phone] Social History Tobacco Use Types Packs/Day Years Used Date Smoking Tobacco: Never Assessed Comments Unknown Sex and Gender Information Value Date Recorded Sex Assigned at Not on file Legal Sex Female 3:37 AM MOHS SURGEON Gender Identity Not on file Sexual Orientation Not on file documented as of this encounter Plan of Treatment Not on file documented as of this encounter Visit Diagnoses Not on filedocumented in this encounter Care Teams Advertising Agent Relationship Specialty Start Date End Date Chinmay Mendoza MD [facility] [address] [phone] PCP - General Family Practice 06/22/19 documented as of this encounter
--- OUTSIDE RECORDS SUMMARY | 2025-08-04 11:54 | XMS_ITS | Encounter Summary ---
Author Organization [facility] Address [address] [place] [address] Care Team Providers Care Mill Set Up Name Role Phone Chinmay Mendoza MD Primary Care Provider [phone] Encounter Details Date Type Department Care Team (Late st Contact Info) Description 03/27/1999 Outpatient Historical [facility] OBGYN-[facility] Truong S[address] [place] [address] Nidia Gallardo MD [address] [facility] 200 [place] [address] Observ-suspect cond NEC (Primary Dx); Uterovaginal prolapse, unspecified; 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 Social History Tobacco Use Types Packs/Day Years Used Date Smoking Tobacco: Never Assessed Comments Unknown Sex and Gender Information Value Date Recorded Sex Assigned at Not on file Legal Sex Female 3:37 AM SEO PROFESSIONAL Gender Identity Not on file Sexual Orientation Not on file documented as of this encounter Plan of Treatment Not on file documented as of this encounter Visit Diagnoses Diagnosis Observ-suspect cond NEC- Primary Observation and evaluation for other specified suspected conditions Uterovaginal prolapse, unspecified 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 documented in this encounter Care Teams Mill Set Up Relationship Specialty Start Date End Date Chinmay Mendoza MD [address] [place] [phone] PCP - General Family Practice 06/22/19 documented as of this encounter
--- OUTSIDE RECORDS SUMMARY | 2025-08-04 11:54 | XMS_ITS | Encounter Summary ---
Author Organization [facility] Address [address] [place] [address] Care Team Providers Care Freezer Laboratory Technician Name Role Phone Chinmay Mendoza MD Primary Care Provider [phone] Encounter Details Date Type Department Care Team (Latest Contact Info) Description 12/13/1999 Outpatient Historical [facility] Urology- [address] Entrance B, 3rd [place] [address] Fuad Mendez MD [facility] [address] [place] [address] Mixed incontinence urge and stress (male)(female) (Primary Dx) Social History Tobacco Use Types Packs/Day Years Used Date Smoking Tobacco: Never Assessed Comments Unknown Sex and Gender Information Value Date Recorded Sex Assigned at Not on file Legal Sex Female 3:37 AM FROG SHAKER Gender Identity Not on file Sexual Orientation Not on file documented as of this encounter Plan of Treatment Not on file documented as of this encounter Visit Diagnoses Diagnosis Mixed incontinence urge and stress (male)(female)- Primary documented in this encounter Care Teams Freezer Laboratory Technician Relationship Specialty Start Date End Date Chinmay Mendoza MD [address] [place] [phone] PCP - General Family Practice 06/22/19 documented as of this encounter
--- OUTSIDE RECORDS SUMMARY | 2025-08-04 11:54 | XMS_ITS | Encounter Summary ---
Author Organization [facility] Address [address] [place] [address] Care Team Providers Care Grocery Sacker Name Role Phone Chinmay Mendoza MD Primary Care Provider Encounter Details Date Type Department Care Team (Late st Contact Info) Description 02/22/2000 Outpatient Historical [facility] OBGYN-D[place] Truong S[address] [place] [phone] Nidia Gallardo MD [address] [facility], [facility] [address] [place] [address] Follow-up examination following surgery (Primary Dx); 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 Social History Tobacco Use Types Packs/Day Years Used Date Smoking Tobacco: Never Assessed Comments Unknown Sex and Gender Information Value Date Recorded Sex Assigned at Not on file Legal Sex Female 3:37 AM OIL RIG ROUGHNECK Gender Identity Not on file Sexual Orientation Not on file documented as of this encounter Plan of Treatment Not on file documented as of this encounter Visit Diagnoses Diagnosis Follow-up examination following surgery- Primary 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 documented in this encounter Care Teams Grocery Sacker Relationship Specialty Start Date End Date Chinmay Mendoza MD [address] [place] [phone] PCP - General Family Practice 06/22/19 documented as of this encounter
--- OUTSIDE RECORDS SUMMARY | 2025-08-04 11:54 | XMS_ITS | Encounter Summary ---
Author Organization [facility] Address [address] [place] [address] Care Team Providers Care Leather Shaver Name Role Phone Chinmay Mendoza MD Primary Care Provider [phone] Encounter Details Date Type Department Care Team (Late st Contact Info) Description 05/10/1999 Outpatient Historical [facility] OBGYN-Dalton Truong Sury [address] [place] [phone] Nidia Gallardo MD [address] [facility] 200 [place] [address] Follow-up examination following surgery (Primary Dx); 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; Candidiasis of vulva and vagina Social History Tobacco Use Types Packs/Day Years Used Date Smoking Tobacco: Never Assessed Comments Unknown Sex and Gender Information Value Date Recorded Sex Assigned at Not on file Legal Sex Female 3:37 AM WOOD ROUTER HAND Gender Identity Not on file Sexual Orientation Not on file documented as of this encounter Plan of Treatment Not on file documented as of this encounter Visit Diagnoses Diagnosis Follow-up examination following surgery- Primary 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 Candidiasis of vulva and vagina documented in this encounter Care Teams Leather Shaver Relationship Specialty Start Date End Date Chinmay Mendoza MD [address] [place] [phone] PCP - General Family Practice 06/22/19 documented as of this encounter
--- OUTSIDE RECORDS SUMMARY | 2025-08-04 11:54 | XMS_ITS | Encounter Summary ---
Author Organization [facility] Address [address] [place] [address] Care Team Providers Care Charm Filter Operator Helper Name Role Phone Chinmay Mendoza MD Primary Care Provider [phone] Encounter Details Date Type Department Care Team (Late st Contact Info) Description 01/07/2000 Outpatient Historical [facility] OBGYN-Dal[place] Truong S[address] [place] [phone] Nidia Gallardo MD [address] [facility], [facility] 200 [place] [address] 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 (Primary Dx) Social History Tobacco Use Types Packs/Day Years Used Date Smoking Tobacco: Never Assessed Comments Unknown Sex and Gender Information Value Date Recorded Sex Assigned at Not on file Legal Sex Female 3:37 AM LITERACY CONSULTANT Gender Identity Not on file Sexual Orientation Not on file documented as of this encounter Plan of Treatment Not on file documented as of this encounter Visit Diagnoses Diagnosis 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- Primary documented in this encounter Care Teams Charm Filter Operator Helper Relationship Specialty Start Date End Date Chinmay Mendoza MD [address] [place] [phone] PCP - General Family Practice 06/22/19 documented as of this encounter
--- OUTSIDE RECORDS SUMMARY | 2025-08-04 11:54 | XMS_ITS | Clinical Summary ---
Author Organization [facility] Address [address] [address] Care Team Providers Care Social Worker Clinical Name Role Phone Chinmay Mendoza MD Primary Care Provider Allergies Active Allergy Reactions Criticality Noted Date [...] diabetic polyneuropathy, with long-term current use of insulin,Dyslipid emia, goal LDL below 70 Take 1 Tablet (10 mg) by mouth daily at bedtime. 90 Tablet 3 03/13/20 20 Active budesonide-formo teroL (SYMBICORT) 160-4.5 mcg/actuation HFA Aerosol InhalerIndicatio ns:Chronic obstructive pulmonary disease, unspecified COPD type (CMS/HCC),Shortn ess of breath at rest Take 2 Puffs by inhalation 2 times daily. 12 Gram 3 03/13/20 20 Active fluticasone propionate (FLONASE) 50 mcg/spray [place], Suspension nasal inhalerIndicatio ns:Acute maxillary sinusitis, recurrence not specified Administer 1 [place] in each nostril 2 times daily. 16 Gram 2 03/13/20 20 Active HYDROcodone-acet aminophen (NORCO) 5-325 mg tabletIndication s:Chronic pain syndrome,Fibromy algia,History of left knee replacement Take 1 Tablet by mouth 4 times daily as needed for Pain. 30 day supply Max Daily Amount: 4 Tablets 60 Tablet 03/17/20 Active Insulin Syringe-Needle U-100 0.3 mL 31 [...] polyneuropathy, with long-term current use of insulin Take 1 Tablet (10 mg) by mouth 2 times daily with meals. 180 Tablet 3 10/02/20 20 Active rOPINIRole (REQUIP) 1 mg tabletIndication s:Restless leg syndrome TAKE 1 TABLET EVERY DAY 90 Tablet 3 10/02/20 20 Active insulin glargine (Lantus Solostar U-100 Insulin) 100 unit/mL pen syringeIndicatio ns:Type 2 diabetes mellitus with diabetic polyneuropathy, with long-term current use of insulin Inject 24 Units by subcutaneous injection daily at bedtime. 15 mL 6 10/02/20 20 Active insulin regular (NovoLIN R Regular U-100 Insuln) 100 unit/mL vialIndications: Type 2 diabetes mellitus with diabetic polyneuropathy, with long-term current use of insulin INJECT 10 TO 15 UNITS SUBCUTANEOUSLY TWICE [...] 30 Tablet 1 12/07/19 21 Active Insulin [place], Disposable, (Lite Touch Insulin Pen [place]) 31 gauge x 5/16 Needle Daily with insulin 100 Each 2 01/11/20 Active blood sugar diagnostic (True Metrix Glucose Test Strip) StripIndications :Type 2 diabetes mellitus with diabetic polyneuropathy, with long-term current use of insulin CHECK BLOOD SUGARS TWICE A DAY AND [...] polyneuropathy, with long-term current use of insulin Check blood sugars twice a day and [...] 03/15/20 21 Active naloxone (NARCAN) 4 mg/spray [place], Non-Aerosol EMERGENCY USE ONLY: Administer 1 spray [...] 45.0-49.9, adult 07/07 Overview (07/28/2018): Per Kailey HUNG Type 2 diabetes mellitus wit h diabetic [...] Influenza Vaccine High Dose 65+ Yrs IM 10/10/201 9 Family History Medical History Relation Name [...] on file Legal Sex Female 3:37 AM REVENUE INTEGRITY ANALYST Gender Identity Not on file Sexual [...] RETINAL EXAM 04/04/2023, 09/10/2021, 07/13/2020 [place] Preventative Visit/Annual Wellness Visit 10/06/2024 INFLUENZA VACCINE [...] use of insulin ([facility]) DIABETES FOOT EXAM Routine 03/26/2018 from Last 3 Months or Most Recently Relevant to Health Maintenance Results * (ABNORMAL) LIPID PANEL (03/15/2021 3:35 PM CDT) CHOLESTEROL 151 <200 mg/dL [facility] HDL 48(L) > OR = 50 mg/dL [facility] TRIGLYCERIDE 95 <150 mg/dL [facility] LDL CALCULATED 84 mg/dL (calc) [facility] Comment: Reference range: <100 Desirable range <100 mg/dL for primary prevention; <70 mg/dL for patients with CHD or diabetic patients with > or = 2 CHD risk factors. LDL-C is now calculated using the Corin calculation, which is a validated novel method providing better accuracy than the Friedewald equation in the estimation of LDL-C. Rehan BEAUCHAMP et al. LAW. 2013;310(19): 9870-1465 (http://education.Snocap/faq/BZS677) CHOL/HDL RATIO 3.1 <5.0 (calc) [facility] TOTAL NON-HDL CHOL(LDL+VLDL) 103 <130 mg/dL (calc) [facility] Comment: For patients with diabetes plus 1 major ASCVD risk factor, treating to a non-HDL-C goal of <100 mg/dL (LDL-C of <70 mg/dL) is considered a therapeutic option. Test Performed at: [facility] [place] [address] James Shaw D.O., MPH Blood 03/15/2021 3:35 PM CDT 03/16/2021 3:17 AM CDT Jasmyn Atkins [facility] CHEMISTRY ORDERABLES Final Result Performing Organization Address [facility] Co de Phone Number [facility] [place] [address] * (ABNORMAL) HEMOGLOBIN A1C (03/15/2021 10:00 AM CDT) HEMOGLOBIN A1C 7.3(H) <5.7 % of total Hgb [facility] Comment: For someone without known diabetes, a [...] of diabetes for children. Test Performed at: [facility] [address] [place] [address] [place] [address] James Shaw D.O., MPH 03/15/2021 10:0 0 AM CDT 03/19/2021 11:59 PM CDT Jasmyn Atkins [facility] CHEMISTRY ORDERABLES Final Result Performing Organization Address [facility] Co de Phone Number [facility] [address] * MICROALBUMIN/CREATININE RATIO, RANDOM UR (07/13/2020 9:37 AM CDT) MICROALBUMIN, URINE <1.2 No Reference Range mg/dL 07/13/2020 9:54 PM CDT [facility] CREATININE, URINE 177.6 29.0 - 226.0 mg/dL 07/13/2020 9:54 PM CDT [facility] Comment:Reference Range vari es with fluid intake and diet. MICROALBUMIN/C REAT RATIO, UR <6.8 <25.0 mg/g 07/13/2020 9:54 PM T [facility] Urine URINE SPECIMEN OBTAINED BY CLEAN CATCH PROCEDURE / Unknown Collection / Unknown 07/13/2020 9:37 AM CDT 07/13/2020 8:03 PM CDT Narrative [facility] - 07/13/2020 9:54 PM CDT Condition Microalbumin/Creat ratio Normal Males <17 Normal Females <25 Microalbuminuria Males 17-299 Microalbuminuria Females 25-299 Overt proteinuria >=300 Jasmyn Atkisn [facility] URINE ORDERABLES Final Res ult [facility] CLIA# [id number] [address] [place] [address] * DIABETES FOOT EXAM (03/26/2018) us Abstract Spg Provider HEALTH MAINTENANCE Final R esult from Last 3 Months or Most Recently Relevant to Health Maintenance Insurance [facility] [employer] PLUS [id number] O Advance Directives For more information, please contact: [phone] * Full Code (Latest Code Status on [...] 12:13 PM 05/20/2018 4:55 PM Care Teams Social Worker Clinical Relationship Specialty Start Date End Date Chinmay Mendoza MD [address] [place], [place] [address]NEEL norman [phone] PCP - General Family Practice 06/22/19
--- OUTSIDE RECORDS SUMMARY | 2025-08-04 11:54 | XMS_ITS | Encounter Summary ---
Author Organization [facility] Address [address] [place] [address] Care Team Providers Care Neonatal Intensive Care Unit Nurse Name Role Phone Chinmay Mendoza MD Primary Care Provider Encounter Details Date Type Department Care Team (Late st Contact Info) Description 12/25/1999 Outpatient Historical [facility] OBGYN-Dalton Truong Sury [address] [place] [phone] Nidia Gallardo MD [address] [facility] 200 [place] [address] 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 (Primary Dx) Social History Tobacco Use Types Packs/Day Years Used Date Smoking Tobacco: Never Assessed Comments Unknown Sex and Gender Information Value Date Recorded Sex Assigned at Not on file Legal Sex Female 3:37 AM RADIAL DRILL PRESS SET UP OPERATOR Gender Identity Not on file Sexual Orientation Not on file documented as of this encounter Plan of Treatment Not on file documented as of this encounter Visit Diagnoses Diagnosis 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- Primary documented in this encounter Care Teams Neonatal Intensive Care Unit Nurse Relationship Specialty Start Date End Date Chinmay Mendoza MD [address] [place] [phone] PCP - General Family Practice 06/22/19 documented as of this encounter
--- OUTSIDE RECORDS SUMMARY | 2025-08-04 11:54 | XMS_ITS | Encounter Summary ---
Author Organization [facility] Address [address] [place] [address] Care Team Providers Care Learning Program Manager Name Role Phone Chinmay Mendoza MD Primary Care Provider [phone] Encounter Details Date Type Department Care Team (Late st Contact Info) Description 02/11/2020 Ancillary Orders [facility] [address] [address] Jasmyn Atkins FNP NO ADDRESS [...] on file Legal Sex Female 3:37 AM COUNTY BAILIFF Gender Identity Not on file Sexual Orientation [...] IMPRESSION: No apparent acute pathology. Jasmyn Atkins LIQUOR BRIDGE OPERATOR HELPER DIAGNOSTIC IMAGING ORDERAB LES Final Result documented in this encounter Visit Diagnoses Diagnosis Acute hip pain, bilateral Acute hip pain, bilateral documented in this encounter Additional Health Concerns Assessment Noted Time PHQ-9 Depression Total Score: 2 02/08/20 20 4:00 PM CDT documented as of this encounter Care Teams Learning Program Manager Relationship Specialty Start Date End Date Chinmay Mendoza MD [facility] [address] [phone] PCP - General Family Practice 06/22/19 documented as of this encounter
--- OUTSIDE RECORDS SUMMARY | 2025-08-04 11:54 | XMS_ITS | Encounter Summary ---
Author Organization [facility] Address [address] [place] [address] Care Team Providers Care Clinical Laboratory Aides Teacher Name Role Phone Chinmay Mendoza MD Primary Care Provider [phone] Encounter Details Date Type Department Care Team (Late st Contact Info) Description 01/22/2000 Outpatient Historical [facility] OBGYN-Dalton Truong Sury [address] [place] [phone] Nidia Gallardo MD [address] [facility] 200 [place] [address] Follow-up examination following surgery (Primary Dx); Prolapse of vaginal lody without mention of uterine prolapse Social History Tobacco Use Types Packs/Day Years Used Date Smoking Tobacco: Never Assessed Comments Unknown Sex and Gender Information Value Date Recorded Sex Assigned at Not on file Legal Sex Female 3:37 AM TRACK SWEEPER Gender Identity Not on file Sexual Orientation Not on file documented as of this encounter Plan of Treatment Not on file documented as of this encounter Visit Diagnoses Diagnosis Follow-up examination following surgery- Primary 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 documented in this encounter Care Teams Clinical Laboratory Aides Teacher Relationship Specialty Start Date End Date Chinmay Mendoza MD [address] [place] [phone] PCP - General Family Practice 06/22/19 documented as of this encounter
--- OUTSIDE RECORDS SUMMARY | 2025-08-04 11:54 | XMS_ITS | Encounter Summary ---
Author Organization [facility] Address [address] [place] [address] Care Team Providers Care Tree Doctor Name Role Phone Chinmay Mendoza MD Primary Care Provider Encounter Details Date Type Department Care Team (Late st Contact Info) Description 02/22/[address] [facility] [address] [facility] [address] [place] [address] Rama Hilliard MD NO ADDRESS ON FILE Family history of malignant neoplasm of breast (Primary Dx) Social History Tobacco Use Types Packs/Day Years Used Date Smoking Tobacco: Never Assessed Comments Unknown Sex and Gender Information Value Date Recorded Sex Assigned at Not on file Legal Sex Female 3:37 AM SURVEYING OR SPATIAL SCIENCE TECHNICIAN Gender Identity Not on file Sexual Orientation Not on file documented as of this encounter Plan of Treatment Not on file documented as of this encounter Visit Diagnoses Diagnosis Family history of malignant neoplasm of breast- Primary documented in this encounter Care Teams Tree Doctor Relationship Specialty Start Date End Date Chinmay Mendoza MD [address] [place] [phone] PCP - General Family Practice 06/22/19 documented as of this encounter
--- OUTSIDE RECORDS SUMMARY | 2025-08-04 11:54 | XMS_ITS | Encounter Summary ---
Author Organization [facility] Address [address] [place] [address] Care Team Providers Care Cloth Checker Name Role Phone Chinmay Mendoza MD Primary Care Provider Encounter Details Date Type Department Care Team (Latest Contact Info) Description 02/19/1999 Outpatient Historical [facility] [address] [facility] [address] [place] [address] Jacquelyn Brody MD NO ADDRESS ON FILE Family history of malignant neoplasm of breast (Primary Dx) Social History Tobacco Use Types Packs/Day Years Used Date Smoking Tobacco: Never Assessed Comments Unknown Sex and Gender Information Value Date Recorded Sex Assigned at Not on file Legal Sex Female 3:37 AM SPOILAGE WORKER Gender Identity Not on file Sexual Orientation Not on file documented as of this encounter Plan of Treatment Not on file documented as of this encounter Visit Diagnoses Diagnosis Family history of malignant neoplasm of breast- Primary documented in this encounter Care Teams Cloth Checker Relationship Specialty Start Date End Date Chinmay Mendoza MD [address] [place] [phone] PCP - General Family Practice 06/22/19 documented as of this encounter
--- OUTSIDE RECORDS SUMMARY | 2025-08-04 11:54 | XMS_ITS | Encounter Summary ---
Author Organization [facility] Address [address] [facility] Attn: [place] [address] Care Team Providers Care Plant Ecologist Name Role Phone Chinmay Mendoza MD Primary Care Provider Encounter Details Date Type Department Care Team (Late st Contact Info) Description 01/22/2000 Outpatient Historical Valentin Shaw MD [address] [facility] [address] [place] [address] Social History Tobacco Use Types Packs/Day Years Used Date Smoking Tobacco: Never Assessed Comments Unknown Sex and Gender Information Value Date Recorded Sex Assigned at Not on file Legal Sex Female 3:37 AM MOVING PICTURE OPERATOR Gender Identity Not on file Sexual Orientation Not on file documented as of this encounter Plan of Treatment Not on file documented as of this encounter Visit Diagnoses Not on filedocumented in this encounter Care Teams Plant Ecologist Relationship Specialty Start Date End Date Chinmay Mendoza MD [address] [place] [phone] PCP - General Family Practice 06/22/19 documented as of this encounter
--- OUTSIDE RECORDS SUMMARY | 2025-08-04 11:54 | XMS_ITS | Encounter Summary ---
Author Organization [facility] Address [address] Attn: [place] [address] Care Team Providers Care Duty Officer Name Role Phone Chinmay Mendoza MD Primary Care Provider [phone] Encounter Details Date Type Department Care Team (Late st Contact Info) Description 03/22/2002 Outpatient Historical Peter Couch MD NO ADDRESS ON FILE Social History Tobacco Use Types Packs/Day Years Used Date Smoking Tobacco: Never Assessed Comments Unknown Sex and Gender Information Value Date Recorded Sex Assigned at Not on file Legal Sex Female 3:37 AM [employer] Gender Identity Not on file Sexual Orientation Not on file documented as of this encounter Plan of Treatment Not on file documented as of this encounter Visit Diagnoses Not on filedocumented in this encounter Care Teams Duty Officer Relationship Specialty Start Date End Date Chinmay Mendoza MD [address] [place] [address] [place] [id number] PCP - General Family Practice 06/22/19 documented as of this encounter
[2025-08-04] MEDS: methylPREDNISolone sod succ 125 mg/2 mL INJ IVP (12:02)
[2025-08-04 12:03] LABS: ABG PCO2 44.8 mmHg (35-45); ABG PH Result 7.45 (7.35-7.45); Arterial Blood Gas Hematocrit 34.2 % (37-47); Blood Gas Allen Test Pos; Blood Gas Sample Type Arterial; Carboxyhemoglobin 1.5 %THgb (0.4-20.1); Glucose Level-ABG 153.0 mg/dL (70-115); HCO3 ABG 31.3 mmol/L (22-26); Ionized Calcium Level - ABG 1.2 mmol/L (1.1-1.4); Methemoglobin 0.2 % (0.4-1.5); Oxygen Saturation ABG 99.1; PO2 ABG 108.0 mmHg (80.0-100.0); Potassium Level - ABG 3.3 mmol/L (3.5-5.0); Sodium Level - ABG 138.0 mmol/L (131-143)
[2025-08-04] MEDS: diphenhydrAMINE 50 mg/mL SDV 1mL 25 MG IVP (12:03)
[2025-08-04 12:04] LABS: Alveolar-Arterial Oxygen Gradi 8.4 mmHg (5-10); Blood Gas LPM 3.0 %; Blood Gas Operator Identificat MONRO; Blood Gas Sample Site Brachial, right; PO2 FiO2 Ratio Arterial Blood 337
[2025-08-04 12:43] LABS: Respiratory Syncytial Virus Ce NEGATIVE (Negative); SARS-CoV-2 PCR NEGATIVE (Negative)
[2025-08-04] MEDS: hyDRALAzine 20 mg/mL INJ 1 mL 10 MG IVP (12:49)
--- NOTE | 2025-08-04 13:00 | CT_ITS ---
WS: [id number] CT HEAD NONCONTRAST HISTORY: New onset persistent headache TECHNIQUE: Contiguous axial imaging performed through the brain. Bone and soft tissue windows. Sagittal and coronal reformats reviewed. All CT scans at [facility] use at least one of these dose optimization techniques: automated exposure control; mA and/or kV adjustment per patient size (includes targeted exams where dose is matched to clinical indication); or iterative reconstruction. DLP: 1248.56 mGy.cm COMPARISON: 05/31/2012 No acute intracranial hemorrhage, midline shift or mass effect. Mild cerebral and cerebellar atrophy and small vessel disease. No prior large infarct. Ventricles: Normal size with no hydrocephalus. Paranasal sinuses: As visualized are clear. Mastoid air cells: Prior LEFT mastoidectomy. RIGHT mastoid air cells are clear. Calvarium and scalp: Skull is intact with no soft tissue edema or swelling. CT/CT head wo con* [id number] IMPRESSION: 1. No acute intracranial hemorrhage or edema. 2. Very mild cerebral cerebral atrophy and small vessel disease. 3. Prior LEFT mastoidectomy.
[2025-08-04] MEDS: morphine 4 mg/mL SDV 1 mL 2 MG IVP (13:25)
[2025-08-04] MEDS: morphine 4 mg/mL SDV 1 mL IVP (15:57)
[2025-08-04 16:54] LABS: Hematocrit 40.4 % (36-47); Hemoglobin 11.80 g/dL (11.27-16.99); Mean Corpuscular HGB Conc 29.2 g/dL (30-55); Mean Corpuscular Hemoglobin 26.9 pg (27-33); Mean Corpuscular Volume 92.2 fl (85-98); Nucleated Red Blood Cells % 0 %; Platelet Count 147 10^3/cmm (157-399); Red Blood Count 4.38 10^6/uL (3.85-5.65); White Blood Count 4.72 10^3/uL (3.29-11.43)
[2025-08-04 17:29] LABS: Alanine Aminotransferase 7 U/L (0-33); Albumin Level 3.7 g/dL (3.5-5.2); Alkaline Phosphatase 131 U/L (35-105); Blood Urea Nitrogen 12 mg/dL (8-23); Calcium 9.0 mg/dL (8.5-10.5); Carbon Dioxide 22 mmol/L (22-29); Chloride 97 mmol/L (98-107); Creatinine Clr Calc Pharmacy 58.7776; Globulin 3.7 g/dL (1.3-4.6); Glucose 163 mg/dL (65-115); Osmolality Calculated 281 mOsm/kg (285-295); Sodium 134 mmol/L (136-145); Total Protein 7.4 g/dL (6.6-8.7)
[2025-08-04 17:41] LABS: Anion Gap 19.2 (5-19); Aspartate Amino Transferase 19 U/L (0-32); Potassium 4.2 mmol/L (3.5-5.1)
== END 2025-08-04 17:26 | disposition home or self-care (01) ==
PROVIDERS: Emergency Provider Family Medicine; PCP Family Medicine
DX: R51.9 Headache, unspecified (principal); I10 Essential (primary) hypertension; Z11.52 Encounter for screening for COVID-19; J44.9 Chronic obstructive pulmonary disease, unspecified; E11.9 Type 2 diabetes mellitus without complications; Z85.828 Personal history of other malignant neoplasm of skin
CPT/HCPCS: 36415; 36600; 70450; 71045; 80051; 80053; 82330; 82805; 85025; 87637; 96361; 96374; 96375; 96376; 99285; J0360; J1200; J1885; J2270; J2919; J7040

== ENCOUNTER → 2025-08-09 13:23 | Outpatient (BNVA) | payer OTHER, MEDICAID, SELFPAY | PROVIDERS: PCP Family Medicine; Visit Provider Thoracic Surgery (Cardiothoracic Vascular Surgery) | DX: E11.52 Type 2 diabetes mellitus with diabetic peripheral angiopathy with gangrene (principal); E11.621 Type 2 diabetes mellitus with foot ulcer; L97.511 Non-pressure chronic ulcer of other part of right foot limited to breakdown of skin; L97.521 Non-pressure chronic ulcer of other part of left foot limited to breakdown of skin; L89.312 Pressure ulcer of right buttock, stage 2 | CPT/HCPCS: 97597; A6212 ==

== ENCOUNTER → 2025-08-16 08:06 | Outpatient (BNVA) | payer OTHER, MEDICAID, SELFPAY | PROVIDERS: PCP Family Medicine; Visit Provider Thoracic Surgery (Cardiothoracic Vascular Surgery) | DX: E11.52 Type 2 diabetes mellitus with diabetic peripheral angiopathy with gangrene (principal); E11.621 Type 2 diabetes mellitus with foot ulcer; L97.512 Non-pressure chronic ulcer of other part of right foot with fat layer exposed; L97.521 Non-pressure chronic ulcer of other part of left foot limited to breakdown of skin; E11.622 Type 2 diabetes mellitus with other skin ulcer; L89.022 Pressure ulcer of left elbow, stage 2; L89.312 Pressure ulcer of right buttock, stage 2 | CPT/HCPCS: 11042; 97597 ==

== ENCOUNTER → 2025-09-06 09:30 | Outpatient (BNVA) | payer OTHER, MEDICAID, SELFPAY | PROVIDERS: PCP Family Medicine; Visit Provider Family Medicine | DX: I10 Essential (primary) hypertension (principal); E10.69 Type 1 diabetes mellitus with other specified complication; M34.9 Systemic sclerosis, unspecified; R79.89 Other specified abnormal findings of blood chemistry | CPT/HCPCS: 80053; 80061; 82607; 83036; 84443; 85025 ==

== ENCOUNTER → 2025-09-09 09:57 | Outpatient (BNVA) | payer OTHER, MEDICAID, SELFPAY | PROVIDERS: PCP Family Medicine; Visit Provider Thoracic Surgery (Cardiothoracic Vascular Surgery) | DX: E11.52 Type 2 diabetes mellitus with diabetic peripheral angiopathy with gangrene (principal); E11.621 Type 2 diabetes mellitus with foot ulcer; L97.515 Non-pressure chronic ulcer of other part of right foot with muscle involvement without evidence of necrosis; L97.511 Non-pressure chronic ulcer of other part of right foot limited to breakdown of skin; E11.622 Type 2 diabetes mellitus with other skin ulcer; L97.811 Non-pressure chronic ulcer of other part of right lower leg limited to breakdown of skin; L89.312 Pressure ulcer of right buttock, stage 2; L89.012 Pressure ulcer of right elbow, stage 2 | CPT/HCPCS: 11042; 87070; 87077; 87186; 97597; A6213 ==